=== PATIENT | female | born 1995 | race Caucasian/White ===

== ENCOUNTER 2018-01-15 03:15 | Emergency (ER) | payer BC ==
--- NOTE | 2018-01-15 03:25 | ED ---
Back Pain [facility] - General Chief Complaint: Back Pain/Injury Stated Complaint: back pain Time Seen by Provider: 01/15/18 03:24 Source: patient Limitations: no limitations - History of Present Illness Initial Comments: Camila is a 22-year-old female who presents to the emergency department today for evaluation of 3 days of low back pain as well as missed menstrual cycle. She reports that approximately one year ago she had a fall in which she broke her tailbone, she is subsequently been following with a chiropractor approximately once a month for adjustments of her lower back. Patient reports that her last adjustment was approximately one month ago. She reports over the past 3 days she's been experiencing some pain in her low back bilaterally. Pain is worse with any movement. Pain is minimally improved with Tylenol, pain resolves when she is applying a heating pad but returns when she removes the heating pad. Patient denies any recent heavy lifting or twisting, she denies any specific injuries. She hasn't had any slips falls or car accidents. Pain came on without provocation. Patient denies any radiation of the pain down her legs. She denies any numbness or tingling in legs. She denies any loss of sensation in the perineum. She denies any bowel or bladder incontinence or retention. She denies any weakness or change in her gait. History of IV drug abuse, she's had no history of cancers. She denies any recent fevers chills nausea or vomiting. Patient also states that in June of this year she was evaluated by gynecology and placed on oral contraceptive pills to regulate her irregular periods patient states that since that time she has had regular periods at the regularly scheduled time with her pills. She states that she should've had a period approximately 10 days ago and didn't. She is sexually active with a single male partner, she has not taken any tests at home. Her test here today is negative. - Related Data Home Medications Medication Instructions Recorded Confirmed Levonorgestrel-Ethin Estradiol 1 tab PO DAILY 08/22/15 02/24/16 [Falmina-28 Tablet] Multivitamins, Thera [Multivitamin] 1 tab PO DAILY 08/22/15 02/24/16 Levothyroxine Sodium [Synthroid] 50 mcg PO DAILY 12/08/15 02/24/16 Ibuprofen [Motrin] 600 mg PO Q8HR PRN 01/16/16 02/20/16 Previous Rx's Medication Instructions Recorded Lidocaine 5% Patch [Lidoderm] 1 patch TOPICAL DAILY #30 patch 01/15/18 Methocarbamol [Robaxin-750] 750 mg PO TID #30 tablet 01/15/18 Allergies Allergy/AdvReac Type Severity Reaction Status Date / Time sulfamethoxazole Allergy Rash/Hives Verified 01/15/18 03:22 [From Bactrim] trimethoprim [From Bactrim] Allergy Rash/Hives Verified 01/15/18 03:22 Review of Systems ROS Statement: Those systems with pertinent positive or pertinent negative responses have been documented in the HPI. ROS Other: All systems not noted in ROS Statement are negative. Past Medical History Past Medical History: Syncope, Thyroid Disorder Additional Past Medical History / Comment(s): see DR Steen H & P History of Any Multi-Drug Resistant Organisms: MRSA Date of last positivie culture/infection: 2009 MDRO Source:: buttock Past Surgical History: No Surgical Hx Reported Additional Past Surgical History / Comment(s): wisdom teeth removed Past Anesthesia/Blood Transfusion Reactions: No Reported Reaction Past Psychological History: No Psychological Hx Reported Smoking Status: Never smoker Past Alcohol Use History: Rare Past Drug Use History: None Reported - Past Family History Mother Family Medical History: No Reported History General Exam - General Exam Comments Initial Comments: GENERAL: Patient is well-developed and well-nourished. Patient is nontoxic and well- hydrated and is in no distress. HENT: Normocephalic, Atraumatic. Neck is soft and supple. EYES: The sclera were anicteric and conjunctiva were pink and moist. Extraocular movements were intact and pupils were equal round and reactive to light. Eyelids were unremarkable. PULMONARY: Unlabored respirations. Good breath sounds bilaterally. No audible rales rhonchi or wheezing was noted. CARDIOVASCULAR: There is a regular rate and rhythm without any murmurs gallops or rubs. ABDOMEN: Soft and nontender with normal bowel sounds. SKIN: Skin is clear with no lesions or rashes and otherwise unremarkable. NEUROLOGIC: Patient is alert and oriented x3. Cranial nerves II through XII are grossly intact. Motor and sensory are also intact. Normal speech, volume and content. Symmetrical smile. Normal patellar reflexes bilaterally. Normal strength and sensation in the bilateral lower extremities. MUSCULOSKELETAL: Normal extremities with adequate strength and full range of motion. No lower extremity swelling or edema. No calf tenderness. LYMPHATICS: No significant lymphadenopathy is noted PSYCHIATRIC: Normal psychiatric evaluation. Limitations: no limitations Limitations: no limitations Course Vital Signs 01/15/18 01/15/18 03:18 05:25 Temperature 99 F 98.5 F Pulse Rate 97 90 Respiratory 18 16 Rate Blood Pressure 146/79 128/91 O2 Sat by Pulse 100 99 Oximetry Medical Decision Making - Medical Decision Making Patient was seen and evaluated, history obtained from the patient and her mother bedside She with 3 days of atraumatic low back pain, no red flag symptoms Patient also missed her menses this month, urinalysis and urine tests were obtained Urinalysis feels gross contamination with squamous epithelium but no evidence of acute urinary tract infection, and urine test negative I have a high suspicion for musculoskeletal etiology of the patient's pain will treat with Norflex, Toradol and Lidoderm Patient was reevaluated after meds. Reported some improvement in her discomfort. Management of acute low back pain was discussed with the patient including avoidance of complete bedrest as this can worsen musculoskeletal pain. Avoidance of heavy lifting or exertion. All questions pertaining to care were answered best my ability the patient is discharged home in stable condition. - Lab Data Lab Results 01/15/18 01/15/18 Range/Units 03:50 03:50 Urine Color Yellow Urine Appearance Cloudy H (Clear) Urine pH 5.5 (5.0-8.0) Ur Specific [place] 1.022 (1.001-1.035) Urine Protein Negative (Negative) Urine Glucose (UA) Negative (Negative) Urine Ketones Negative (Negative) Urine Blood Trace H (Negative) Urine Nitrite Negative (Negative) Urine Bilirubin Negative (Negative) Urine Urobilinogen <2.0 (<2.0) mg/dL Ur Leukocyte Esterase Large H (Negative) Urine RBC 4 (0-5) /hpf Urine WBC 11 H (0-5) /hpf Ur Squamous Epith Cells 20 H (0-4) /hpf Urine Mucus Rare H (None) /hpf Urine HCG, Qual Not Detected (Not Detectd) Disposition Clinical Impression: Mechanical back pain, Irregular menses Disposition: HOME SELF-CARE Condition: Good Instructions: Acute Low Back Pain (ED) Prescriptions: Lidocaine 5% Patch [Lidoderm] 1 patch TOPICAL DAILY #30 patch Methocarbamol [Robaxin-750] 750 mg PO TID #30 tablet Is patient prescribed a controlled substance at d/c from ED?: No Referrals: Jessica Cotter MD [Primary Care Provider] - 1-2 days Time of Disposition: 05:18
[2018-01-15 04:03] LABS: Appearance,Urine Cloudy (Clear); Bilirubin,Urine Negative (Negative); Blood,Urine Trace (Negative); Color,Urine Yellow; Glucose,Urine (UA) Negative (Negative); Ketones,Urine Negative (Negative); Leukocyte Esterase,Urine Large (Negative); Mucus,Urine Rare /hpf; Nitrite,Urine Negative (Negative); PH, Urine 5.5 (5.0-8.0); Protein,Urine Negative (Negative); RBC,Urine 4 /hpf (0-5); Specific Gravity,Urine 1.022 (1.001-1.035); Squamous Epithelial Cell,Urine 20 /hpf (0-4); Urobilinogen,Urine <2.0 mg/dL (<2.0); WBC,Urine 11 /hpf (0-5)
[2018-01-15] MEDS ORDERED: ORPHENADRINE 30 MG/ML 2 ML VIAL IM STA (04:18)
[2018-01-15] MEDS ORDERED: KETOROLAC 30 MG/ML 1 ML VIAL IM STA (04:27)
[2018-01-15] MEDS ORDERED: LIDOCAINE 5% PATCH TOPICAL SCH (04:30)
[2018-01-15 05:26] VITALS: BP 128/91; PULSE 90; RESP 16; TEMP 98.5
== END 2018-01-15 05:26 | disposition home or self-care (01) ==
LOC: EC 03:15
DX: M54.5 Low back pain (principal); N92.6 Irregular menstruation, unspecified; Z32.02 Encounter for pregnancy test, result negative; Z79.899 Other long term (current) drug therapy; Z88.2 Allergy status to sulfonamides
CPT/HCPCS: 81001; 81025; 99283; 96372 ×2; J2360; J1885

== ENCOUNTER → 2018-01-26 | Outpatient (CLI) | payer BC ==
--- NOTE | 2018-01-26 15:08 | XR ---
Lumbosacral spine HISTORY: Low back pain 5 views of the lumbosacral spine Anterolisthesis grade 1 L5-S1 with associated loss of disc height. Bilateral spondylolysis present at L5. Lumbar vertebral bodies show preserved height and bone mineralization. Possible spinal curvature . IMPRESSION: Spondylolysis, spondylolisthesis.
== END | disposition home or self-care (01) ==
LOC: RADXRYALE 13:15
PROVIDERS: ATTEND Internal Medicine
DX: M43.17 Spondylolisthesis, lumbosacral region (principal); M47.817 Spondylosis without myelopathy or radiculopathy, lumbosacral region
CPT/HCPCS: 72110

== ENCOUNTER 2018-07-25 08:40 | Emergency (ER) | payer BC ==
[2018-07-25 08:47] VITALS: RESP 18
[2018-07-25] MEDS ORDERED: SODIUM CHLORIDE 0.9% 1,000 ML IV STA (09:25)
[2018-07-25] MEDS ORDERED: ONDANSETRON 4 MG/2 ML VIAL IVP STA (09:26)
--- NOTE | 2018-07-25 09:35 | ED ---
Nausea/Vomiting/Diarrhea HPI - General Chief complaint: Nausea/Vomiting/Diarrhea Stated complaint: nausea, weakness Time Seen by Provider: 07/25/18 09:18 Source: patient, RN notes reviewed Mode of arrival: ambulatory Limitations: no limitations - History of Present Illness Initial comments: 21-year-old female presents emergency Department with chief complaint of ongoing nausea, palpitations. Patient states she had some symptoms on Wednesday while in class for school. She states that she felt very sweaty states that her was racing. She did eat some candy in which his symptoms resolved so she felt that she did to some hypoglycemia. Patient that she is on her way to school again today states that she was driving started feeling her heart was racing and pulled over: Mother brought to emergency department. Patient states that she's having worsening nausea but no abdominal pain. She has no history of reflux. She denies any chest pain. She states the palpitations have resolved again. Denies feeling anxious. Patient does admit that she has a history of hypothyroidism but states that she has not been taking her medication because she does not like the fact that she cannot eat while taking her medication the morning. Patient denies any dysuria, hematuria. She does admit that she takes control but states that she's been seen control. Patient denies any upper chest pain, headache, dizziness, blurred vision or any focal weakness. - Related Data Home Medications Medication Instructions Recorded Confirmed Lo Loestrin 1 tab PO HS 07/25/18 07/25/18 Previous Rx's Medication Instructions Recorded Omeprazole [PriLOSEC] 20 mg PO AC-BRKFST #14 cap 07/25/18 Ondansetron Odt [Zofran Odt] 4 mg PO Q8HR PRN #10 tab 07/25/18 Allergies Allergy/AdvReac Type Severity Reaction Status Date / Time sulfamethoxazole Allergy Rash/Hives Verified 07/25/18 08:47 [From Bactrim] trimethoprim [From Bactrim] Allergy Rash/Hives Verified 07/25/18 08:47 Review of Systems ROS Statement: Those systems with pertinent positive or pertinent negative responses have been documented in the HPI. ROS Other: All systems not noted in ROS Statement are negative. Past Medical History Past Medical History: Syncope, Thyroid Disorder Additional Past Medical History / Comment(s): see DR Steen H & P History of Any Multi-Drug Resistant Organisms: MRSA Date of last positivie culture/infection: 2009 MDRO Source:: buttock Past Surgical History: No Surgical Hx Reported Additional Past Surgical History / Comment(s): wisdom teeth removed Past Anesthesia/Blood Transfusion Reactions: No Reported Reaction Past Psychological History: No Psychological Hx Reported Smoking Status: Never smoker Past Alcohol Use History: Rare Past Drug Use History: None Reported - Past Family History Mother Family Medical History: No Reported History General Exam Limitations: no limitations General appearance: alert, in no apparent distress Head exam: Present: atraumatic, normocephalic, normal inspection Eye exam: Present: normal appearance, PERRL, EOMI. Absent: scleral icterus, conjunctival injection, periorbital swelling ENT exam: Present: normal exam, normal oropharynx, mucous membranes moist, TM's normal bilaterally Neck exam: Present: normal inspection, full ROM. Absent: tenderness, meningismus, lymphadenopathy Respiratory exam: Present: normal lung sounds bilaterally. Absent: respiratory distress, wheezes, rales, rhonchi, stridor Cardiovascular Exam: Present: regular rate, normal rhythm, normal heart sounds. Absent: systolic murmur, diastolic murmur, rubs, gallop, clicks GI/Abdominal exam: Present: soft, normal bowel sounds. Absent: distended, tenderness, guarding, rebound, rigid Neurological exam: Present: alert, oriented X3, CN II-XII intact Skin exam: Present: warm, dry, intact, normal color. Absent: rash Course Vital Signs 07/25/18 08:45 Temperature 98.2 F Pulse Rate 96 Respiratory 18 Rate Blood Pressure 140/86 O2 Sat by Pulse 99 Oximetry Medical Decision Making - Medical Decision Making 23-year-old female presented emergency department for palpitations, nausea. Patient's labwork is unremarkable. TSH is unremarkable. Patient did have a headache T3 at this time. Patient will follow-up with cardiology for palpitations, we given and antacids for her possible GERD. Return parameters were discussed. - Lab Data Result diagrams: 07/25/18 09:34 07/25/18 09:34 Lab Results 07/25/18 07/25/18 07/25/18 Range/Units 09:15 09:15 09:34 WBC 10.6 (3.8-10.6) k/uL RBC 4.77 (3.80-5.40) m/uL Hgb 14.0 (11.4-16.0) gm/dL Hct 42.8 (34.0-46.0) % MCV 89.9 (80.0-100.0) fL MCH 29.5 (25.0-35.0) pg MCHC 32.8 (31.0-37.0) g/dL RDW 12.9 (11.5-15.5) % Plt Count 372 (150-450) k/uL Neutrophils % 57 % Lymphocytes % 35 % Monocytes % 5 % Eosinophils % 1 % Basophils % 1 % Neutrophils # 6.1 (1.3-7.7) k/uL Lymphocytes # 3.7 (1.0-4.8) k/uL Monocytes # 0.5 (0-1.0) k/uL Eosinophils # 0.2 (0-0.7) k/uL Basophils # 0.1 (0-0.2) k/uL Sodium (137-145) mmol/L Potassium (3.5-5.1) mmol/L Chloride (98-107) mmol/L Carbon Dioxide (22-30) mmol/L Anion Gap mmol/L BUN (7-17) mg/dL Creatinine (0.52-1.04) mg/dL Est GFR (CKD-EPI)AfAm (>60 ml/min/1.73 sqM) Est GFR (CKD-EPI)NonAf (>60 ml/min/1.73 sqM) Glucose (74-99) mg/dL Calcium (8.4-10.2) mg/dL Total Bilirubin (0.2-1.3) mg/dL AST (14-36) U/L ALT (9-52) U/L Alkaline Phosphatase (38-126) U/L Total Protein (6.3-8.2) g/dL Albumin (3.5-5.0) g/dL Lipase (23-300) U/L TSH (0.465-4.680) mIU/L Urine Color Yellow Urine Appearance Clear (Clear) Urine pH 6.0 (5.0-8.0) Ur Specific [place] 1.015 (1.001-1.035) Urine Protein Negative (Negative) Urine Glucose (UA) Negative (Negative) Urine Ketones Negative (Negative) Urine Blood Negative (Negative) Urine Nitrite Negative (Negative) Urine Bilirubin Negative (Negative) Urine Urobilinogen <2.0 (<2.0) mg/dL Ur Leukocyte Esterase Negative (Negative) Urine HCG, Qual Not Detected (Not Detectd) 07/25/18 Range/Units 09:34 WBC (3.8-10.6) k/uL RBC (3.80-5.40) m/uL Hgb (11.4-16.0) gm/dL Hct (34.0-46.0) % MCV (80.0-100.0) fL MCH (25.0-35.0) pg MCHC (31.0-37.0) g/dL RDW (11.5-15.5) % Plt Count (150-450) k/uL Neutrophils % % Lymphocytes % % Monocytes % % Eosinophils % % Basophils % % Neutrophils # (1.3-7.7) k/uL Lymphocytes # (1.0-4.8) k/uL Monocytes # (0-1.0) k/uL Eosinophils # (0-0.7) k/uL Basophils # (0-0.2) k/uL Sodium 139 (137-145) mmol/L Potassium 4.5 (3.5-5.1) mmol/L Chloride 107 (98-107) mmol/L Carbon Dioxide 23 (22-30) mmol/L Anion Gap 9 mmol/L BUN 12 (7-17) mg/dL Creatinine 0.64 (0.52-1.04) mg/dL Est GFR (CKD-EPI)AfAm >90 (>60 ml/min/1.73 sqM) Est GFR (CKD-EPI)NonAf >90 (>60 ml/min/1.73 sqM) Glucose 92 (74-99) mg/dL Calcium 9.9 (8.4-10.2) mg/dL Total Bilirubin 0.3 (0.2-1.3) mg/dL AST 21 (14-36) U/L ALT 24 (9-52) U/L Alkaline Phosphatase 57 (38-126) U/L Total Protein 7.8 (6.3-8.2) g/dL Albumin 4.7 (3.5-5.0) g/dL Lipase 49 (23-300) U/L TSH 1.650 (0.465-4.680) mIU/L Urine Color Urine Appearance (Clear) Urine pH (5.0-8.0) Ur Specific [place] (1.001-1.035) Urine Protein (Negative) Urine Glucose (UA) (Negative) Urine Ketones (Negative) Urine Blood (Negative) Urine Nitrite (Negative) Urine Bilirubin (Negative) Urine Urobilinogen (<2.0) mg/dL Ur Leukocyte Esterase (Negative) Urine HCG, Qual (Not Detectd) - EKG Data EKG Comments: EKG performed at 9:52 normal sinus rhythm with rate of 71. 150 QRS 80 QT/QTC 396/4:30 Disposition Clinical Impression: Palpitations, GERD (gastroesophageal reflux disease), Nausea Disposition: HOME SELF-CARE Condition: Stable Instructions (If sedation given, give patient instructions): Heart Palpitations (ED), Gastroesophageal Reflux Disease (ED) Additional Instructions: Please return to the Emergency Department if symptoms worsen or any other concerns. Prescriptions: Omeprazole [PriLOSEC] 20 mg PO AC-BRKFST #14 cap Ondansetron Odt [Zofran Odt] 4 mg PO Q8HR PRN #10 tab PRN Reason: Nausea Is patient prescribed a controlled substance at d/c from ED?: No Referrals: Jessica Cotter MD [Primary Care Provider] - 1-2 days Aj Steen MD [STAFF PHYSICIAN] - 1-2 days Time of Disposition: 11:18
[2018-07-25 10:10] LABS: Basophils # (A) 0.1 k/uL (0-0.2); Basophils % (A) 1 %; Eosinophils # (A) 0.2 k/uL (0-0.7); Eosinophils % (A) 1 %; HCT 42.8 % (34.0-46.0); Lymphocytes # (A) 3.7 k/uL (1.0-4.8); Lymphocytes % (A) 35 %; MCH 29.5 pg (25.0-35.0); MCHC 32.8 g/dL (31.0-37.0); MCV 89.9 fL (80.0-100.0); Mean Platelet Volume 7.2; Monocytes # (A) 0.5 k/uL (0-1.0); Monocytes % (A) 5 %; Neutrophils # (A) 6.1 k/uL (1.3-7.7); Neutrophils % (A) 57 %; Platelet Count 372 k/uL (150-450); RBC 4.77 m/uL (3.80-5.40); RDW 12.9 % (11.5-15.5); WBC 10.6 k/uL (3.8-10.6)
[2018-07-25 10:22] LABS: ALT 24 U/L (9-52); AST 21 U/L (14-36); Albumin 4.7 g/dL (3.5-5.0); Alkaline Phosphatase 57 U/L (38-126); Anion Gap 9 mmol/L; Blood Urea Nitrogen 12 mg/dL (7-17); Calcium 9.9 mg/dL (8.4-10.2); Carbon Dioxide 23 mmol/L (22-30); Chloride 107 mmol/L (98-107); Glucose 92 mg/dL (74-99); Lipase 49 U/L (23-300); Potassium 4.5 mmol/L (3.5-5.1); Sodium 139 mmol/L (137-145); Total Bilirubin 0.3 mg/dL (0.2-1.3); Total Protein 7.8 g/dL (6.3-8.2)
[2018-07-25 10:48] LABS: Appearance,Urine Clear (Clear); Color,Urine Yellow
[2018-07-25 10:49] LABS: Glucose,Urine (UA) Negative (Negative); Protein,Urine Negative (Negative); Specific Gravity,Urine 1.015 (1.001-1.035)
[2018-07-25 10:50] LABS: Bilirubin,Urine Negative (Negative); Blood,Urine Negative (Negative); Ketones,Urine Negative (Negative); Leukocyte Esterase,Urine Negative (Negative); Nitrite,Urine Negative (Negative); Urobilinogen,Urine <2.0 mg/dL (<2.0)
[2018-07-25 11:34] VITALS: BP 120/82; PULSE 74; TEMP 98.6
== END 2018-07-25 11:34 | disposition home or self-care (01) ==
LOC: EC 08:40
DX: K21.9 Gastro-esophageal reflux disease without esophagitis (principal); R00.2 Palpitations; R11.0 Nausea; R51 Headache; Z88.1 Allergy status to other antibiotic agents; Z88.2 Allergy status to sulfonamides; Z91.14 Patient's other noncompliance with medication regimen
CPT/HCPCS: 36415; 93005; 80053; 84443; 83690; 85025; 81003; 81025; 84480; 99284; 96374; 96361; J2405

== ENCOUNTER 2019-05-22 16:03 | Emergency (ER) | payer BC ==
[2019-05-22 16:58] VITALS: TEMP 99
[2019-05-22] MEDS ORDERED: SODIUM CHLORIDE 0.9% 1,000 ML IV STA ×2 (17:32→17:35)
[2019-05-22] MEDS ORDERED: AMPICILLIN-SULBACTAM 3 GM in SODIUM CHLORIDE 0.9% 100 ML IVPB STA (17:32)
[2019-05-22] MEDS ORDERED: SODIUM CHLORIDE 0.9% 500 ML 500 ML IV STA (17:32)
[2019-05-22] MEDS ORDERED: DEXAMETHASONE SOD PHOSPHATE 10 MG/ML 1 ML VIAL IV STA (17:32)
[2019-05-22] MEDS ORDERED: ACETAMINOPHEN TAB 500 MG TAB PO STA (17:33)
--- NOTE | 2019-05-22 17:49 | ED ---
General Adult HPI - General Chief complaint: Fever Stated complaint: dizziness/swollen tongue Time Seen by Provider: 05/22/19 17:03 Source: patient, RN notes reviewed Mode of arrival: ambulatory Limitations: no limitations - History of Present Illness Initial comments: 24-year-old female with a past mental history tachycardia, syncope, thyroid disorder presents to the emergency department for chief complaint of fever. Patient states she has had a fever for 6 days. She last took Motrin about 5 hours ago. States that she had a positive strep test at urgent care yesterday. States that she has had antibiotic for 24 hours but her mother was concerned she is dehydrated given the painful sores on her lip and tongue so she wanted her to be evaluated in the emergency department. States she has not been eating or drinking as much as normal.denies neck stiffness. Denies difficulty swallowing. Patient has no other complaints at this time including shortness of breath, chest pain, abdominal pain, nausea or vomiting, headache, or visual changes. - Related Data Home Medications Medication Instructions Recorded Confirmed Lo Loestrin 1 tab PO HS 07/25/18 07/25/18 Previous Rx's Medication Instructions Recorded Omeprazole [PriLOSEC] 20 mg PO AC-BRKFST #14 cap 07/25/18 Ondansetron Odt [Zofran Odt] 4 mg PO Q8HR PRN #10 tab 07/25/18 Lidocaine Viscous 2% [Xylocaine 5 ml MUCOUS MEM QID #50 ml 05/22/19 Viscous] Allergies Allergy/AdvReac Type Severity Reaction Status Date / Time sulfamethoxazole Allergy Rash/Hives Verified 05/22/19 16:58 [From Bactrim] trimethoprim [From Bactrim] Allergy Rash/Hives Verified 05/22/19 16:58 Review of Systems ROS Statement: Those systems with pertinent positive or pertinent negative responses have been documented in the HPI. ROS Other: All systems not noted in ROS Statement are negative. Past Medical History Past Medical History: Syncope, Thyroid Disorder Additional Past Medical History / Comment(s): see DR Steen H & P History of Any Multi-Drug Resistant Organisms: MRSA Date of last positivie culture/infection: 2009 MDRO Source:: buttock Past Surgical History: No Surgical Hx Reported Additional Past Surgical History / Comment(s): wisdom teeth removed Past Anesthesia/Blood Transfusion Reactions: No Reported Reaction Past Psychological History: No Psychological Hx Reported Smoking Status: Never smoker Past Alcohol Use History: Rare Past Drug Use History: None Reported - Past Family History Mother Family Medical History: No Reported History General Exam Limitations: no limitations General appearance: alert, in no apparent distress Head exam: Present: atraumatic, normocephalic, normal inspection Eye exam: Present: normal appearance, PERRL, EOMI. Absent: scleral icterus, conjunctival injection, periorbital swelling ENT exam: Present: normal exam, mucous membranes dry, normal external ear exam. Absent: normal oropharynx (Patient has white plaque noted to the dorsum of the tongue. She also has superficial resting sores noted to the lower lip) Neck exam: Present: normal inspection, full ROM. Absent: tenderness, meningismus, lymphadenopathy Respiratory exam: Present: normal lung sounds bilaterally. Absent: respiratory distress, wheezes, rales, rhonchi, stridor Cardiovascular Exam: Present: regular rate, normal rhythm, normal heart sounds. Absent: systolic murmur, diastolic murmur, rubs, gallop, clicks GI/Abdominal exam: Present: soft, normal bowel sounds. Absent: distended, te nderness, guarding, rebound, rigid Neurological exam: Present: alert Course Vital Signs 05/22/19 05/22/19 05/22/19 16:54 18:17 19:23 Temperature 99.0 F Pulse Rate 129 H 110 H 116 H Respiratory 24 16 18 Rate Blood Pressure 142/92 119/93 O2 Sat by Pulse 100 98 99 Oximetry Medical Decision Making - Medical Decision Making HPI and physical exam is documented. Physical exam is pertinent for white plaque on the dorsum of the tongue as well as x-rays on the bilateral tonsils. However uvula is midline. Tonsillar pillars are symmetric. Patient initially tachycardic on presentation to the emergency department which is likely secondary to fever and dehydration. This did improve to 94 when I am in the room after Tylenol and fluids. CBC CMP unremarkable. Minimal transaminitis. Urinalysis does show 2+ ketones. It'll be cultured otherwise. Patient was given IV Decadron, Unasyn here in the emergency department. She does not have any difficulty swallowing and will continue amoxicillin at home. She will follow up with primary care in 1-2 days. She'll return here if she has any worsening symptoms. - Lab Data Result diagrams: 05/22/19 17:58 05/22/19 17:58 Lab Results 05/22/19 05/22/19 05/22/19 Range/Units 17:58 17:58 17:58 WBC 9.0 (3.8-10.6) k/uL RBC 4.51 (3.80-5.40) m/uL Hgb 13.8 (11.4-16.0) gm/dL Hct 40.2 (34.0-46.0) % MCV 89.0 (80.0-100.0) fL MCH 30.6 (25.0-35.0) pg MCHC 34.4 (31.0-37.0) g/dL RDW 11.5 (11.5-15.5) % Plt Count 295 (150-450) k/uL Neutrophils % 67 % Lymphocytes % 22 % Monocytes % 8 % Eosinophils % 1 % Basophils % 1 % Neutrophils # 6.0 (1.3-7.7) k/uL Lymphocytes # 2.0 (1.0-4.8) k/uL Monocytes # 0.7 (0-1.0) k/uL Eosinophils # 0.0 (0-0.7) k/uL Basophils # 0.1 (0-0.2) k/uL Sodium 138 (137-145) mmol/L Potassium 3.8 (3.5-5.1) mmol/L Chloride 101 (98-107) mmol/L Carbon Dioxide 24 (22-30) mmol/L Anion Gap 13 mmol/L BUN 11 (7-17) mg/dL Creatinine 0.64 (0.52-1.04) mg/dL Est GFR (CKD-EPI)AfAm >90 (>60 ml/min/1.73 sqM) Est GFR (CKD-EPI)NonAf >90 (>60 ml/min/1.73 sqM) Glucose 90 (74-99) mg/dL Plasma Lactic Acid Danny 1.1 (0.7-2.0) mmol/L Calcium 9.3 (8.4-10.2) mg/dL Total Bilirubin 0.7 (0.2-1.3) mg/dL AST 38 H (14-36) U/L ALT 35 H (4-34) U/L Alkaline Phosphatase 98 (38-126) U/L Total Protein 7.9 (6.3-8.2) g/dL Albumin 4.6 (3.5-5.0) g/dL Urine Color Urine Appearance (Clear) Urine pH (5.0-8.0) Ur Specific [place] (1.001-1.035) Urine Protein (Negative) Urine Glucose (UA) (Negative) Urine Ketones (Negative) Urine Blood (Negative) Urine Nitrite (Negative) Urine Bilirubin (Negative) Urine Urobilinogen (<2.0) mg/dL Ur Leukocyte Esterase (Negative) Urine RBC (0-5) /hpf Urine WBC (0-5) /hpf Ur Squamous Epith Cells (0-4) /hpf Urine Bacteria (None) /hpf Urine Mucus (None) /hpf Urine HCG, Qual (Not Detectd) 05/22/19 05/22/19 Range/Units 17:58 17:58 WBC (3.8-10.6) k/uL RBC (3.80-5.40) m/uL Hgb (11.4-16.0) gm/dL Hct (34.0-46.0) % MCV (80.0-100.0) fL MCH (25.0-35.0) pg MCHC (31.0-37.0) g/dL RDW (11.5-15.5) % Plt Count (150-450) k/uL Neutrophils % % Lymphocytes % % Monocytes % % Eosinophils % % Basophils % % Neutrophils # (1.3-7.7) k/uL Lymphocytes # (1.0-4.8) k/uL Monocytes # (0-1.0) k/uL Eosinophils # (0-0.7) k/uL Basophils # (0-0.2) k/uL Sodium (137-145) mmol/L Potassium (3.5-5.1) mmol/L Chloride (98-107) mmol/L Carbon Dioxide (22-30) mmol/L Anion Gap mmol/L BUN (7-17) mg/dL Creatinine (0.52-1.04) mg/dL Est GFR (CKD-EPI)AfAm (>60 ml/min/1.73 sqM) Est GFR (CKD-EPI)NonAf (>60 ml/min/1.73 sqM) Glucose (74-99) mg/dL Plasma Lactic Acid Danny (0.7-2.0) mmol/L Calcium (8.4-10.2) mg/dL Total Bilirubin (0.2-1.3) mg/dL AST (14-36) U/L ALT (4-34) U/L Alkaline Phosphatase (38-126) U/L Total Protein (6.3-8.2) g/dL Albumin (3.5-5.0) g/dL Urine Color Yellow Urine Appearance Clear (Clear) Urine pH 5.5 (5.0-8.0) Ur Specific [place] 1.011 (1.001-1.035) Urine Protein Negative (Negative) Urine Glucose (UA) Negative (Negative) Urine Ketones 2+ H (Negative) Urine Blood Small H (Negative) Urine Nitrite Negative (Negative) Urine Bilirubin Negative (Negative) Urine Urobilinogen <2.0 (<2.0) mg/dL Ur Leukocyte Esterase Trace H (Negative) Urine RBC <1 (0-5) /hpf Urine WBC 4 (0-5) /hpf Ur Squamous Epith Cells 3 (0-4) /hpf Urine Bacteria Rare H (None) /hpf Urine Mucus Rare H (None) /hpf Urine HCG, Qual Not Detected (Not Detectd) Disposition Clinical Impression: Pharyngitis Disposition: HOME SELF-CARE Condition: Good Instructions (If sedation given, give patient instructions): Strep Throat (ED), Fever in Adults (ED) Additional Instructions: Please take amoxicillin as directed. Follow-up with your primary care provider in one to 2 days. Return here to the emergency department if you have any worsening symptoms. Magic mouthwash directions: Mixed 5 mL of viscous lidocaine with 5 mL of liquid Benadryl and 5 mL of Maalox. Swish and spit up to every 6 hours as needed. Prescriptions: Lidocaine Viscous 2% [Xylocaine Viscous] 5 ml MUCOUS MEM QID #50 ml Is patient prescribed a controlled substance at d/c from ED?: No Referrals: Jessica Cotter MD [Primary Care Provider] - 1-2 days Time of Disposition: 19:05
[2019-05-22 18:17] LABS: Appearance,Urine Clear (Clear); Bacteria,Urine Rare /hpf; Bilirubin,Urine Negative (Negative); Blood,Urine Small (Negative); Color,Urine Yellow; Glucose,Urine (UA) Negative (Negative); Ketones,Urine 2+ (Negative); Leukocyte Esterase,Urine Trace (Negative); Mucus,Urine Rare /hpf; Nitrite,Urine Negative (Negative); PH, Urine 5.5 (5.0-8.0); Protein,Urine Negative (Negative); RBC,Urine <1 /hpf (0-5); Specific Gravity,Urine 1.011 (1.001-1.035); Squamous Epithelial Cell,Urine 3 /hpf (0-4); Urobilinogen,Urine <2.0 mg/dL (<2.0); WBC,Urine 4 /hpf (0-5)
[2019-05-22 18:25] LABS: ALT 35 U/L (4-34); AST 38 U/L (14-36); African American GFR (CKD) >90 (>60 ml/min/1.73 sqM); Albumin 4.6 g/dL (3.5-5.0); Alkaline Phosphatase 98 U/L (38-126); Anion Gap 13 mmol/L; Blood Urea Nitrogen 11 mg/dL (7-17); Calcium 9.3 mg/dL (8.4-10.2); Carbon Dioxide 24 mmol/L (22-30); Chloride 101 mmol/L (98-107); Glucose 90 mg/dL (74-99); Non-African American GFR(CKD) >90 (>60 ml/min/1.73 sqM); Potassium 3.8 mmol/L (3.5-5.1); Sodium 138 mmol/L (137-145); Total Bilirubin 0.7 mg/dL (0.2-1.3); Total Protein 7.9 g/dL (6.3-8.2)
[2019-05-22 18:32] LABS: Basophils # (A) 0.1 k/uL (0-0.2); Basophils % (A) 1 %; Eosinophils % (A) 1 %; HCT 40.2 % (34.0-46.0); HGB 13.8 gm/dL (11.4-16.0); Lymphocytes % (A) 22 %; MCH 30.6 pg (25.0-35.0); MCHC 34.4 g/dL (31.0-37.0); Mean Platelet Volume 7.3; Monocytes # (A) 0.7 k/uL (0-1.0); Monocytes % (A) 8 %; Neutrophils % (A) 67 %; Platelet Count 295 k/uL (150-450); RBC 4.51 m/uL (3.80-5.40); RDW 11.5 % (11.5-15.5)
[2019-05-22 19:25] VITALS: RESP 18
[2019-05-22 19:38] VITALS: BP 123/72; PULSE 90
== END 2019-05-22 20:02 | disposition home or self-care (01) ==
LOC: EC 16:03
DX: J02.0 Streptococcal pharyngitis (principal); R00.0 Tachycardia, unspecified; K13.29 Other disturbances of oral epithelium, including tongue; E86.0 Dehydration; R74.0 Nonspecific elevation of levels of transaminase and lactic acid dehydrogenase [LDH]; Z88.2 Allergy status to sulfonamides; Z79.3 Long term (current) use of hormonal contraceptives; Z86.14 Personal history of Methicillin resistant Staphylococcus aureus infection; Z53.8 Procedure and treatment not carried out for other reasons
CPT/HCPCS: 99283; 96365; 96375; 36415; 80053; 83605; 85025; 81001; 81025; 87086; J1100; J0295

== ENCOUNTER 2019-05-24 12:03 | Inpatient (IN) | payer BC ==
[2019-05-24] MEDS ORDERED: DOXYCYCLINE 100 MG in SODIUM CHLORIDE 0.9% 100 ML IVPB SCH (13:45)
[2019-05-24 14:14] LABS: Basophils # (A) 0.1 k/uL (0-0.2); Basophils % (A) 1 %; Eosinophils % (A) 0 %; HCT 41.7 % (34.0-46.0); HGB 13.8 gm/dL (11.4-16.0); Lymphocytes # (A) 2.7 k/uL (1.0-4.8); Lymphocytes % (A) 26 %; MCH 30.1 pg (25.0-35.0); MCHC 33.1 g/dL (31.0-37.0); Mean Platelet Volume 7.2; Monocytes # (A) 0.4 k/uL (0-1.0); Monocytes % (A) 4 %; Neutrophils % (A) 67 %; Platelet Count 363 k/uL (150-450); RBC 4.58 m/uL (3.80-5.40); RDW 11.5 % (11.5-15.5); WBC 10.5 k/uL (3.8-10.6)
[2019-05-24 14:27] LABS: ALT 38 U/L (4-34); AST 33 U/L (14-36); African American GFR (CKD) >90 (>60 ml/min/1.73 sqM); Albumin 4.7 g/dL (3.5-5.0); Alkaline Phosphatase 99 U/L (38-126); Anion Gap 12 mmol/L; Blood Urea Nitrogen 18 mg/dL (7-17); C Reactive Protein 23.2 mg/L (<10.0); Calcium 9.7 mg/dL (8.4-10.2); Carbon Dioxide 25 mmol/L (22-30); Chloride 105 mmol/L (98-107); Glucose 83 mg/dL (74-99); Non-African American GFR(CKD) >90 (>60 ml/min/1.73 sqM); Potassium 4.1 mmol/L (3.5-5.1); Sodium 142 mmol/L (137-145); Total Bilirubin 0.6 mg/dL (0.2-1.3); Total Protein 8.4 g/dL (6.3-8.2)
[2019-05-24] MEDS: NYSTATIN 100,000 UNIT/ML SUSP 500,000 UNIT/5 ML CUP PO SCH ×2 (15:07→21:29)
[2019-05-24] MEDS: SODIUM CHLORIDE 0.9% 1,000 ML IV SCH (15:08)
[2019-05-24 15:22] LABS: Erythrocyte Sedimentation Rate 30 mm/hr (0-20)
[2019-05-24] MEDS: ACYCLOVIR SODIUM 800 MG in SODIUM CHLORIDE 0.9% 250 ML IVPB SCH ×2 (16:17→23:49)
[2019-05-24] MEDS ORDERED: TRIAMCINOLONE ACETONIDE 40 MG/ML 1 ML VIAL IM ONE (17:34)
--- NOTE | 2019-05-24 19:11 | XR ---
EXAMINATION TYPE: XR chest 2V DATE OF EXAM: 05/24/2019 COMPARISON: 12/08/2015 HISTORY: Chest pain TECHNIQUE: FINDINGS: Heart and mediastinum are normal. Lungs are clear. Diaphragm is normal. Bony thorax appears normal. IMPRESSION: Normal chest. No change.
[2019-05-24] MEDS: METOPROLOL SUCCINATE (ER) 25 MG TAB.ER.24H PO SCH (19:52)
--- NOTE | 2019-05-24 20:34 | CONS ---
CONSULTATION HISTORY OF PRESENT ILLNESS: Thank you for asking me to evaluate your patient, 24-year-old female, currently admitted to the hospital for a rash in and around the mouth, in the mouth and on the lips, which we were consulted to evaluate. Patient states she developed a sore throat approximately 5 days ago and she states she started to get a rash on her lips and in her mouth a couple of days after her sore throat. The patient states she went to the clinic, the walk-in clinic on Tuesday, May 21, 2019, as her sore throat was getting worse and the rash on her lips was getting worse. The patient states she had a throat culture which was positive for strep at the walk-in clinic. She states she was given a prescription for amoxicillin at the walk in clinic, however her throat and rash were not improving, therefore she presented to the ER. The patient denies any history of any cold sores. PAST MEDICAL HISTORY: Heart palpitations. PAST SURGICAL HISTORY: None. FAMILY MEDICAL HISTORY: Noncontributory. SOCIAL HISTORY: Denies alcohol use or smoking. MEDICATIONS: Metoprolol. ALLERGIES: BACTRIM. PHYSICAL EXAMINATION: On examination there are multiple erosions over the lips and buccal mucosa. There are no lesions around the eyes or in the genital area at this time. There is no rash visible on the trunk or extremities at this time. DIAGNOSIS: Erythema multiforme secondary to the bacterial strep infection versus secondary to HSV viral infection. TREATMENT: 1. Patient to continue coverage with IV acyclovir per Infectious Disease. Awaiting titers for mycoplasma and HSV, triamcinolone ointment 0.1% apply b.i.d. to lips for 10 days. 2. Kenalog 40 intramuscular injection 1 mL. 3. Magic mouthwash as directed. 4. Augmentin b.i.d. x 7 days to cover for strep. 5. Chest x-ray ordered for mycoplasma to rule out mycoplasma pneumonia. Patient to follow up in our office within 1 week of discharge. Case discussed with Dr. Florin Kee. I performed a History & Physical Examination of the patient and discussed their management with nurse practitioner. I reviewed the nurse practitioner's note and agree with the documented findings and plan of care. MMODL / IJN: [id number] / [facility]ITALAlvarado
[2019-05-24 20:48] LABS: HSV I IgG Interp NEGATIVE (NEGATIVE); HSV II IgG Interp NEGATIVE (NEGATIVE)
[2019-05-24 21:12] LABS: HIV 1 AB Non-Reactive (Non-Reactive); HIV 2 AB Non-Reactive (Non-Reactive); HIV AB P24 Non-Reactive (Non-Reactive); HIV P24 AG Non-Reactive (Non-Reactive)
[2019-05-24] MEDS: TRIAMCINOLONE ACET 0.1% OINTMENT 15 GM TUBE TOPICAL SCH (21:29)
[2019-05-24] MEDS: AMOXIC-POT CLAV 875-125MG 1 EACH TAB PO SCH (21:29)
[2019-05-24] MEDS: MAG HYDROX/AL HYDROX/SIMETH 30 ML, diphenhydrAMINE ELIXIR 75 MG, LIDOCAINE VISCOUS 30 ML PO SCH ×6 (21:29→21:36)
--- NOTE | 2019-05-24 21:43 | P.HPIM ---
History of Present Illness H&P Date: 05/24/19 Chief Complaint: Lip rash Patient is a 24-year-old female with a known history of GERD, history of hypothyroidism currently not on any medication was sent to Hospital from Dr. Ray's office due to complaints of swelling of the lip and rash and pain for the past 2-3 days. Patient has been having sore throat about one week ago and was tested positive for strep pneumoniae. Patient was seen at [facility] ER and was given IV Unasyn and steroid course. Patient completed antibiotics for 4 days now. patient started having swelling of the lips and developed rash and also dark scab formation. Patient was also having subjective fevers. 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 Patient also noted to have small bleb on the rt thumb. No complaints of chest pain or shortness of breath. Patient does have nausea. No episodes of vomiting. Patient states that she did have diarrhea 2 days ago. Review of Systems Constitutional: He does have subjective fever and chills. . No generalized weakness or weight loss. Abdomen: Patient denied nausea vomiting and diarrhea and abdominal pain. Cardiovascular: Patient denies any chest pain or short of breath no palpitations. Respiratory: patient denied any cough is from production. No shortness of breath Neurologic: Patient denied any numbness or tingling headache. Musculoskeletal: Patient denies any complaints of joint swelling or deformity. Skin: Rash and swelling of the lips Psychiatric: Negative Endocrine: No heat or cold intolerance. No recent weight gain. Genitourinary: No dysuria or hematuria. All other 14 point ROS negative except the above Past Medical History Past Medical History: GERD/Reflux, Syncope, Thyroid Disorder Additional Past Medical History / Comment(s): Tachycardia, palpitations, hypothyroid but lab tests normal and no longer on medication for this, blood pressure labile-pt to see Dr. Savita montano. History of Any Multi-Drug Resistant Organisms: MRSA Date of last positivie culture/infection: 2009 MDRO Source:: buttock Past Surgical History: No Surgical Hx Reported Additional Past Surgical History / Comment(s): wisdom teeth extractions, TTT Past Anesthesia/Blood Transfusion Reactions: No Reported Reaction Past Psychological History: No Psychological Hx Reported Additional Psychological History / Comment(s): Pt resides with her father and her spouse. She is independent. Smoking Status: Never smoker Past Alcohol Use History: Rare Past Drug Use History: None Reported - Past Family History Mother Family Medical History: Hyperlipidemia, Osteoarthritis (OA) Additional Family Medical History / Comment(s): Anxiety, depression Father Family Medical History: Hypertension Medications and Allergies Home Medications Medication Instructions Recorded Confirmed Type Amoxicillin 875 mg PO Q12HR 05/24/19 05/24/19 History Metoprolol Succinate [Toprol XL] 25 mg PO DAILY@1730 05/24/19 05/24/19 History Allergies Allergy/AdvReac Type Severity Reaction Status Date / Time sulfamethoxazole Allergy Rash/Hives Verified 05/24/19 14:15 [From Bactrim] trimethoprim [From Bactrim] Allergy Rash/Hives Verified 05/24/19 14:15 Physical Exam Vitals: Vital Signs Temp Pulse Resp BP Pulse Ox 05/24/19 13:08 98 F 102 H 16 135/92 99 Intake and Output 05/23/19 05/24/19 05/24/19 22:59 06:59 14:59 Other: Weight 80.286 kg PHYSICAL EXAMINATION: Patient is lying in the bed comfortably, no acute distress, awake alert and oriented.. HEENT: Normocephalic. Neck is supple. Pupils reactive. Nostrils clear. Oral cavity is moist. Ears reveal no drainage. Neck reveals no JVD, carotid bruits, or thyromegaly. CHEST EXAMINATION: Trachea is central. Symmetrical expansion. Lung raymond clear to auscultation and percussion. CARDIAC: Normal S1, S2 with no gallops. No murmurs ABDOMEN: Soft. Bowel sounds normal. No organomegaly. No abdominal bruits. Extremities: reveal no edema. No clubbing or cyanosis Neurologically awake, alert, oriented x3 with well-coordinated movements. No focal deficits noted Skin: Patient does have a rash over the lower lip with scab formation. No purulent drainage. Swelling of both hips and tenderness.. Psychiatric: Coperative. Nonsuicidal Musculoskeletal: No joint swelling or deformity. Normal range of motion. Results CBC & Chem 7: 05/24/19 13:40 05/24/19 13:40 Thrombosis Risk Factor Assmnt - DVT/VTE Prophylaxis DVT/VTE Prophylaxis: Mechanical Prophylaxis ordered - Choose All That Apply Any of the Below Risk Factors Present?: Yes Each Factor Represents 1 point: Obesity (BMI >25) Other Risk Factors: No Other congenital or acquired thrombophilia - If yes, enter type in comment: No Thrombosis Risk Factor Assessment Total Risk Factor Score: 1 Thrombosis Risk Factor Assessment Level: Low Risk Assessment and Plan Assessment: Erythematous rash over the lips with recent history of strep throat currently being treated with Augmentin. Suspected erythema multiforme versus hepatic rash. Rule out mycoplasma mucocutaneous lesions. Recent strep throat infection currently on Augmentin at home History of hypothyroidism. Currently lab tests were normal as per patient. Not on medications. Obesity with BMI 33.4 History of MRSA infection DVT prophylaxis SCDs Plan: Patient will be continued on antibiotics. Symptomatic management for nausea. Patient was started on triamcinolone cream and was given steroid IM as per dermatology. Patient was started on acyclovir and herpes simplex PCR was sent. Also ordered mycoplasma IgM antibodies. Continue to follow closely. IV h ydration since the patient is not tolerating oral diet very well due to pain.. Dermatology and ID is on board. Further recommendations based on the clinical course. Time with Patient: Greater than 30
--- NOTE | 2019-05-24 23:20 | P.CONS ---
History of Present Illness - Reason for Consult Consult date: 05/24/19 shayla sebleon syndrome Requesting physician: Nikki Moran - Chief Complaint oral sores and pain x 1 week - History of Present Illness Patient is a 24-year-old female who started getting sick about a week ago on Wednesday patient symptom has been mostly scratchy throat and symptoms superficial lesion in her mouth patient subsequently was seen at an urgent care and has been diagnosed with a strep throat for the patient was started on amoxicillin however the patient did not have improvement or other worsening the patient developed blisters in her mouth with painful pain which is mostly burning with intensity 70 8 out of 10 and no radiation patient denies difficulty swallowing or difficulty breathing patient currently with no rash or joint swelling he did have some subjective fever but no high-grade fever with the symptom patient was evaluated by the primary care physician the office subsequently has been admitted admitted hospital with concern for 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 Review of Systems Positive point has been mentioned in HPI rest of the systems are negative Past Medical History Past Medical History: GERD/Reflux, Syncope, Thyroid Disorder Additional Past Medical History / Comment(s): Tachycardia, palpitations, hypothyroid but lab tests normal and no longer on medication for this, blood pressure labile-pt to see Dr. Savita montano. History of Any Multi-Drug Resistant Organisms: MRSA Year Discovered:: 2009 MDRO Source:: buttock Past Surgical History: No Surgical Hx Reported Additional Past Surgical History / Comment(s): wisdom teeth extractions, TTT Past Anesthesia/Blood Transfusion Reactions: No Reported Reaction Past Psychological History: No Psychological Hx Reported Additional Psychological History / Comment(s): Pt resides with her father and her spouse. She is independent. Smoking Status: Never smoker Past Alcohol Use History: Rare Past Drug Use History: None Reported - Past Family History Mother Family Medical History: Hyperlipidemia, Osteoarthritis (OA) Additional Family Medical History / Comment(s): Anxiety, depression Father Family Medical History: Hypertension Medications and Allergies Home Medications Medication Instructions Recorded Confirmed Type Amoxicillin 875 mg PO Q12HR 05/24/19 05/24/19 History Metoprolol Succinate [Toprol XL] 25 mg PO DAILY@1730 05/24/19 05/24/19 History Allergies Allergy/AdvReac Type Severity Reaction Status Date / Time sulfamethoxazole Allergy Rash/Hives Verified 05/24/19 14:15 [From Bactrim] trimethoprim [From Bactrim] Allergy Rash/Hives Verified 05/24/19 14:15 Physical Exam Vitals: Vital Signs Temp Pulse Resp BP Pulse Ox 05/24/19 13:08 98 F 102 H 16 135/92 99 Intake and Output 05/23/19 05/24/19 05/24/19 22:59 06:59 14:59 Other: Weight 80.286 kg GENERAL DESCRIPTION: Young female lying in bed, no distress. No tachypnea or accessory muscle of respiration use. HEENT: Shows Pallor , no scleral icterus. Superficial ulceration in oral cavity with significant blistering of the lower lip nECK: Trachea central, no thyromegaly. LUNGS: Unlabored breathing. Clear to auscultation anteriorly. No wheeze or crackle. HEART: S1, S2, regular rate and rhythm. ABDOMEN: Soft, no tenderness , guarding or rigidity EXTREMITIES: No edema of feet. SKIN: No rash, no masses palpable. NEUROLOGICAL: The patient is awake, alert, oriented x3, mood and affect normal. Results CBC & Chem 7: 05/24/19 13:40 05/24/19 13:40 Labs: Abnormal Lab Results - Last 24 Hours (Table) 05/24/19 Range/Units 13:40 BUN 18 H (7-17) mg/dL ALT 38 H (4-34) U/L C-Reactive Protein 23.2 H (<10.0) mg/L Total Protein 8.4 H (6.3-8.2) g/dL Assessment and Plan Assessment: patient with significant superficial ulceration of the mouth and blistering of the lower lip concern is likely for acute herpes stomatitis clinically doubt Willoughby-Carlos syndrome as the patient symptoms started before she took any antibiotics and currently do not have any skin lesions (1) Oral ulcer Current Visit: Yes Status: Acute Code(s): K12.1 - OTHER FORMS OF STOMATITIS SNOMED Code(s): 51397101 (2) Stomatitis Current Visit: Yes Status: Acute Code(s): K12.1 - OTHER FORMS OF STOMATITIS SNOMED Code(s): 30357220 Plan: 1-swab was obtained from the lesion for HSV DNA by PCR 2-we will obtain HSV 1 and 2 IgG and IgM also check HIV test CMV and EBV serology 3- we will empirically start the patient on acyclovir-10 mg/kg every 8 hour 4-IV fluid We will follow on clinical condition and cultures to further adjust medication if needed Thank you for this consultation we will follow the patient along with you Time with Patient: Greater than 30
[2019-05-25] MEDS: SODIUM CHLORIDE 0.9% 1,000 ML IV SCH ×2 (02:08→17:29)
[2019-05-25] MEDS: AMOXIC-POT CLAV 875-125MG 1 EACH TAB PO SCH ×2 (09:06→21:22)
[2019-05-25] MEDS: MAG HYDROX/AL HYDROX/SIMETH 30 ML, diphenhydrAMINE ELIXIR 75 MG, LIDOCAINE VISCOUS 30 ML PO SCH ×9 (09:06→21:22)
[2019-05-25] MEDS: PANTOPRAZOLE 40 MG TABLET PO SCH (09:06)
[2019-05-25] MEDS: TRIAMCINOLONE ACET 0.1% OINTMENT 15 GM TUBE TOPICAL SCH ×2 (09:07→21:23)
[2019-05-25] MEDS: ACYCLOVIR SODIUM 800 MG in SODIUM CHLORIDE 0.9% 250 ML IVPB SCH ×3 (09:07→23:11)
--- NOTE | 2019-05-25 15:17 | P.PN ---
Subjective Progress Note Date: 05/25/19 Principal diagnosis: Patient is a 24-year-old female with a known history of GERD, history of hypothyroidism currently not on any medication was sent to Hospital from Dr. Cotter's office due to complaints of swelling of the lip and rash and pain for the past 2-3 days. Patient has been having sore throat about one week ago and was tested positive for strep pneumoniae. Patient was seen at [facility] and was given IV Unasyn and steroid course. Patient completed antibiotics for 4 days now. patient started having swelling of the lips and developed rash and also dark scab formation. Patient was also having subjective fevers. 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 Patient also noted to have small bleb on the rt thumb. No complaints of chest pain or shortness of breath. Patient does have nausea. No episodes of vomiting. Patient states that she did have diarrhea 2 days ago. 05/25/2019 Patient is lying in bed and appears to be in no acute distress with no acute overnight issues. Patient states that her mouth feels much better inside and the pain and discomfort of the lower lip is starting to get better. She was able to eat and tolerate. Currently patient denies any chest pain, shortness of breath, or palpitations. Patient is afebrile. Patient denies any nausea or vomiting and has tolerated diet. Patient states that she did have a bowel movement today and has been loose for the last few days. Dermatology and infectious disease are following. Objective - Vital Signs Vital signs: Vital Signs Temp 98 F 05/25/19 05:00 Pulse 78 05/25/19 05:00 Resp 16 05/25/19 05:00 BP 111/62 05/25/19 05:00 Pulse Ox 98 05/25/19 05:00 Intake & Output 05/24/19 05/25/19 05/25/19 18:59 06:59 18:59 Intake Total 1965 Balance 1965 Weight 80.286 kg Intake: Intake, IV Titration 1375 Amount Acyclovir Sodium 800 mg 500 In Sodium Chloride 0.9% 250 ml @ 266 mls/hr IVPB Q8HR TONY Rx#:[id number] Sodium Chloride 0.9% 1, 875 000 ml @ 75 mls/hr IV . [id number] TONY Rx#:[id number] Oral 590 Other: # Voids 2 - Exam Patient is lying in the bed comfortably, no acute distress, awake alert and oriented.. HEENT: Normocephalic. Neck is supple. Pupils reactive. Nostrils clear. Oral cavity is moist. Ears reveal no drainage. Neck reveals no JVD, carotid bruits, or thyromegaly. CHEST EXAMINATION: Trachea is central. Symmetrical expansion. Lung raymond clear to auscultation and percussion. CARDIAC: Normal S1, S2 with no gallops. No murmurs ABDOMEN: Soft. Bowel sounds normal. No organomegaly. No abdominal bruits. Extremities: reveal no edema. No clubbing or cyanosis Neurologically awake, alert, oriented x3 with well-coordinated movements. No focal deficits noted Skin: Patient does have a rash over the lower lip with scab formation. No purulent drainage. Swelling of both lips and tenderness.. Psychiatric: Cooperative. Non-suicidal Musculoskeletal: No joint swelling or deformity. Normal range of motion. - Labs CBC & Chem 7: 05/24/19 13:40 05/24/19 13:40 Labs: Abnormal Lab Results - Last 24 Hours (Table) 05/24/19 05/24/19 05/25/19 Range/Units 13:40 13:40 07:20 ESR 30 H (0-20) mm/hr BUN 18 H (7-17) mg/dL ALT 38 H (4-34) U/L C-Reactive Protein 23.2 H 16.9 H (<10.0) mg/L Total Protein 8.4 H (6.3-8.2) g/dL Assessment and Plan Assessment: Erythematous rash over the lips with recent history of strep throat currently being treated with Augmentin. Suspected erythema multiforme versus hepatic rash. Rule out mycoplasma mucocutaneous lesions. Recent strep throat infection currently on Augmentin at home History of hypothyroidism. Currently lab tests were normal as per patient. Not on medications. Obesity with BMI 33.4 History of MRSA infection DVT prophylaxis SCDs Plan: Patient will be continued on antibiotics. Symptomatic management for nausea. Patient denies any nausea at this time and has been tolerating diet. CRP is trending down and is 16.9 today. Patient has been having some diarrhea and C. diff testing was done and is negative. Patient was started on triamcinolone cream and was given steroid IM as per dermatology. Patient was started on acyclovir and herpes simplex PCR was sent. Patient will continue on IV acyclovir at this time. HSV IgM is pending, IgG was negative. Also ordered mycoplasma IgM antibodies. Continue to follow closely. Chest x-ray done yesterday shows a normal chest x-ray and lungs are clear. Dermatology and ID is on board. Further recommendations based on the clinical course. Possible discharge in 24-48 hours.
--- NOTE | 2019-05-25 16:54 | PN ---
PROGRESS NOTE DATE OF SERVICE: 05/25/2019 REASON FOR FOLLOWUP: Oral ulcer with question of herpes stomatitis. INTERVAL HISTORY: The patient is currently afebrile. The patient is breathing comfortably. The patient's oral ulcer is slightly improved. Denies having difficulty swallowing or difficulty breathing. Denies having any chest pain or shortness of breath or cough. No nausea, vomiting or abdominal pain or diarrhea. PHYSICAL EXAMINATION: On examination, her blood pressure is 134/77 with a pulse of 99, temperature 98.4. She is 99% on room air. General description is a young female up in the bed in no distress. HEENT EXAMINATION: The oral ulcer has slightly decreased in intensity. No new sores were noted. LUNGS: Unlabored breathing. Clear to auscultation anteriorly. HEART: S1, S2. Regular rate and rhythm. ABDOMEN: Soft. No tenderness. LABS: Hemoglobin is 13.3, white count 10.5. BUN of 18, creatinine 0.68. HSV IgG antibodies negative. IgM is currently pending. The PCR is currently pending as well. DIAGNOSTIC IMPRESSION AND PLAN: Patient with an oral ulcer involving the lower lip. Concern is likely for herpes stomatitis. The patient is covered with IV acyclovir and seems to have clinical improvement. Waiting for the confirmatory test. Continue with supportive care. MMODL / IJN: [id number] /
[2019-05-25] MEDS: METOPROLOL SUCCINATE (ER) 25 MG TAB.ER.24H PO SCH (17:27)
[2019-05-25 18:45] LABS: EBV-EA (IgG) <0.2 AI; EBV-EBNA(IgG) >8.0 AI; EBV-VCA (IgG) 4.1 AI; EBV-VCA (IgM) 0.3 AI
[2019-05-25 21:58] VITALS: RESP 16
[2019-05-26] MEDS: SODIUM CHLORIDE 0.9% 1,000 ML IV SCH ×2 (04:47→17:01)
[2019-05-26 05:15] LABS: Mycoplasma IgG Antibody (EIA) 3.59 INDEX (<=0.90); Mycoplasma IgM Antibody 1.94 INDEX (<=0.90)
[2019-05-26] MEDS: ONDANSETRON 4 MG/2 ML VIAL IVP PRN ×2 (05:24→12:29)
[2019-05-26] MEDS: ACYCLOVIR SODIUM 800 MG in SODIUM CHLORIDE 0.9% 250 ML IVPB SCH ×3 (08:58→23:59)
[2019-05-26] MEDS: AMOXIC-POT CLAV 875-125MG 1 EACH TAB PO SCH ×2 (08:59→21:12)
[2019-05-26] MEDS: PANTOPRAZOLE 40 MG TABLET PO SCH (08:59)
[2019-05-26] MEDS: TRIAMCINOLONE ACET 0.1% OINTMENT 15 GM TUBE TOPICAL SCH ×2 (09:01→21:12)
[2019-05-26] MEDS: MAG HYDROX/AL HYDROX/SIMETH 30 ML, diphenhydrAMINE ELIXIR 75 MG, LIDOCAINE VISCOUS 30 ML PO SCH ×9 (09:04→22:32)
[2019-05-26 09:56] LABS: Basophils # (A) 0.1 k/uL (0-0.2); Basophils % (A) 1 %; Eosinophils # (A) 0.1 k/uL (0-0.7); Eosinophils % (A) 0 %; HCT 37.2 % (34.0-46.0); HGB 12.8 gm/dL (11.4-16.0); Lymphocytes # (A) 2.3 k/uL (1.0-4.8); Lymphocytes % (A) 20 %; MCH 30.7 pg (25.0-35.0); MCHC 34.5 g/dL (31.0-37.0); Mean Platelet Volume 7.2; Monocytes # (A) 0.8 k/uL (0-1.0); Monocytes % (A) 7 %; Neutrophils % (A) 70 %; Platelet Count 371 k/uL (150-450); RBC 4.18 m/uL (3.80-5.40); RDW 11.5 % (11.5-15.5); WBC 11.4 k/uL (3.8-10.6)
[2019-05-26 10:10] LABS: African American GFR (CKD) >90 (>60 ml/min/1.73 sqM); Anion Gap 10 mmol/L; Blood Urea Nitrogen 10 mg/dL (7-17); C Reactive Protein 14.6 mg/L (<10.0); Calcium 9.4 mg/dL (8.4-10.2); Carbon Dioxide 21 mmol/L (22-30); Chloride 111 mmol/L (98-107); Glucose 98 mg/dL (74-99); Non-African American GFR(CKD) 86 (>60 ml/min/1.73 sqM); Potassium 4.4 mmol/L (3.5-5.1); Sodium 142 mmol/L (137-145)
[2019-05-26 12:25] LABS: Erythrocyte Sedimentation Rate 23 mm/hr (0-20)
[2019-05-26] MEDS ORDERED: METOCLOPRAMIDE 5 MG/ML 2 ML VIAL IVP PRN (13:18)
--- NOTE | 2019-05-26 13:41 | PN ---
PROGRESS NOTE DATE OF SERVICE: 05/26/2019 REASON FOR FOLLOWUP: Acute herpes stomatitis. INTERVAL HISTORY: The patient is currently afebrile. is complaining of slight nausea today. The oral sores have decreased in intensity and no new sores has been noticed. Denies any difficulty swallowing. No nausea or vomiting. No chest pain, shortness of breath or cough. No abdominal pain. No diarrhea. PHYSICAL EXAMINATION: Blood pressure 128/72 with a pulse of 86, temperature 98.1. She is 96% on room air. General description is a young female, up in the bed in no distress. HEENT EXAMINATION: Oral sores had decreased in intensity. No new sores has been noticed. LUNGS: Unlabored breathing, clear to auscultation anteriorly. HEART: S1, S2. Regular rate and rhythm. ABDOMEN: Soft, no tenderness. LABS: Hemoglobin is 12.8, white count of 11.4, BUN of 10, with 0.94. The HSV DNA PCR of the oral swab came back positive. HSV 1 and 2 IgM came back positive. IgG was negative. 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 She has clinically responded well with IV acyclovir that will be switched to oral Valtrex 1 gram every 8 hours for another week and close outpatient followup. Questions and concerns were answered. MMGENNYL / MURALIN: [id number] /
--- NOTE | 2019-05-26 15:33 | P.PN ---
Subjective Progress Note Date: 05/26/19 Principal diagnosis: Patient is a 24-year-old female with a known history of GERD, history of hypothyroidism currently not on any medication was sent to Hospital from Dr. Cotter's office due to complaints of swelling of the lip and rash and pain for the past 2-3 days. Patient has been having sore throat about one week ago and was tested positive for strep pneumoniae. Patient was seen at [facility] and was given IV Unasyn and steroid course. Patient completed antibiotics for 4 days now. patient started having swelling of the lips and developed rash and also dark scab formation. Patient was also having subjective fevers. 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 Patient also noted to have small bleb on the rt thumb. No complaints of chest pain or shortness of breath. Patient does have nausea. No episodes of vomiting. Patient states that she did have diarrhea 2 days ago. 05/25/2019 Patient is lying in bed and appears to be in no acute distress with no acute overnight issues. Patient states that her mouth feels much better inside and the pain and discomfort of the lower lip is starting to get better. She was able to eat and tolerate. Currently patient denies any chest pain, shortness of breath, or palpitations. Patient is afebrile. Patient denies any nausea or vomiting and has tolerated diet. Patient states that she did have a bowel movement today and has been loose for the last few days. Dermatology and infectious disease are following. 05/26/2019 Patient is lying in bed sleeping but easily arousable. Patient continues to have nausea with a few episodes of vomiting and upset stomach. Patient is not really tolerating anything solid at this time. Patient states that Zofran somewhat helps. Reglan will be added as needed. Patient currently remains on acyclovir and oral Augmentin and will continue at this time. 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 Infectious disease is following and will be following in the outpatient setting as well. ESR trending down and is currently 23. Will continue to monitor. Patient states that her mouth lesions have slightly improved but is still continuing to have some discomfort. Nystatin swishes will be added. Objective - Vital Signs Vital signs: Vital Signs Temp 98.1 F 05/26/19 04:40 Pulse 104 H 05/26/19 04:40 Resp 16 05/26/19 04:40 BP 128/72 05/26/19 04:40 Pulse Ox 96 05/26/19 04:40 Intake & Output 05/25/19 05/26/19 05/26/19 18:59 06:59 18:59 Intake Total 1100 1490 775 Balance 1100 1490 775 Intake: Intake, IV Titration 1100 900 775 Amount Acyclovir Sodium 800 mg 500 250 In Sodium Chloride 0.9% 250 ml @ 266 mls/hr IVPB Q8HR TON[facility] Rx#:[id number] Sodium Chloride 0.9% 1, 600 900 525 000 ml @ 75 mls/hr IV . [id number] TONY Rx#:[id number] Oral 590 Other: # Voids 4 3 1 # Bowel Movements 1 - Exam Patient is lying in the bed comfortably, no acute distress, asleep, but easily arousable, alert and oriented.. HEENT: Normocephalic. Neck is supple. Pupils reactive. Nostrils clear. Oral cavity is moist. Ears reveal no drainage. Neck reveals no JVD, carotid bruits, or thyromegaly. CHEST EXAMINATION: Trachea is central. Symmetrical expansion. Lung raymond clear to auscultation and percussion. CARDIAC: Normal S1, S2 with no gallops. No murmurs ABDOMEN: Soft. Bowel sounds normal. No organomegaly. No abdominal bruits. Extremities: reveal no edema. No clubbing or cyanosis Neurologically awake, alert, oriented x3 with well-coordinated movements. No focal deficits noted Skin: Patient does have a rash over the lower lip with scab formation. No purulent drainage. Swelling of both lips and tenderness.. Lower lip scab has fallen off with some slight improvement in the swelling of both lips. Psychiatric: Cooperative. Non-suicidal Musculoskeletal: No joint swelling or deformity. Normal range of motion. - Labs CBC & Chem 7: 05/26/19 09:25 05/26/19 09:25 Labs: Abnormal Lab Results - Last 24 Hours (Table) 05/24/19 05/24/19 05/24/19 Range/Units 13:40 13:40 15:30 WBC (3.8-10.6) k/uL Neutrophils # (1.3-7.7) k/uL ESR (0-20) mm/hr Chloride (98-107) mmol/L Carbon Dioxide (22-30) mmol/L C-Reactive Protein (<10.0) mg/L EBV Capsid Ag IgG Intrp (NEGATIVE) EBV Nuc Ag IgG Interp (NEGATIVE) HSV I&II IgM Ab 1.52 H (<=0.90) INDEX HSV I DNA PCR DETECTED H (Not detected) Mycoplasma pneumon IgG 3.59 H (<=0.90) INDEX Mycoplasma pneumon IgM 1.94 H (<=0.90) INDEX 05/25/19 05/26/19 05/26/19 Range/Units 07:20 09:25 09:25 WBC 11.4 H (3.8-10.6) k/uL Neutrophils # 8.0 H (1.3-7.7) k/uL ESR 23 H (0-20) mm/hr Chloride 111 H (98-107) mmol/L Carbon Dioxide 21 L (22-30) mmol/L C-Reactive Protein 14.6 H (<10.0) mg/L EBV Capsid Ag IgG Intrp POSITIVE H (NEGATIVE) EBV Nuc Ag IgG Interp POSITIVE H (NEGATIVE) HSV I&II IgM Ab (<=0.90) INDEX HSV I DNA PCR (Not detected) Mycoplasma pneumon IgG (<=0.90) INDEX Mycoplasma pneumon IgM (<=0.90) INDEX Microbiology - Last 24 Hours (Table) 05/24/19 13:40 Blood Culture - Preliminary Blood No Growth after 24 hours Assessment and Plan Assessment: Erythematous rash over the lips with recent history of strep throat currently being treated with Augmentin. Suspected erythema multiforme versus hepatic rash. Rule out mycoplasma mucocutaneous lesions. Recent strep throat infection currently on Augmentin at home History of hypothyroidism. Currently lab tests were normal as per patient. Not on medications. Obesity with BMI 33.4 History of MRSA infection DVT prophylaxis SCDs Plan: Patient will be continued on antibiotics. Symptomatic management for nausea. Reglan will be added as needed. Patient continues to have some nausea with vomiting and upset stomach. CRP is trending down and is 14.6 today. 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 Patient will continue on acyclovir and will be transitioned oral upon discharge. Patient will continue on IV acyclovir at this time. Continue to follow closely. Dermatology and ID is on board. Further recommendations based on the clinical course. Possible discharge in 24-48 hours.
[2019-05-26] MEDS: NYSTATIN 100,000 UNIT/ML SUSP 500,000 UNIT/5 ML CUP PO SCH ×3 (16:51→22:32)
[2019-05-26] MEDS: METOPROLOL SUCCINATE (ER) 25 MG TAB.ER.24H PO SCH (16:53)
[2019-05-27] MEDS: PANTOPRAZOLE 40 MG TABLET PO SCH (10:02)
[2019-05-27] MEDS: TRIAMCINOLONE ACET 0.1% OINTMENT 15 GM TUBE TOPICAL SCH (10:08)
[2019-05-27] MEDS: AMOXIC-POT CLAV 875-125MG 1 EACH TAB PO SCH (10:08)
[2019-05-27] MEDS: MAG HYDROX/AL HYDROX/SIMETH 30 ML, diphenhydrAMINE ELIXIR 75 MG, LIDOCAINE VISCOUS 30 ML PO SCH ×3 (10:08)
[2019-05-27] MEDS: NYSTATIN 100,000 UNIT/ML SUSP 500,000 UNIT/5 ML CUP PO SCH (10:09)
[2019-05-27] MEDS: ACYCLOVIR SODIUM 800 MG in SODIUM CHLORIDE 0.9% 250 ML IVPB SCH (10:09)
[2019-05-27] MEDS: SODIUM CHLORIDE 0.9% 1,000 ML IV SCH (10:13)
[2019-05-27 10:39] VITALS: BP 125/87; PULSE 105; TEMP 98
== END 2019-05-27 15:32 | disposition home or self-care (01) | DRG 596 ==
LOC: 5NMEDONC 12:32
PROVIDERS: ADMIT Internal Medicine; ATTEND Internal Medicine
PROC: 05HD33Z Insertion of Infusion Device into Right Cephalic Vein, Percutaneous Approach (ICD-10-PCS; principal; 2019-05-24 11:45)
DX: L51.9 Erythema multiforme, unspecified (principal); B00.2 Herpesviral gingivostomatitis and pharyngotonsillitis; E03.9 Hypothyroidism, unspecified; E66.9 Obesity, unspecified; J02.0 Streptococcal pharyngitis; K21.9 Gastro-esophageal reflux disease without esophagitis; K30 Functional dyspepsia; R11.2 Nausea with vomiting, unspecified; Z68.33 Body mass index [BMI] 33.0-33.9, adult; Z86.14 Personal history of Methicillin resistant Staphylococcus aureus infection; Z79.899 Other long term (current) drug therapy; Z81.8 Family history of other mental and behavioral disorders; Z82.49 Family history of ischemic heart disease and other diseases of the circulatory system; Z82.61 Family history of arthritis
CPT/HCPCS: 36410; 71046; 76937; 80048; 80053; 85025; 85652; 86140; 86644; 86645; 86663; 86664; 86665; 86694; 86695; 86696; 86738; 87040; 87324; 87390; 87529

== ENCOUNTER → 2020-01-01 | Outpatient (CLI) | payer BC | END | disposition home or self-care (01) | LOC: LABWHC1 12:56 | PROVIDERS: ATTEND Internal Medicine | DX: Z20.828 Contact with and (suspected) exposure to other viral communicable diseases (principal) | CPT/HCPCS: U0003; C9803 ==

== ENCOUNTER → 2020-01-17 | Outpatient (CLI) | payer BC | END | disposition home or self-care (01) | LOC: LABWHC1 14:33 | PROVIDERS: ATTEND Internal Medicine | DX: Z20.828 Contact with and (suspected) exposure to other viral communicable diseases (principal) | CPT/HCPCS: 36415; 86769 ==

== ENCOUNTER → 2021-10-02 | Outpatient (CLI) | payer BC ==
[~2021-10-02] MED LIST: BEBTELOVIMAB (EUA) 175 MG/2 ML VIAL IV ONE; SODIUM CHLORIDE 0.9% 500 ML 500 ML in EMPTY BAG 1 BAG IV PRN
[2021-10-02 13:18] VITALS: BP 121/86; PULSE 135; RESP 18; TEMP 97.4
== END ==
LOC: PROCWHC3 12:47
PROVIDERS: ATTEND Obstetrics & Gynecology
DX: O98.519 Other viral diseases complicating pregnancy, unspecified trimester (principal); U07.1 COVID-19; Z28.310 Unvaccinated for COVID-19; Z3A.00 Weeks of gestation of pregnancy not specified; Z88.2 Allergy status to sulfonamides
CPT/HCPCS: Q0222; M0222

== ENCOUNTER 2021-12-26 05:55 | Inpatient (IN) | payer BC ==
[2021-12-26] MEDS ORDERED: METHYLERGONOVINE 0.2 MG/ML 1 ML AMP IM PRN (06:12)
[2021-12-26] MEDS ORDERED: OXYTOCIN 10 UNIT/ML 1 ML VIAL IM PRN (06:12)
[2021-12-26] MEDS ORDERED: LIDOCAINE 0.5% (PF) 5 MG/ML (50 ML SDV) SQ PRN (06:12)
[2021-12-26] MEDS ORDERED: CARBOPROST TROMETHAMINE 250 MCG/ML 1 ML AMP IM PRN (06:12)
[2021-12-26] MEDS ORDERED: TERBUTALINE 1 MG/ML VIAL SQ PRN (06:12)
[2021-12-26] MEDS ORDERED: OXYTOCIN 30 UNITS/500 ML NS 30 UNIT in SALINE 1 500ML.BAG IV SCH ×2 (06:15→20:15)
[2021-12-26] MEDS: LACTATED RINGERS 1,000 ML IV SCH ×2 (06:18→12:38)
[2021-12-26 06:50] LABS: Basophils # (A) 0.1 k/uL (0-0.2); Basophils % (A) 1 %; Eosinophils # (A) 0.1 k/uL (0-0.7); Eosinophils % (A) 1 %; HCT 38.8 % (34.0-46.0); HGB 12.7 gm/dL (11.4-16.0); Lymphocytes # (A) 3.3 k/uL (1.0-4.8); Lymphocytes % (A) 25 %; MCH 30.9 pg (25.0-35.0); MCHC 32.7 g/dL (31.0-37.0); MCV 94.5 fL (80.0-100.0); Mean Platelet Volume 8.5; Monocytes # (A) 0.8 k/uL (0-1.0); Monocytes % (A) 6 %; Neutrophils # (A) 8.5 k/uL (1.3-7.7); Neutrophils % (A) 66 %; Platelet Count 327 k/uL (150-450); RBC 4.11 m/uL (3.80-5.40); RDW 13.1 % (11.5-15.5); WBC 13.1 k/uL (3.8-10.6)
[2021-12-26] MEDS ORDERED: BUTORPHANOL 1 MG/ML 1 ML VIAL IV PRN (07:10)
--- NOTE | 2021-12-26 07:32 | P.HPOB ---
History of Present Illness H&P Date: 12/26/21 Chief Complaint: Induction of labor 26-year-old presents at 39 weeks for induction of labor. Her cervix is 3 centers dilated, 70% effaced, -1 station. She is vj irregularly. heart tones 135 with moderate variability and reactive. Review of Systems All systems: negative Constitutional: Denies chills, Denies fever Eyes: denies blurred vision, denies pain Ears, nose, mouth and throat: Denies headache, Denies sore throat Cardiovascular: Denies chest pain, Denies shortness of breath Respiratory: Denies cough Gastrointestinal: Denies abdominal pain, Denies diarrhea, Denies nausea, Denies vomiting Genitourinary: Denies dysuria, Denies hematuria Musculoskeletal: Denies myalgias Integumentary: Denies pruritus, Denies rash Neurological: Denies numbness, Denies weakness Psychiatric: Denies anxiety, Denies depression Endocrine: Denies fatigue, Denies weight change Past Medical History Past Medical History: GERD/Reflux, Syncope, Thyroid Disorder Additional Past Medical History / Comment(s): Tachycardia, palpitations, hypothyroid but lab tests normal and no longer on medication for this History of Any Multi-Drug Resistant Organisms: MRSA Date of last positivie culture/infection: 2009 MDRO Source:: buttock Past Surgical History: No Surgical Hx Reported Additional Past Surgical History / Comment(s): wisdom teeth extractions, TTT Past Anesthesia/Blood Transfusion Reactions: No Reported Reaction Past Psychological History: No Psychological Hx Reported Additional Psychological History / Comment(s): Pt resides with her father and her spouse. She is independent. Smoking Status: Never smoker Past Alcohol Use History: Rare Past Drug Use History: None Reported - Past Family History Mother Family Medical History: Hyperlipidemia, Osteoarthritis (OA) Additional Family Medical History / Comment(s): Anxiety, depression Father Family Medical History: Hypertension Medications and Allergies Home Medications Medication Instructions Recorded Confirmed Type Vit No.179/Iron/Folic 1 each PO DAILY 12/26/21 12/26/21 History [ Tablet] diphenhydrAMINE [Benadryl] 25 mg PO DAILY 12/26/21 12/26/21 History Allergies Allergy/AdvReac Type Severity Reaction Status Date / Time sulfamethoxazole Allergy Rash/Hives Verified 12/26/21 06:09 [From Bactrim] trimethoprim [From Bactrim] Allergy Rash/Hives Verified 12/26/21 06:09 Exam Osteopathic Statement: *. No significant issues noted on an osteopathic structu ral exam other than those noted in the History and Physical/Consult. Vital Signs Temp Pulse Resp BP Pulse Ox 12/26/21 06:42 96.0 F L 93 16 142/82 100 Intake and Output 12/25/21 12/26/21 12/26/21 22:59 06:59 14:59 Other: Weight 89.811 kg Heart: Regular rate and rhythm Lungs: Clear to auscultation bilaterally Abdomen: Soft, nontender Extremities: Negative Homans sign Results Result Diagrams: 12/26/21 06:05 Abnormal Lab Results - Last 24 Hours (Table) 12/26/21 Range/Units 06:05 WBC 13.1 H (3.8-10.6) k/uL Neutrophils # 8.5 H (1.3-7.7) k/uL Assessment and Plan (1) Encounter for induction of labor Current Visit: Yes Status: Acute Code(s): Z34.90 - ENCNTR FOR SUPRVSN OF NORMAL , UNSP, UNSP TRIMESTER SNOMED Code(s): 061020993 Plan: 1. Induction of labor with amniotomy and Pitocin 2. Anticipate normal vaginal delivery
[2021-12-26] MEDS ORDERED: BUPIVACAINE (PF) 0.25% 30 ML VIAL ONE (13:00)
[2021-12-26] MEDS ORDERED: fentaNYL (PF) 50 MCG/ML 5 ML AMP ONE (13:00)
[2021-12-26] MEDS ORDERED: SODIUM CHLORIDE 0.9% 100 ML BAG ONE (13:00)
[2021-12-26] MEDS ORDERED: ROPIVACAINE 100 MG, fentaNYL (PF). 200 MCG in SODIUM CHLORIDE 0.9% 76 ML EPIDURAL ONE (13:37)
[2021-12-26] MEDS ORDERED: diphenhydrAMINE 25 MG CAP PO PRN (20:15)
[2021-12-26] MEDS ORDERED: IBUPROFEN 600 MG TAB PO PRN (20:15)
[2021-12-26] MEDS ORDERED: SIMETHICONE 80 MG CHEWABLE PO PRN (20:15)
[2021-12-26] MEDS ORDERED: diphenhydrAMINE 50 MG CAP PO PRN (20:15)
[2021-12-26] MEDS ORDERED: LANOLIN CREAM 5 GM TUBE TOPICAL PRN (20:15)
[2021-12-26] MEDS ORDERED: diphenhydrAMINE 50 MG/ML 1 ML VIAL IVP PRN ×2 (20:15)
[2021-12-26] MEDS ORDERED: HYDROCORTISONE 2.5% RECTAL CREAM 30 GM TUBE RECTAL PRN (20:15)
[2021-12-26] MEDS ORDERED: ACETAMINOPHEN TAB 325 MG TAB PO PRN (20:15)
[2021-12-26] MEDS ORDERED: ZOLPIDEM 5 MG TAB PO PRN (20:15)
[2021-12-26] MEDS ORDERED: BENZOCAINE/MENTHOL SPRAY 1 GM/SPRAY AEROSOL TOPICAL PRN (20:15)
[2021-12-27] MEDS: LACTATED RINGERS 1,000 ML IV SCH ×2 (00:25→09:27)
[2021-12-27 05:59] LABS: Basophils % (A) 0 %; Eosinophils # (A) 0.1 k/uL (0-0.7); Eosinophils % (A) 1 %; HCT 31.1 % (34.0-46.0); HGB 10.5 gm/dL (11.4-16.0); Lymphocytes # (A) 2.3 k/uL (1.0-4.8); Lymphocytes % (A) 14 %; MCH 31.6 pg (25.0-35.0); MCHC 33.6 g/dL (31.0-37.0); Monocytes # (A) 0.9 k/uL (0-1.0); Monocytes % (A) 6 %; Neutrophils # (A) 13.6 k/uL (1.3-7.7); Neutrophils % (A) 80 %; Platelet Count 251 k/uL (150-450); RBC 3.31 m/uL (3.80-5.40); WBC 17.1 k/uL (3.8-10.6)
--- NOTE | 2021-12-27 08:33 | P.PROBDLV ---
Vaginal Delivery Note - . Vaginal Delivery Note: 26-year-old presents at 39 weeks for induction of labor. Her cervix is 3 cm dilated, 70% effaced, -1 station. She is vj irregularly. heart tones 135 with moderate variability and reactive. Pitocin was started. Amniotomy performed at 7:08 AM clear fluid noted. She was uncomfortable she did get an epidural. Her cervix was completely dilated at 191. She pushed, delivered a viable male over intact perineum under epidural anesthesia at 1953. Head delivered OA, nuchal cord 1 easily reduced, anterior shoulder delivered gentle downward guidance called by posterior shoulder and rest of body. Nose and mouth bulb suctioned, cord clamped and cut, placed on mother's abdomen. Apgars 9, 9, weight 7 lbs. 13 oz. Placenta delivered spontaneously, intact with three-vessel cord at 1955. Vagina, cervix, perineum inspected. Bilateral labial lacerations were repaired with 3-0 Vicryl. Estimated blood loss 150 mL. Mother and baby in stable condition.
--- NOTE | 2021-12-27 08:39 | P.DS ---
Providers Date of admission: 12/26/21 05:55 Expected date of discharge: 12/27/21 Attending physician: Ammy Sunshine Primary care physician: Stated None - Discharge Diagnosis(es) (1) Encounter for induction of labor Current Visit: Yes Status: Resolved (2) Normal vaginal delivery Current Visit: Yes Status: Acute Hospital Course: Patient presented for induction of labor. She underwent normal vaginal delivery. course was uncomplicated. She'll be discharged home day #1 in stable condition to follow-up with me in 6 weeks. Plan - Discharge Summary New Discharge Prescriptions: New Ibuprofen [Motrin] 600 mg PO Q6HR PRN #40 tab PRN Reason: Mild Pain (Scale 1 To 3) No Action Vit No.179/Iron/Folic [ Tablet] 1 each PO DAILY diphenhydrAMINE [Benadryl] 25 mg PO DAILY Discharge Medication List Vit No.179/Iron/Folic [ Tablet] 1 each PO DAILY 12/26/21 [History] diphenhydrAMINE [Benadryl] 25 mg PO DAILY 12/26/21 [History] Ibuprofen [Motrin] 600 mg PO Q6HR PRN #40 tab 12/27/21 [Rx] Follow up Appointment(s)/Referral(s): Ammy Sunshine DO [Doctor of Osteopathic Medicine] - 02/06/22 3:45 pm Discharge Disposition: HOME SELF-CARE
[2021-12-27] MEDS: SENNOSIDES-DOCUSATE SODIUM 1 EACH TAB PO SCH ×3 (09:27→21:50)
[2021-12-28] MEDS: SENNOSIDES-DOCUSATE SODIUM 1 EACH TAB PO SCH (08:43)
[2021-12-28 09:37] VITALS: BP 117/79; PULSE 90; RESP 16; TEMP 98.3
== END 2021-12-28 15:20 | disposition home or self-care (01) | DRG 807 ==
LOC: 4FBP 05:55
PROVIDERS: ADMIT Obstetrics & Gynecology; ATTEND Obstetrics & Gynecology
PROC: 3E0R3NZ Introduction of Analgesics, Hypnotics, Sedatives into Spinal Canal, Percutaneous Approach (ICD-10-PCS; principal; 2021-12-26)
PROC: 0HQ9XZZ Repair Perineum Skin, External Approach (ICD-10-PCS; principal; 2021-12-26)
PROC: 10907ZC Drainage of Amniotic Fluid, Therapeutic from Products of Conception, Via Natural or Artificial Opening (ICD-10-PCS; principal; 2021-12-26)
PROC: 00HU33Z Insertion of Infusion Device into Spinal Canal, Percutaneous Approach (ICD-10-PCS; principal; 2021-12-26)
PROC: 10E0XZZ Delivery of Products of Conception, External Approach (ICD-10-PCS; principal; 2021-12-26)
PROC: 3E033VJ Introduction of Other Hormone into Peripheral Vein, Percutaneous Approach (ICD-10-PCS; principal; 2021-12-26)
DX: O69.81X0 Labor and delivery complicated by cord around neck, without compression, not applicable or unspecified (principal); O70.0 First degree perineal laceration during delivery; O99.62 Diseases of the digestive system complicating childbirth; K21.9 Gastro-esophageal reflux disease without esophagitis; Z86.39 Personal history of other endocrine, nutritional and metabolic disease; Z88.2 Allergy status to sulfonamides; Z28.310 Unvaccinated for COVID-19; Z86.79 Personal history of other diseases of the circulatory system; Z3A.39 39 weeks gestation of pregnancy; Z37.0 Single live birth
CPT/HCPCS: 85025; 86850; 86900; 86901

== ENCOUNTER 2023-07-04 18:29 | Emergency (ER) | payer BC ==
--- NOTE | 2023-07-04 18:48 | ED ---
Nausea/Vomiting/Diarrhea HPI - General Source: patient, RN notes reviewed Mode of arrival: ambulatory Limitations: no limitations <Sharon Craft - Last Filed: 07/04/23 18:47> <Khushboo Banks - Last Filed: 07/05/23 01:05> - General Stated complaint: N/V/D 16 weeks Time Seen by Provider: 07/04/23 18:47 - History of Present Illness Initial comments: Patient is a 28-year-old female presented to the ER with chief complaint nausea and vomiting. She states for the whole day she has not gone an hour without having an episode of vomiting. She does reports she is 16 weeks . Denies any vaginal bleeding or abdominal pain. (Sharon Craft) 28-year-old female presenting with chief complaint of nausea and vomiting. Patient is currently 16 weeks . She states that all day today she has been unable to hold down food or fluids. She denies any cramping or vaginal bleeding. No fevers or chills. No hematemesis. She did have a bit of diarrhea earlier today. (Khushboo Banks) - Related Data Home Medications Medication Instructions Recorded Confirmed Vit No.179/Iron/Folic 1 each PO DAILY 12/26/21 12/26/21 [ Tablet] diphenhydrAMINE [Benadryl] 25 mg PO DAILY 12/26/21 12/26/21 Previous Rx's Medication Instructions Recorded Ibuprofen [Motrin] 600 mg PO Q6HR PRN #40 tab 12/27/21 Ondansetron Odt [Zofran Odt] 4 mg PO Q8HR PRN #20 tab 07/04/23 Allergies Allergy/AdvReac Type Severity Reaction Status Date / Time sulfamethoxazole Allergy Rash/Hives Verified 12/26/21 06:09 [From Bactrim] trimethoprim [From Bactrim] Allergy Rash/Hives Verified 12/26/21 06:09 Review of Systems ROS Other: All systems not noted in ROS Statement are negative. <Sharon Craft - Last Filed: 07/04/23 18:47> ROS Other: All systems not noted in ROS Statement are negative. <Khushboo Banks - Last Filed: 07/05/23 01:05> ROS Statement: Those systems with pertinent positive or pertinent negative responses have been documented in the HPI. Past Medical History Past Medical History: GERD/Reflux, Syncope, Thyroid Disorder Additional Past Medical History / Comment(s): Tachycardia, palpitations, hypothyroid but lab tests normal and no longer on medication for this History of Any Multi-Drug Resistant Organisms: MRSA Date of last positivie culture/infection: 2009 MDRO Source:: buttock Past Surgical History: No Surgical Hx Reported Additional Past Surgical History / Comment(s): wisdom teeth extractions, TTT Past Anesthesia/Blood Transfusion Reactions: No Reported Reaction Past Psychological History: No Psychological Hx Reported Additional Psychological History / Comment(s): Pt resides with her father and her spouse. She is independent. Smoking Status: Never smoker Past Alcohol Use History: Rare Past Drug Use History: None Reported - Past Family History Mother Family Medical History: Hyperlipidemia, Osteoarthritis (OA) Additional Family Medical History / Comment(s): Anxiety, depression Father Family Medical History: Hypertension <Sharon Craft - Last Filed: 07/04/23 18:47> General Exam <Sharon Craft - Last Filed: 07/04/23 18:47> Limitations: no limitations General appearance: alert, in no apparent distress Head exam: Present: atraumatic, normocephalic Eye exam: Present: normal appearance Neck exam: Present: normal inspection Respiratory exam: Present: normal lung sounds bilaterally. Absent: respiratory distress, wheezes, rales, rhonchi, stridor Cardiovascular Exam: Present: normal rhythm, tachycardia, normal heart sounds. Absent: systolic murmur, diastolic murmur, rubs, gallop, clicks Neurological exam: Present: alert, oriented X3 Psychiatric exam: Present: normal affect, normal mood Skin exam: Present: warm, dry <Khushboo Banks - Last Filed: 07/05/23 01:05> - General Exam Comments Initial Comments: Visual Physical Exam Vital signs reviewed General: Well-appearing, nontoxic, no acute distress. Head: Normocephalic, atraumatic Eyes: PERRLA, EOMI ENT: Airway patent Chest: Nonlabored breathing Skin: No visual rash, normal skin tone Neuro: Alert and oriented 3 Musculoskeletal: No gross abnormalities (Sharon Craft) Course Vital Signs 07/04/23 07/04/23 07/04/23 19:22 22:18 23:45 Temperature 98.2 F 98.3 F 98.4 F Pulse Rate 160 H 132 H 120 H Respiratory 20 18 18 Rate Blood Pressure 132/96 115/95 110/72 O2 Sat by Pulse 99 100 100 Oximetry Medical Decision Making <Sharon Craft - Last Filed: 07/04/23 18:47> - Lab Data Result diagrams: 07/04/23 19:42 07/04/23 19:42 <Khushboo Banks - Last Filed: 07/05/23 01:05> - Medical Decision Making I performed the quick note portion of this chart. Electronically signed by Sharon Craft PA-C (Sharon Craft) Was pt. sent in by a medical professional or institution ([facility], [employer], urgent care, hospital, or snf...) When possible be specific @ -No Did you speak to anyone other than the patient for history (EMS, parent, family, police, friend...)? What history was obtained from this source @ -No Did you review nursing and triage notes (agree or disagree)? Why? @ -I reviewed and agree with nursing and triage notes Were old charts reviewed (outside hosp., previous admission, EMS record, old EKG, old radiological studies, urgent care reports/EKG's, snf records)? Report findings @ -No old charts were reviewed Differential Diagnosis (chest pain, altered mental status, abdominal pain women, abdominal pain men, vaginal bleeding, weakness, fever, dyspnea, syncope, headache, dizziness, GI bleed, back pain, seizure, CVA, palpatations, mental he alth, musculoskeletal)? @ -Differential includes hyperemesis gravidarum, gastroenteritis, UTI, kidney stone, appendicitis, this is not an all-inclusive list EKG interpreted by me (3pts min.). @ -As above X-rays interpreted by me (1pt min.). @ -X-ray shows sinus tachycardia ventricular rate 127. DE interval 146. QRS 94. QT 304. QTc 379. CT interpreted by me (1pt min.). @ -None done U/S interpreted by me (1pt. min.). @ -None done What testing was considered but not performed or refused? (CT, X-rays, U/S, labs)? Why? @ -None What meds were considered but not given or refused? Why? @ -None Did you discuss the management of the patient with other professionals (professionals i.e. Dr., PA, [employer], lab, RT, psych nurse, family welfare social work professor, vice president of nursing, teacher, surveillance officer, rn case manager hospice)? Give summary @ -No Was smoking cessation discussed for >3mins.? @ -No Was critical care preformed (if so, how long)? @ -No Were there social determinants of health that impacted care today? How? (Homeles sness, low income, unemployed, alcoholism, drug addiction, transportation, low edu. Level, literacy, decrease access to med. care, retirement, rehab)? @ -No Was there de-escalation of care discussed even if they declined (Discuss DNR or withdrawal of care, Hospice)? DNR status @ -No What co-morbidities impacted this encounter? (DM, HTN, Smoking, COPD, CAD, Cancer, CVA, ARF, Chemo, Hep., AIDS, mental health diagnosis, sleep apnea, morbid obesity)? @ -None Was patient admitted / discharged? Hospital course, mention meds given and route, prescriptions, significant lab abnormalities, going to OR and other pertinent info. @ -28-year-old female 16 weeks presented with chief complaint of palma sea vomiting that started today. No cramping or vaginal bleeding. Upon arrival patient is tachycardic, likely due to dehydration. 2 L fluid bolus and 4 mg of Zofran ordered. EKG shows sinus tachycardia. WBC 17.3, likely reactive. Urine shows 4+ ketones, likely due to dehydration. 39,577.8, normal range for 16 weeks. She is negative for influenza, RSV, and COVID. On reassessment the patient reports that she feels significantly better. She would like to be discharged home. She sent a prescription for Zofran. She will follow-up with her LABORATORY MACHINIST Dr. Sunshine. Follow-up with PCP. Report back to ER with any new or worsening symptoms. Discussed return parameters and answered all questions. Patient conveyed verbal understanding and agreed to the plan. I discussed this case in detail with my attending Dr. Lopez Undiagnosed new problem with uncertain prognosis? @ -No Drug Therapy requiring intensive monitoring for toxicity (Heparin, Nitro, Insulin, Cardizem)? @ -No Were any procedures done? @ -No Diagnosis/symptom? @ -Nausea vomiting of Acute, or Chronic, or Acute on Chronic? @ -Acute Uncomplicated (without systemic symptoms) or Complicated (systemic symptoms)? @ -Complicated Side effects of treatment? @ -No Exacerbation, Progression, or Severe Exacerbation? @ -No Poses a threat to life or bodily function? How? (Chest pain, USA, CO, pneumonia, PE, COPD, DKA, ARF, appy, cholecystitis, CVA, Diverticulitis, Homicidal, Suicidal, threat to staff... and all critical care pts) @ -Low likelihood (Khushboo Banks) - Lab Data Lab Results 07/04/23 07/04/23 07/04/23 Range/Units 19:42 19:42 19:42 WBC 17.3 H (3.8-10.6) k/uL RBC 4.39 (3.80-5.40) m/uL Hgb 13.5 (11.4-16.0) gm/dL Hct 39.7 (34.0-46.0) % MCV 90.5 (80.0-100.0) fL MCH 30.8 (25.0-35.0) pg MCHC 34.0 (31.0-37.0) g/dL RDW 12.5 (11.5-15.5) % Plt Count 259 (150-450) k/uL MPV 7.7 Sodium 135 L (137-145) mmol/L Potassium 4.2 (3.5-5.1) mmol/L Chloride 107 (98-107) mmol/L Carbon Dioxide 18 L (22-30) mmol/L Anion Gap 10 mmol/L BUN 9 (7-17) mg/dL Creatinine 0.43 L (0.52-1.04) mg/dL Est GFR (CKD-EPI)AfAm >90 (>60 ml/min/1.73 sqM) Est GFR (CKD-EPI)NonAf >90 (>60 ml/min/1.73 sqM) Glucose 95 (74-99) mg/dL Calcium 9.4 (8.4-10.2) mg/dL Total Bilirubin 0.9 (0.2-1.3) mg/dL AST 33 (14-36) U/L ALT 16 (4-34) U/L Alkaline Phosphatase 66 (38-126) U/L Total Protein 7.7 (6.3-8.2) g/dL Albumin 4.4 (3.5-5.0) g/dL HCG, Quant 33973.8 mIU/mL Urine Color Yellow Urine Appearance Clear (Clear) Urine pH 5.5 (5.0-8.0) Ur Specific Chalmers 1.032 (1.001-1.035) Urine Protein 1+ H (Negative) Urine Glucose (UA) Negative (Negative) Urine Ketones 4+ H (Negative) Urine Blood Negative (Negative) Urine Nitrite Negative (Negative) Urine Bilirubin Negative (Negative) Urine Urobilinogen <2.0 (<2.0) mg/dL Ur Leukocyte Esterase Negative (Negative) Urine RBC 1 (0-5) /hpf Urine WBC 3 (0-5) /hpf Ur Squamous Epith Cells 2 (0-4) /hpf Urine Bacteria Rare H (None) /hpf Urine Mucus Moderate H (None) /hpf Influenza Type A (PCR) (Not Detectd) Influenza Type B (PCR) (Not Detectd) RSV (PCR) (Not Detectd) SARS-CoV-2 (PCR) (Not Detectd) 07/04/23 Range/Units 21:15 WBC (3.8-10.6) k/uL RBC (3.80-5.40) m/uL Hgb (11.4-16.0) gm/dL Hct (34.0-46.0) % MCV (80.0-100.0) fL MCH (25.0-35.0) pg MCHC (31.0-37.0) g/dL RDW (11.5-15.5) % Plt Count (150-450) k/uL MPV Sodium (137-145) mmol/L Potassium (3.5-5.1) mmol/L Chloride (98-107) mmol/L Carbon Dioxide (22-30) mmol/L Anion Gap mmol/L BUN (7-17) mg/dL Creatinine (0.52-1.04) mg/dL Est GFR (CKD-EPI)AfAm (>60 ml/min/1.73 sqM) Est GFR (CKD-EPI)NonAf (>60 ml/min/1.73 sqM) Glucose (74-99) mg/dL Calcium (8.4-10.2) mg/dL Total Bilirubin (0.2-1.3) mg/dL AST (14-36) U/L ALT (4-34) U/L Alkaline Phosphatase (38-126) U/L Total Protein (6.3-8.2) g/dL Albumin (3.5-5.0) g/dL HCG, Quant mIU/mL Urine Color Urine Appearance (Clear) Urine pH (5.0-8.0) Ur Specific Chalmers (1.001-1.035) Urine Protein (Negative) Urine Glucose (UA) (Negative) Urine Ketones (Negative) Urine Blood (Negative) Urine Nitrite (Negative) Urine Bilirubin (Negative) Urine Urobilinogen (<2.0) mg/dL Ur Leukocyte Esterase (Negative) Urine RBC (0-5) /hpf Urine WBC (0-5) /hpf Ur Squamous Epith Cells (0-4) /hpf Urine Bacteria (None) /hpf Urine Mucus (None) /hpf Influenza Type A (PCR) Not Detected (Not Detectd) Influenza Type B (PCR) Not Detected (Not Detectd) RSV (PCR) Not Detected (Not Detectd) SARS-CoV-2 (PCR) Not Detected (Not Detectd) Disposition <Sharon Craft - Last Filed: 07/04/23 18:47> Is patient prescribed a controlled substance at d/c from ED?: No Time of Disposition: 23:52 <Khushboo Banks - Last Filed: 07/05/23 01:05> Clinical Impression: Nausea and vomiting during Disposition: HOME SELF-CARE Condition: Fair Instructions (If sedation given, give patient instructions): Nausea and Vomiting in (ED) Additional Instructions: Follow-up with PCP and LABORATORY MACHINIST. Report back to ER with any new or worsening symptoms. Prescriptions: Ondansetron Odt [Zofran Odt] 4 mg PO Q8HR PRN #20 tab PRN Reason: Nausea Referrals: Michoacano Brito MD [Primary Care Provider] - 1-2 days Ammy Sunshine DO [Doctor of Osteopathic Medicine] - 1-2 days
[2023-07-04] MEDS: ONDANSETRON 4 MG/2 ML VIAL IVP STA (19:44)
[2023-07-04] MEDS: SODIUM CHLORIDE 0.9% 2,000 ML IV ONE (19:45)
[2023-07-04 20:16] LABS: HCT 39.7 % (34.0-46.0); HGB 13.5 gm/dL (11.4-16.0); MCH 30.8 pg (25.0-35.0); MCV 90.5 fL (80.0-100.0); Mean Platelet Volume 7.7; Platelet Count 259 k/uL (150-450); RBC 4.39 m/uL (3.80-5.40); RDW 12.5 % (11.5-15.5); WBC 17.3 k/uL (3.8-10.6)
[2023-07-04 20:39] LABS: ALT 16 U/L (4-34); African American GFR (CKD) >90 (>60 ml/min/1.73 sqM); Albumin 4.4 g/dL (3.5-5.0); Anion Gap 10 mmol/L; Blood Urea Nitrogen 9 mg/dL (7-17); Calcium 9.4 mg/dL (8.4-10.2); Carbon Dioxide 18 mmol/L (22-30); Chloride 107 mmol/L (98-107); Glucose 95 mg/dL (74-99); Non-African American GFR(CKD) >90 (>60 ml/min/1.73 sqM); Sodium 135 mmol/L (137-145); Total Bilirubin 0.9 mg/dL (0.2-1.3); Total Protein 7.7 g/dL (6.3-8.2)
[2023-07-04 20:45] LABS: AST 33 U/L (14-36); Alkaline Phosphatase 66 U/L (38-126); Potassium 4.2 mmol/L (3.5-5.1)
[2023-07-04 21:40] LABS: HCG,Quantitative Serum 39577.8 mIU/mL
[2023-07-04 22:06] LABS: Appearance,Urine Clear (Clear); Bacteria,Urine Rare /hpf; Bilirubin,Urine Negative (Negative); Blood,Urine Negative (Negative); Color,Urine Yellow; Glucose,Urine (UA) Negative (Negative); Ketones,Urine 4+ (Negative); Leukocyte Esterase,Urine Negative (Negative); Mucus,Urine Moderate /hpf; Nitrite,Urine Negative (Negative); PH, Urine 5.5 (5.0-8.0); Protein,Urine 1+ (Negative); RBC,Urine 1 /hpf (0-5); Specific Gravity,Urine 1.032 (1.001-1.035); Squamous Epithelial Cell,Urine 2 /hpf (0-4); Urobilinogen,Urine <2.0 mg/dL (<2.0); WBC,Urine 3 /hpf (0-5)
[2023-07-04 22:48] VITALS: RESP 18
[2023-07-04 23:51] VITALS: BP 110/72; PULSE 120; TEMP 98.4
[2023-07-05] MEDS: ONDANSETRON 4 MG ODT STARTER PACK 2 TAB BTL PO STA (00:01)
== END 2023-07-05 00:04 | disposition home or self-care (01) ==
LOC: EC 18:29
DX: O21.9 Vomiting of pregnancy, unspecified (principal); O26.892 Other specified pregnancy related conditions, second trimester; R00.0 Tachycardia, unspecified; Z20.822 Contact with and (suspected) exposure to COVID-19; Z3A.16 16 weeks gestation of pregnancy; Z88.1 Allergy status to other antibiotic agents; Z88.2 Allergy status to sulfonamides
CPT/HCPCS: 36415; 93005; 80053; 85027; 81001; 84702; 87636; 99284; 96374; 96361 ×3; J2405

== ENCOUNTER → 2023-07-23 | Outpatient (CLI) | payer BC ==
--- NOTE | 2023-07-23 22:29 | US ---
EXAMINATION TYPE: US OB anatomy transabd DATE OF EXAM: 07/23/2023 COMPARISON: NONE CLINICAL INDICATION: Female, 28 years old with history of O36.62X0 MATERNAL CARE FOR EXCESS FLACO WTH, SE; Anatomy TECHNIQUE: Transabdominal (TA) EXAM MEASUREMENTS: GESTATIONAL AGE / DATING Physician Established: (19 weeks/2 days) EDC: 12/15/2023 Dates by LMP: (19 weeks/2 days) EDC: 12/15/2023 Dates by First Scan:No previous this is first scan at this facility Dates by Current Scan for: (19 weeks/6 days) EDC: 12/11/2023 SURVEY IUP: Single PLACENTA: Anterior PREVIA: No previa CATHY: 16.3 cm Normal CERVICAL LENGTH (transabdominal: norm > 3.0cm): 4.3 cm BIOMETRY PRESENTATION: Variable LIE: Transverse lie with head maternal R BPD: 4.6 cm 19 weeks / 6 days HC: 17.5 cm 20 weeks / 0 days AC: 15.8 cm 20 weeks / 6 days FL: 3.1 cm 19 weeks / 3 days ESTIMATED WEIGHT IN GRAMS: 339.4 grams ESTIMATED WEIGHT IN LBS/OZ: 0 lbs. 12 oz. WEIGHT PERCENTAGE BASED ON ESTABLISHED DATE: 91.8 % HC/AC: 1.1 Normal FL/AC: 19.42 Normal HEART RATE: 152 bpm RHYTHM: Normal ANATOMY SEEN (within normal limits): * Lateral Vent (< 1 cm) 0.6 cm * Cisterna Magna (< 1.1 cm) 0.5 cm * Nuchal Fold (< 0.6 cm) 0.4 cm * Cerebellum (varies with age) 1.9 cm Choroid Plexus (bilateral) Midline Falx Cavus Septi Pellucidi Stomach Situs Nose / Lips Diaphragm Kidneys (bilateral) Bladder Cord Insert Three Vessel Cord Longitudinal Spine Transverse Spine Arms (bilateral) Legs (bilateral) ANATOMY SEEN (does not appear within normal limits): ANATOMY NOT SEEN: 4 chamber heart, LVOT, RVOT IMPRESSION: Single live intrauterine gestation ultrasound age 19 weeks 6 days.
== END | disposition home or self-care (01) ==
LOC: RADUSWWP 14:01
PROVIDERS: ATTEND Obstetrics & Gynecology
DX: O36.62X1 Maternal care for excessive fetal growth, second trimester, fetus 1 (principal); Z3A.20 20 weeks gestation of pregnancy
CPT/HCPCS: 76811

== ENCOUNTER → 2023-08-04 | Outpatient (CLI) | payer OTHER ==
--- NOTE | 2023-08-04 17:30 | US ---
EXAMINATION TYPE: US OB Call Back DATE OF EXAM: 08/04/2023 COMPARISON: 07/23/2023 CLINICAL INDICATION: Female, 28 years old with history of ANATOMY CHECK; Missed RVOT, LVOT, and 4 Nicole mber GESTATIONAL AGE / DATING Dates by Initial Survey Scan: (21 weeks/0 days) EDC: 12/15/2023 HEART RATE: 158 bpm RHYTHM: Normal ANATOMY SEEN (second anatomic survey look): Four Chamber Heart: Outflow tracts:? LVOT/RVOT ANATOMY STILL NOT SEEN (requiring an additional callback appt): Missed anatomy seen on this exam IMPRESSION: 1. Supplemental imaging of anatomy appears normal. 2. Single intrauterine gestation estimated at 21 weeks 0 days gestation based on initial survey scan. Cardiac activity at this time was 158 bpm.
== END | disposition home or self-care (01) ==
LOC: RADUSWWP 15:23
PROVIDERS: ATTEND Obstetrics & Gynecology
DX: Z34.80 Encounter for supervision of other normal pregnancy, unspecified trimester (principal); Z3A.21 21 weeks gestation of pregnancy

== ENCOUNTER 2023-10-05 11:46 | Observation (INO) | payer BC, OTHER ==
--- NOTE | 2023-10-05 13:09 | ED ---
General Adult HPI - General Chief complaint: Arrhythmia/Palpitations Stated complaint: Palpitations, facial numbness, 30 weeks preg Time Seen by Provider: 10/05/23 12:30 Source: patient, RN notes reviewed, old records reviewed Mode of arrival: ambulatory Limitations: no limitations - History of Present Illness Initial comments: This is a 28-year-old female who presents to the emergency department she is 30 weeks . Patient comes in because she started having heart palpitations. Patient states this happened a couple years ago but she has not had any since. Patient states while she was at work her heart started racing and she measured it at 160 beats a minute. Patient states she also became very short of breath and lightheaded. Patient states she can feel her heart racing now but is not as bad as it was. Patient denies any chest pain. Patient has any swelling to the legs or calf tenderness. Patient denies abdominal pain patient has nausea vomiting. - Related Data Home Medications Medication Instructions Recorded Confirmed Vit No.179/Iron/Folic 1 tab PO HS 12/26/21 10/05/23 [ Tablet] Sodium Chloride [[place]] 1 spray EA NOSTRIL BID 10/05/23 10/05/23 Unknown Allergy Medication 1 dose PO DAILY 10/05/23 10/05/23 Allergies Allergy/AdvReac Type Severity Reaction Status Date / Time Sulfa (Sulfonamide Allergy Rash/Hives Verified 10/05/23 13:15 Antibiotics) sulfamethoxazole Allergy Rash/Hives Verified 10/05/23 13:15 [From Bactrim] trimethoprim [From Bactrim] Allergy Rash/Hives Verified 10/05/23 13:15 Review of Systems ROS Statement: Those systems with pertinent positive or pertinent negative responses have been documented in the HPI. ROS Other: All systems not noted in ROS Statement are negative. Past Medical History Past Medical History: GERD/Reflux, Syncope, Thyroid Disorder Additional Past Medical History / Comment(s): Tachycardia, palpitations, hypothyroid but lab tests normal and no longer on medication for this History of Any Multi-Drug Resistant Organisms: MRSA Date of last positivie culture/infection: 2009 MDRO Source:: buttock Past Surgical History: No Surgical Hx Reported Additional Past Surgical History / Comment(s): wisdom teeth extractions, TTT Past Anesthesia/Blood Transfusion Reactions: No Reported Reaction Past Psychological History: No Psychological Hx Reported Smoking Status: Never smoker Past Alcohol Use History: Rare Past Drug Use History: None Reported - Past Family History Mother Family Medical History: Hyperlipidemia, Osteoarthritis (OA) Additional Family Medical History / Comment(s): Anxiety, depression Father Family Medical History: Hypertension General Exam - General Exam Comments Initial Comments: GENERAL: Patient is well-developed and well-nourished. Patient is nontoxic and well- hydrated and is in mild distress. ENT: Neck is soft and supple. No significant lymphadenopathy is noted. Oropharynx is clear. Moist mucous membranes. Neck has full range of motion without eliciting any pain. EYES: The sclera were anicteric and conjunctiva were pink and moist. Extraocular movements were intact and pupils were equal round and reactive to light. Eyelids were unremarkable. PULMONARY: Unlabored respirations. Good breath sounds bilaterally. No audible rales rhonchi or wheezing was noted. CARDIOVASCULAR: Is tachycardic at about 140 beats a minute ABDOMEN: Soft and nontender with normal bowel sounds. SKIN: Skin is clear with no lesions or rashes and otherwise unremarkable. NEUROLOGIC: Patient is alert and oriented x3. Cranial nerves II through XII are grossly intact. Motor and sensory are also intact. Normal speech, volume and content. Symmetrical smile. MUSCULOSKELETAL: Normal extremities with adequate strength and full range of motion. No lower extremity swelling or edema. No calf tenderness. LYMPHATICS: No significant lymphadenopathy is noted PSYCHIATRIC: Normal psychiatric evaluation. Limitations: no limitations Course Vital Signs 10/05/23 10/05/23 10/05/23 11:58 13:05 14:38 Temperature 98.6 F 99.6 F Pulse Rate 128 H 122 H Pulse Rate [ 133 H Principal Consultant ] Respiratory 22 18 Rate Blood Pressure 119/76 133/78 O2 Sat by Pulse 98 98 Oximetry 10/05/23 17:31 Temperature Pulse Rate 105 H Pulse Rate [ Principal Consultant ] Respiratory 19 Rate Blood Pressure 134/87 O2 Sat by Pulse 99 Oximetry Medical Decision Making - Medical Decision Making EKG is interpreted by myself. EKG shows sinus tachycardia at a rate of 137 bpm CO interval 173 QRS is 74 QT interval is 284 QTc is 364. Patient's EKG shows no ST segment elevation or depression. Was pt. sent in by a medical professional or institution (, PA, DANCE PROFESSOR, urgent care, hospital, or care home...) When possible be specific @ -No Did you speak to anyone other than the patient for history (EMS, parent, family, police, friend...)? What history was obtained from this source @ -No Did you review nursing and triage notes (agree or disagree)? Why? @ -I reviewed and agree with nursing and triage notes Were old charts reviewed (outside hosp., previous admission, EMS record, old EKG, old radiological studies, urgent care reports/EKG's, care home records)? Report findings @ -No old charts were reviewed Differential Diagnosis (chest pain, altered mental status, abdominal pain women, abdominal pain men, vaginal bleeding, weakness, fever, dyspnea, syncope, headache, dizziness, GI bleed, back pain, seizure, CVA, palpatations, mental health, musculoskeletal)? @ -Differential Palpitations Ventricular arrhythmias, atrial arrhythmias, myocardial infarction, anemia, thyrotoxicosis, electrolyte imbalance, hypokalemia, pulmonary embolism, pulmonary disease, drugs, alcohol, anxiety, stress.... This is not meant to be an all-inclusive list. EKG interpreted by me (3pts min.). @ -As above X-rays interpreted by me (1pt min.). @ -None done CT interpreted by me (1pt min.). @ -CT of the chest showed no pulmonary embolism U/S interpreted by me (1pt. min.). @ -None done What testing was considered but not performed or refused? (CT, X-rays, U/S, labs)? Why? @ -None What meds were considered but not given or refused? Why? @ -None Did you discuss the management of the patient with other professionals (professionals i.e. , PA, DANCE PROFESSOR, lab, RT, psych nurse, social media assistant, photogrammetry airplane pilot, teacher, sheriff officer, director of casework)? Give summary @ -[facility] admit the patient wrote admitting orders Was smoking cessation discussed for >3mins.? @ -No Was critical care preformed (if so, how long)? @ -No Were there social determinants of health that impacted care today? How? (Homelessness, low income, unemployed, alcoholism, drug addiction, transportation, low edu. Level, literacy, decrease access to med. care, correction, rehab)? @ -No Was there de-escalation of care discussed even if they declined (Discuss DNR or withdrawal of care, Hospice)? DNR status @ -No What co-morbidities impacted this encounter? (DM, HTN, Smoking, COPD, CAD, Cancer, CVA, ARF, Chemo, Hep., AIDS, mental health diagnosis, sleep apnea, morbid obesity)? @ -None Was patient admitted / discharged? Hospital course, mention meds given and route, prescriptions, significant lab abnormalities, going to OR and other pertinent info. @ -I went back in the room to reevaluate the patient lab work was within normal range with a mildly elevated white count which is typical for . Patient's CT scan showed no PE however when I saw the patient lying in bed resting her heart rate was 123 beats a minute and jumped up to about 140 with just conversation with me. Patient states she could still feel her heart racing. At this point time I thought it would be best to have cardiology evaluated. I am still waiting for thyroid studies as well. Patient denied drug use but 1 was ordered anyhow. Patient will be admitted to [facility] with cardiology consult Undiagnosed new problem with uncertain prognosis? @ -No Drug Therapy requiring intensive monitoring for toxicity (Heparin, Nitro, Insulin, Cardizem)? @ -No Were any procedures done? @ -No Diagnosis/symptom? @ -Sinus tachycardia Acute, or Chronic, or Acute on Chronic? @ -Acute Uncomplicated (without systemic symptoms) or Complicated (systemic symptoms)? @ -Complicated Side effects of treatment? @ -No Exacerbation, Progression, or Severe Exacerbation? @ -No Poses a threat to life or bodily function? How? (Chest pain, [place], [place], pneumonia, PE, COPD, DKA, ARF, appy, cholecystitis, CVA, Diverticulitis, Homicidal, Suicidal, threat to staff... and all critical care pts) @ -Yes this could lead to poor perfusion and endorgan dysfunction Diagnosis/symptom? @ -Third trimester Acute, or Chronic, or Acute on Chronic? @ -Default Uncomplicated (without systemic symptoms) or Complicated (systemic symptoms)? @ -Default Side effects of treatment? @ -None Exacerbation, Progression, or Severe Exacerbation] @ -No Poses a threat to life or bodily function? @ -No Repeat EKG was done and interpreted by myself showed sinus tachycardia 126 bpm parables 131 QRS is 82 QT interval 398 QTc is 372. Patient's EKG shows no ST segment elevation or depression. - Lab Data Result diagrams: 10/05/23 12:50 10/05/23 12:50 Lab Results 10/05/23 10/05/23 10/05/23 Range/Units 12:50 12:50 12:50 WBC 14.5 H (3.8-10.6) k/uL RBC 3.72 L (3.80-5.40) m/uL Hgb 11.3 L (11.4-16.0) gm/dL Hct 34.1 (34.0-46.0) % MCV 91.7 (80.0-100.0) fL MCH 30.3 (25.0-35.0) pg MCHC 33.0 (31.0-37.0) g/dL RDW 13.2 (11.5-15.5) % Plt Count 267 (150-450) k/uL MPV 8.5 Neutrophils % 81 % Lymphocytes % 13 % Monocytes % 5 % Eosinophils % 0 % Basophils % 0 % Neutrophils # 11.7 H (1.3-7.7) k/uL Lymphocytes # 1.9 (1.0-4.8) k/uL Monocytes # 0.7 (0-1.0) k/uL Eosinophils # 0.1 (0-0.7) k/uL Basophils # 0.0 (0-0.2) k/uL PT 9.9 L (10.0-12.5) sec INR 0.9 (<1.2) APTT 23.3 (22.0-30.0) sec D-Dimer 1.57 H (<0.60) mg/L FEU Sodium 137 (137-145) mmol/L Potassium 3.8 (3.5-5.1) mmol/L Chloride 112 H (98-107) mmol/L Carbon Dioxide 18 L (22-30) mmol/L Anion Gap 7 mmol/L BUN 3 L (7-17) mg/dL Creatinine 0.33 L (0.52-1.04) mg/dL Est GFR (CKD-EPI)AfAm >90 (>60 ml/min/1.73 sqM) Est GFR (CKD-EPI)NonAf >90 (>60 ml/min/1.73 sqM) Glucose 104 H (74-99) mg/dL Calcium 9.2 (8.4-10.2) mg/dL Magnesium 1.8 (1.6-2.3) mg/dL Total Bilirubin 0.4 (0.2-1.3) mg/dL AST 19 (14-36) U/L ALT 14 (4-34) U/L Alkaline Phosphatase 96 (38-126) U/L Troponin I (0.000-0.034) ng/mL Total Protein 6.8 (6.3-8.2) g/dL Albumin 3.8 (3.5-5.0) g/dL TSH (0.465-4.680) mIU/L Free T4 (0.78-2.19) ng/dL Urine Opiates Screen (NotDetected) Ur Oxycodone Screen (NotDetected) Urine Methadone Screen (NotDetected) Ur Barbiturates Screen (NotDetected) U Tricyclic Antidepress (NotDetected) Ur Phencyclidine Scrn (NotDetected) Ur Amphetamines Screen (NotDetected) U Methamphetamines Scrn (NotDetected) U Benzodiazepines Scrn (NotDetected) Urine Cocaine Screen (NotDetected) U Marijuana (THC) Screen (NotDetected) 10/05/23 10/05/23 10/05/23 Range/Units 12:50 12:50 17:29 WBC (3.8-10.6) k/uL RBC (3.80-5.40) m/uL Hgb (11.4-16.0) gm/dL Hct (34.0-46.0) % MCV (80.0-100.0) fL MCH (25.0-35.0) pg MCHC (31.0-37.0) g/dL RDW (11.5-15.5) % Plt Count (150-450) k/uL MPV Neutrophils % % Lymphocytes % % Monocytes % % Eosinophils % % Basophils % % Neutrophils # (1.3-7.7) k/uL Lymphocytes # (1.0-4.8) k/uL Monocytes # (0-1.0) k/uL Eosinophils # (0-0.7) k/uL Basophils # (0-0.2) k/uL PT (10.0-12.5) sec INR (<1.2) APTT (22.0-30.0) sec D-Dimer (<0.60) mg/L FEU Sodium (137-145) mmol/L Potassium (3.5-5.1) mmol/L Chloride (98-107) mmol/L Carbon Dioxide (22-30) mmol/L Anion Gap mmol/L BUN (7-17) mg/dL Creatinine (0.52-1.04) mg/dL Est GFR (CKD-EPI)AfAm (>60 ml/min/1.73 sqM) Est GFR (CKD-EPI)NonAf (>60 ml/min/1.73 sqM) Glucose (74-99) mg/dL Calcium (8.4-10.2) mg/dL Magnesium (1.6-2.3) mg/dL Total Bilirubin (0.2-1.3) mg/dL AST (14-36) U/L ALT (4-34) U/L Alkaline Phosphatase (38-126) U/L Troponin I <0.012 (0.000-0.034) ng/mL Total Protein (6.3-8.2) g/dL Albumin (3.5-5.0) g/dL TSH 0.860 (0.465-4.680) mIU/L Free T4 0.88 (0.78-2.19) ng/dL Urine Opiates Screen Not Detected (NotDetected) Ur Oxycodone Screen Not Detected (NotDetected) Urine Methadone Screen Not Detected (NotDetected) Ur Barbiturates Screen Not Detected (NotDetected) U Tricyclic Antidepress Not Detected (NotDetected) Ur Phencyclidine Scrn Not Detected (NotDetected) Ur Amphetamines Screen Not Detected (NotDetected) U Methamphetamines Scrn Not Detected (NotDetected) U Benzodiazepines Scrn Not Detected (NotDetected) Urine Cocaine Screen Not Detected (NotDetected) U Marijuana (THC) Screen Not Detected (NotDetected) Disposition Clinical Impression: Sinus tachycardia Disposition: ADMITTED IP TO THIS [facility] Time of Disposition: 17:34
[2023-10-05 13:29] LABS: ALT 14 U/L (4-34); AST 19 U/L (14-36); African American GFR (CKD) >90 (>60 ml/min/1.73 sqM); Albumin 3.8 g/dL (3.5-5.0); Alkaline Phosphatase 96 U/L (38-126); Anion Gap 7 mmol/L; Blood Urea Nitrogen 3 mg/dL (7-17); Calcium 9.2 mg/dL (8.4-10.2); Carbon Dioxide 18 mmol/L (22-30); Chloride 112 mmol/L (98-107); Glucose 104 mg/dL (74-99); Magnesium 1.8 mg/dL (1.6-2.3); Non-African American GFR(CKD) >90 (>60 ml/min/1.73 sqM); Potassium 3.8 mmol/L (3.5-5.1); Sodium 137 mmol/L (137-145); Total Bilirubin 0.4 mg/dL (0.2-1.3); Total Protein 6.8 g/dL (6.3-8.2)
[2023-10-05 13:33] LABS: Basophils % (A) 0 %; Eosinophils # (A) 0.1 k/uL (0-0.7); Eosinophils % (A) 0 %; HCT 34.1 % (34.0-46.0); HGB 11.3 gm/dL (11.4-16.0); Lymphocytes # (A) 1.9 k/uL (1.0-4.8); Lymphocytes % (A) 13 %; MCH 30.3 pg (25.0-35.0); MCV 91.7 fL (80.0-100.0); Mean Platelet Volume 8.5; Monocytes # (A) 0.7 k/uL (0-1.0); Monocytes % (A) 5 %; Neutrophils # (A) 11.7 k/uL (1.3-7.7); Neutrophils % (A) 81 %; Platelet Count 267 k/uL (150-450); RBC 3.72 m/uL (3.80-5.40); RDW 13.2 % (11.5-15.5); WBC 14.5 k/uL (3.8-10.6)
[2023-10-05 13:34] LABS: INR 0.9 (<1.2); Partial Thromboplastin Time 23.3 sec (22.0-30.0); Prothrombin Time 9.9 sec (10.0-12.5)
[2023-10-05] MEDS: SODIUM CHLORIDE 0.9% 1,000 ML IV ONE (15:06)
--- NOTE | 2023-10-05 16:20 | CT ---
EXAMINATION TYPE: CT chest angio for PE CT DLP: 388.8 mGycm, Automated exposure control for dose reduction was used. DATE OF EXAM: 10/05/2023 3:33 PM COMPARISON: Chest radiograph from same day. Multiple CTs of the chest with most recent on . CLINICAL INDICATION:Female, 28 years old with history of Palpitations, elevated D-dimer; Palpitations , elevated D-dimer. 30wks . TECHNIQUE/CONTRAST: CTA scan of the thorax is performed with IV Contrast, patient injected with 100 ml mL of Isovue 370, MIP images are created and reviewed these are created on a separate workstation.. FINDINGS: Pulmonary Artery: There is no evidence for a filling defect within the pulmonary vasculature to sugge st acute pulmonary embolism. The pulmonary artery is of normal size. Lungs/Pleura: No evidence of focal consolidation, pleural effusion or pneumothorax. Airway: Large airways are patent. Heart: Heart is within normal limits for size. Vasculature: No evidence of aortic aneurysm. Mediastinum: No gross evidence of adenopathy. Musculoskeletal: No acute osseous abnormalities Soft Tissues: Unremarkable. Lower neck: No significant findings. Upper Abdomen: No significant findings. IMPRESSION: 1. No evidence of pulmonary embolism. 2. Superior portion of uterus imaged.
[2023-10-05] MEDS ORDERED: NITROGLYCERIN SL TABS 0.4 MG TAB SUBLINGUAL PRN (17:35)
[2023-10-05 17:47] LABS: Amphetamine Screen,Urine Not Detected (NotDetected); Barbiturate Screen,Urine Not Detected (NotDetected); Benzodiazepines Screen,Urine Not Detected (NotDetected); Cocaine Screen,Urine Not Detected (NotDetected); Methadone Screen, Urine Not Detected (NotDetected); Opiate Screen,Urine Not Detected (NotDetected); Oxycodone Screen, Urine Not Detected (NotDetected); Phencyclidine Screen,Urine Not Detected (NotDetected); Tricyclic Antidepressant,Urine Not Detected (NotDetected); Urn Cannabinoid Scrn Not Detected (NotDetected)
[2023-10-05 19:30] LABS: T4, Free (Free Thyroxine) 0.88 ng/dL (0.78-2.19)
--- NOTE | 2023-10-06 08:41 | P.OBCN ---
History of Present Illness Consult date: 10/06/23 Reason for consult: other (30 weeks intrauterine , sinus tachycardia with shortness of breath) History of present illness: The patient is a 28-year-old 2 para 1-0-0-1 at approximately 30 weeks intrauterine based upon last menstrual period dating and confirmed by second trimester ultrasound. She initially presented to triage with complaints of significant heart palpitations with shortness of breath while at work at which time she was found with a heart rate of approximately 160 bpm. She was cleared from an obstetrical standpoint on labor and delivery and sent to the emergency room for further workup. Laboratory workup in the ER has failed to demonstrate any significant findings aside from sinus tachycardia. The patient denies any other localizing symptoms to include leg pain or swelling or other signs or symptoms of either DVT or PE. She reports good movement and no specific concerns or complaints. She was seen in the office last week and has another appointment scheduled in approximately 1 week from now. The decision was made through the emergency department to admit her for further workup through cardiology with primary management through internal medicine. Obstetrical history: 2 para 1-0-0-1 with current statistics listed in history of present illness. Her has thus far been uncomplicated by report. EDC of 12/15/2023 was established by last menstrual period confirmed by second trimester ultrasound. Laboratory workup demonstrates a blood type of a positive with a negative antibody screen. Rubella status is immune. The remainder of the laboratory workup was within normal limits. 1 hour Glucola was normal. Gynecologic history: Unremarkable with no history of any infections to include STDs. Review of Systems Review of systems is confined to history of present illness. Past Medical History Past Medical History: GERD/Reflux, Syncope, Thyroid Disorder Additional Past Medical History / Comment(s): Tachycardia, palpitations, hypothyroid but lab tests normal and no longer on medication for this History of Any Multi-Drug Resistant Organisms: MRSA Year Discovered:: 2009 MDRO Source:: buttock Past Surgical History: No Surgical Hx Reported Additional Past Surgical History / Comment(s): wisdom teeth extractions, TTT Past Anesthesia/Blood Transfusion Reactions: No Reported Reaction Past Psychological History: No Psychological Hx Reported Smoking Status: Never smoker Past Alcohol Use History: Rare Past Drug Use History: None Reported - Past Family History Mother Family Medical History: Hyperlipidemia, Osteoarthritis (OA) Additional Family Medical History / Comment(s): Anxiety, depression Father Family Medical History: Hypertension Medications and Allergies Home Medications Medication Instructions Recorded Confirmed Type Vit No.179/Iron/Folic 1 tab PO HS 12/26/21 10/05/23 History [ Tablet] Sodium Chloride [[place]] 1 spray EA NOSTRIL BID 10/05/23 10/05/23 History Unknown Allergy Medication 1 dose PO DAILY 10/05/23 10/05/23 History Allergies Allergy/AdvReac Type Severity Reaction Status Date / Time Sulfa (Sulfonamide Allergy Rash/Hives Verified 10/05/23 13:15 Antibiotics) sulfamethoxazole Allergy Rash/Hives Verified 10/05/23 13:15 [From Bactrim] trimethoprim [From Bactrim] Allergy Rash/Hives Verified 10/05/23 13:15 Exam Vital Signs Temp Pulse Pulse Resp BP Pulse Ox 10/06/23 04:00 97.9 F 97 18 127/89 100 10/06/23 01:26 105 H 18 121/75 97 10/06/23 00:09 95 22 132/80 98 10/05/23 20:27 98.9 F 130 H 18 136/77 97 10/05/23 17:31 105 H 19 134/87 99 10/05/23 14:38 99.6 F 122 H 18 133/78 98 10/05/23 13:05 133 H 10/05/23 11:58 98.6 F 128 H 22 119/76 98 Examination is limited. The patient is a well-developed, well-nourished white female in no acute distress. Her abdomen is gravid, nondistended, soft, nonte nder, and without any palpable masses aside from the uterine fundus which is appropriate for gestational age. Her extremities are without any cyanosis, clubbing, or edema and are nontender to palpation bilaterally. Results Result Diagrams: 10/05/23 12:50 10/05/23 12:50 Abnormal Lab Results - Last 24 Hours (Table) 10/05/23 10/05/23 10/05/23 Range/Units 12:50 12:50 12:50 WBC 14.5 H (3.8-10.6) k/uL RBC 3.72 L (3.80-5.40) m/uL Hgb 11.3 L (11.4-16.0) gm/dL Neutrophils # 11.7 H (1.3-7.7) k/uL PT 9.9 L (10.0-12.5) sec D-Dimer 1.57 H (<0.60) mg/L FEU Chloride 112 H (98-107) mmol/L Carbon Dioxide 18 L (22-30) mmol/L BUN 3 L (7-17) mg/dL Creatinine 0.33 L (0.52-1.04) mg/dL Glucose 104 H (74-99) mg/dL Assessment and Plan (1) 30 weeks gestation of Current Visit: Yes Status: Acute Code(s): Z3A.30 - 30 WEEKS GESTATION OF SNOMED Code(s): 14096004 (2) Sinus tachycardia Current Visit: Yes Status: Acute Code(s): R00.0 - TACHYCARDIA, UNSPECIFIED SNOMED Code(s): 46496880 Plan: The patient is to be admitted to internal medicine for further cardiology workup, likely echocardiogram pending. From an obstetrical standpoint, no significant interventions are necessary. At this point, I have ordered a nonstress test once per shift but will change this to once daily as there are no concerns at this time. We will continue to follow at a distance and anticipate her discharge once cleared by cardiology.
[2023-10-06] MEDS ORDERED: ASPIRIN 325 MG TAB PO SCH (09:00)
--- NOTE | 2023-10-06 10:37 | P.CRDCN ---
History of Present Illness Consult date: 10/06/23 Reason for Consult (text): Sinus tachycardia [id number] History of present illness: History of present illness: This is a 28-year-old female patient of Dr. Edna Barney with past medical history of sinus tachycardia, at 30 weeks. We have been asked to evaluate the patient for sinus tachycardia running 140-160 bpm. Patient states that she felt her heart was racing yesterday and had a little shortness of breath. She denies any lightheadedness, dizziness, syncopal episodes. She has had the same sensation in the past and frequently. Patient has had a workup in the office including a 24-hour Holter which revealed a sinus rhythm with episodes of inappropriate sinus tachycardia. EKG sinus tachycardia 126 bpm, #2 sinus rhythm 87 bpm CTA chest: No evidence of pulmonary embolism. Is superior portion of uterus image. WBC 14.5, hemoglobin 9.3. D-dimer 1.57. Sodium 137, potassium 3.8, CO2 18, BUN 3 and creatinine 0.33. Troponin negative x 3. TSH 0.86 and free T40.88. Urine drug screen was negative. Home cardiac medications: None Echocardiogram performed in the office on 02/22/2019 reveals normal LV size and function. Trace mitral regurgitation. Treadmill exercise stress test performed in the office on 02/10/2019 revealed poor exercise tolerance. No symptoms typical of angina. Dysrhythmias in the form of rare PVCs. Normal electrocardiographic response to exercise with no evidence of stress-induced ischemia. Review Of Systems: At the time of my exam: CONSTITUTIONAL: Denies fever or chills. HEENT: Denies blurred vision, vision changes, or eye pain. Denies hemoptysis CARDIOVASCULAR: Denies chest pain. Denies orthopnea. Denies PND. Denies palpitations RESPIRATORY: Denies shortness of breath. GASTROINTESTINAL: Denies abdominal pain. Denies nausea or vomiting. HEMATOLOGIC: Denies bleeding disorders. GENITOURINARY: Denies any blood in urine. SKIN: Denies pruitis. Denies rash. Physical examination: Gen: This is a 28-year-old female in no acute distress VS: reviewed, blood pressure 134/87, heart rate 111, pulse ox 97% on room air. HEENT: Head is atraumatic, normocephalic. Pupils equal, round. Sclerae is anicteric. NECK: Supple. No JVD. LUNGS: Clear to auscultation. No wheezes or rhonchi. No intercostal retractions. HEART: Regular rate and rhythm. No murmur. ABDOMEN: Soft No tenderness. EXTREMITIES: No pedal edema. No calf tenderness. NEUROLOGICAL: Patient is awake, alert and oriented x3. Assessment: Sinus tachycardia at 30 weeks Plan: Would not advise any medications to control heart rate at this time secondary to Obtain 2-D echocardiogram and Doppler study to assess cardiac structure and function If echocardiogram is unremarkable, patient is cleared for discharge. Thank you kindly for this consultation. Nurse practitioner note has been reviewed, I agree with documented findings and plan of care. Patient was seen and examined. Past Medical History Past Medical History: GERD/Reflux, Syncope, Thyroid Disorder Additional Past Medical History / Comment(s): Tachycardia, palpitations, hypothyroid but lab tests normal and no longer on medication for this History of Any Multi-Drug Resistant Organisms: MRSA Date of last positivie culture/infection: 2009 MDRO Source:: buttock Past Surgical History: No Surgical Hx Reported Additional Past Surgical History / Comment(s): wisdom teeth extractions, TTT Past Anesthesia/Blood Transfusion Reactions: No Reported Reaction Past Psychological History: No Psychological Hx Reported Smoking Status: Never smoker Past Alcohol Use History: Rare Past Drug Use History: None Reported - Past Family History Mother Family Medical History: Hyperlipidemia, Osteoarthritis (OA) Additional Family Medical History / Comment(s): Anxiety, depression Father Family Medical History: Hypertension Medications and Allergies Home Medications Medication Instructions Recorded Confirmed Type Vit No.179/Iron/Folic 1 tab PO HS 12/26/21 10/05/23 History [ Tablet] Sodium Chloride [[place]] 1 spray EA NOSTRIL BID 10/05/23 10/05/23 History Unknown Allergy Medication 1 dose PO DAILY 10/05/23 10/05/23 History Allergies Allergy/AdvReac Type Severity Reaction Status Date / Time Sulfa (Sulfonamide Allergy Rash/Hives Verified 10/05/23 13:15 Antibiotics) sulfamethoxazole Allergy Rash/Hives Verified 10/05/23 13:15 [From Bactrim] trimethoprim [From Bactrim] Allergy Rash/Hives Verified 10/05/23 13:15 Physical Exam Vitals: Vital Signs Temp Pulse Pulse Resp BP Pulse Ox 10/06/23 08:44 111 H 18 134/87 97 10/06/23 04:00 97.9 F 97 18 127/89 100 10/06/23 01:26 105 H 18 121/75 97 10/06/23 00:09 95 22 132/80 98 10/05/23 20:27 98.9 F 130 H 18 136/77 97 10/05/23 17:31 105 H 19 134/87 99 10/05/23 14:38 99.6 F 122 H 18 133/78 98 10/05/23 13:05 133 H 10/05/23 11:58 98.6 F 128 H 22 119/76 98 Results 10/05/23 12:50 10/05/23 12:50 Cardiac Enzymes 10/05/23 10/05/23 10/05/23 Range/Units 12:50 12:50 18:29 AST 19 (14-36) U/L Troponin I <0.012 <0.012 (0.000-0.034) ng/mL 10/05/23 Range/Units 21:37 AST (14-36) U/L Troponin I <0.012 (0.000-0.034) ng/mL Coagulation 10/05/23 Range/Units 12:50 PT 9.9 L (10.0-12.5) sec APTT 23.3 (22.0-30.0) sec CBC 10/05/23 Range/Units 12:50 WBC 14.5 H (3.8-10.6) k/uL RBC 3.72 L (3.80-5.40) m/uL Hgb 11.3 L (11.4-16.0) gm/dL Hct 34.1 (34.0-46.0) % Plt Count 267 (150-450) k/uL Comprehensive Metabolic Panel 10/05/23 Range/Units 12:50 Sodium 137 (137-145) mmol/L Potassium 3.8 (3.5-5.1) mmol/L Chloride 112 H (98-107) mmol/L Carbon Dioxide 18 L (22-30) mmol/L BUN 3 L (7-17) mg/dL Creatinine 0.33 L (0.52-1.04) mg/dL Glucose 104 H (74-99) mg/dL Calcium 9.2 (8.4-10.2) mg/dL AST 19 (14-36) U/L ALT 14 (4-34) U/L Alkaline Phosphatase 96 (38-126) U/L Total Protein 6.8 (6.3-8.2) g/dL Albumin 3.8 (3.5-5.0) g/dL Current Medications Generic Name Dose Route Start Last Admin Trade Name Freq PRN Reason Stop Dose Admin Aspirin 325 mg 10/06/23 09:00 Aspirin 325 Mg Tab PO DAILY TONY Nitroglycerin 0.4 mg 10/05/23 17:35 Nitroglycerin Sl Tabs 0.4 Mg Tab SUBLINGUAL Q5M PRN Chest Pain 10/05/23 12:50 10/05/23 12:50
--- NOTE | 2023-10-06 15:49 | P.HPIM ---
History of Present Illness H&P Date: 10/06/23 Chief Complaint: Heart racing This is a pleasant 28-year-old, who is 30 weeks with her second child. It is a boy. 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 Patient about 3 years ago was seen by Dr. Edna Barney from cardiology for increased heart rate. Did undergo an echocardiogram and a stress test was unremarkable. Yesterday she felt her heart beating fast. Shaking signal palpitations. Heart rate was up to 160. Decided come into the ER. Initial EKG showed sinus tachycardia. This morning doing better. Prior history of hypothyroid. 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 Non-smoker. . Physical examination: VITAL SIGNS: 97.9, 110, 20, 121/92, 97% room air GENERAL: BMI 37.4 up in a chair, comfortable. EYES: Pupils equal. Conjunctiva jovanny l. HEENT: External appearance of nose and ears normal, oral cavity grossly normal. NECK: JVD not raised; masses not palpable. HEART: First and second heart sounds are normal; no edema. LUNGS: Respiratory rate normal; clear to auscultation. ABDOMEN: Soft, nontender, liver spleen not palpable, no masses palpable. Some distention. PSYCH: Alert and oriented x3; mood and affect jovanny l. MUSCULOSKELETAL:No Clubbing/cyanosis;muscles-grossly intact NEUROLOGICAL: Cranial nerves grossly intact; no facial asymmetry, power and sensation grossly intact. LYMPHATICS: No lymph nodes palpable in the axilla and neck INVESTIGATIONS, reviewed in the clinical context: October 04, 2024: White count 14.5 hemoglobin 11.3 platelets 267 sodium 137 potassium 3.8 BUN 3 creatinine 0.33 Troponin I less than 0.012 x 3 TSH 0.860 Free T40.88 EKG tracing personally reviewed by me-sinus tachycardia Chest CTA: Negative for PE Assessment plan -Paroxysmal sinus tachycardia. This was worked up in the past by Dr. Barney. Stress test echocardiogram 3 years ago was unremarkable. Cardiology consulted. They have ordered a 2D echo. I spoke to the pharmacy. Will try propranolol 20 mg every 12 as needed -30 weeks second child Being followed by Dr. Jong Rolle was discussed with the patient. 2D echo ordered by cardiology. Distended patient negative patient can be discharged. Past Medical History Past Medical History: GERD/Reflux, Syncope, Thyroid Disorder Additional Past Medical History / Comment(s): Tachycardia, palpitations, hypothyroid but lab tests normal and no longer on medication for this History of Any Multi-Drug Resistant Organisms: MRSA Date of last positivie culture/infection: 2009 MDRO Source:: buttock Past Surgical History: No Surgical Hx Reported Additional Past Surgical History / Comment(s): wisdom teeth extractions, TTT Past Anesthesia/Blood Transfusion Reactions: No Reported Reaction Past Psychological History: No Psychological Hx Reported Smoking Status: Never smoker Past Alcohol Use History: Rare Past Drug Use History: None Reported - Past Family History Mother Family Medical History: Hyperlipidemia, Osteoarthritis (OA) Additional Family Medical History / Comment(s): Anxiety, depression Father Family Medical History: Hypertension Medications and Allergies Home Medications Medication Instructions Recorded Confirmed Type Vit No.179/Iron/Folic 1 tab PO HS 12/26/21 10/05/23 History [ Tablet] Sodium Chloride [[place]] 1 spray EA NOSTRIL BID 10/05/23 10/05/23 History Unknown Allergy Medication 1 dose PO DAILY 10/05/23 10/05/23 History Allergies Allergy/AdvReac Type Severity Reaction Status Date / Time Sulfa (Sulfonamide Allergy Rash/Hives Verified 10/05/23 13:15 Antibiotics) sulfamethoxazole Allergy Rash/Hives Verified 10/05/23 13:15 [From Bactrim] trimethoprim [From Bactrim] Allergy Rash/Hives Verified 10/05/23 13:15 Physical Exam Vitals: Vital Signs Temp Pulse Pulse Resp BP Pulse Ox 10/06/23 08:44 111 H 18 134/87 97 10/06/23 04:00 97.9 F 97 18 127/89 100 10/06/23 01:26 105 H 18 121/75 97 10/06/23 00:09 95 22 132/80 98 10/05/23 20:27 98.9 F 130 H 18 136/77 97 10/05/23 17:31 105 H 19 134/87 99 10/05/23 14:38 99.6 F 122 H 18 133/78 98 10/05/23 13:05 133 H 10/05/23 11:58 98.6 F 128 H 22 119/76 98 Results CBC & Chem 7: 10/05/23 12:50 10/05/23 12:50 Labs: Abnormal Lab Results - Last 24 Hours (Table) 10/05/23 10/05/23 10/05/23 Range/Units 12:50 12:50 12:50 WBC 14.5 H (3.8-10.6) k/uL RBC 3.72 L (3.80-5.40) m/uL Hgb 11.3 L (11.4-16.0) gm/dL Neutrophils # 11.7 H (1.3-7.7) k/uL PT 9.9 L (10.0-12.5) sec D-Dimer 1.57 H (<0.60) mg/L FEU Chloride 112 H (98-107) mmol/L Carbon Dioxide 18 L (22-30) mmol/L BUN 3 L (7-17) mg/dL Creatinine 0.33 L (0.52-1.04) mg/dL Glucose 104 H (74-99) mg/dL
[2023-10-06 16:45] LABS: Chol/HDL Ratio 5.92 Ratio; LDL Cholesterol,Calculated 128.2 mg/dL (0.0-131.0)
[2023-10-06 18:31] VITALS: RESP 18
[2023-10-06 20:02] VITALS: BP 132/80; PULSE 98; TEMP 98.3
== END 2023-10-06 20:17 | disposition home or self-care (01) ==
LOC: EC 11:46 → 6NMEDSUR 17:35 → 3SCARD 20:48
PROVIDERS: ADMIT Hospitalist; ATTEND Hospitalist
DX: O99.413 Diseases of the circulatory system complicating pregnancy, third trimester (principal); I47.11 Inappropriate sinus tachycardia, so stated; I34.0 Nonrheumatic mitral (valve) insufficiency; O99.283 Endocrine, nutritional and metabolic diseases complicating pregnancy, third trimester; E03.9 Hypothyroidism, unspecified; Z88.1 Allergy status to other antibiotic agents; Z88.2 Allergy status to sulfonamides
CPT/HCPCS: 96360; 96361 ×2; 99285; 36415; 93005 ×2; 85379; 84439; 80061; 80053; 84443 ×2; 83735; 84484; 85025; 85610; 85730; 80306; 71275; G0378 ×3; Q9967

== ENCOUNTER 2023-10-08 15:00 | Emergency (ER) | payer BC ==
[2023-10-08 15:18] VITALS: TEMP 98.3
--- NOTE | 2023-10-08 16:00 | ED ---
Recheck HPI - General Chief Complaint: Shortness of Breath Stated Complaint: SOB,30 Weeks Preg Time Seen by Provider: 10/08/23 15:40 Source: patient, RN notes reviewed, old records reviewed Mode of arrival: ambulatory Limitations: no limitations - History of Present Illness Initial Comments: This is a 28-year-old female to the ER for evaluation. Patient is having a reevaluation of dyspnea in . Recent inpatient hospitalization for this dyspnea she was discharged home and was complaining of shortness of breath especially with exertion. Patient is otherwise no new complaints MD Complaint: other -: days(s) Symptoms Since Prior Visit: no new symptoms Associated Symptoms: none Treatments Prior to Arrival: other (0) - Related Data Home Medications Medication Instructions Recorded Confirmed Vit No.179/Iron/Folic 1 tab PO HS 12/26/21 10/05/23 [ Tablet] Sodium Chloride [[place]] 1 spray EA NOSTRIL BID 10/05/23 10/05/23 Unknown Allergy Medication 1 dose PO DAILY 10/05/23 10/05/23 Previous Rx's Medication Instructions Recorded Propranolol [Inderal] 20 mg PO BID PRN #30 tab 10/07/23 Allergies Allergy/AdvReac Type Severity Reaction Status Date / Time Sulfa (Sulfonamide Allergy Rash/Hives Verified 10/08/23 15:18 Antibiotics) sulfamethoxazole Allergy Rash/Hives Verified 10/08/23 15:18 [From Bactrim] trimethoprim [From Bactrim] Allergy Rash/Hives Verified 10/08/23 15:18 Review of Systems ROS Statement: Those systems with pertinent positive or pertinent negative responses have been documented in the HPI. ROS Other: All systems not noted in ROS Statement are negative. Past Medical History Past Medical History: GERD/Reflux, Syncope, Thyroid Disorder Additional Past Medical History / Comment(s): Tachycardia, palpitations, hypothyroid but lab tests normal and no longer on medication for this History of Any Multi-Drug Resistant Organisms: MRSA Date of last positivie culture/infection: 2009 MDRO Source:: buttock Past Surgical History: No Surgical Hx Reported Additional Past Surgical History / Comment(s): wisdom teeth extractions, TTT Past Anesthesia/Blood Transfusion Reactions: No Reported Reaction Past Psychological History: No Psychological Hx Reported Smoking Status: Never smoker Past Alcohol Use History: Rare Past Drug Use History: None Reported - Past Family History Mother Family Medical History: Hyperlipidemia, Osteoarthritis (OA) Additional Family Medical History / Comment(s): Anxiety, depression Father Family Medical History: Hypertension General Exam Limitations: no limitations General appearance: alert, in no apparent distress, anxious Head exam: Present: atraumatic, normocephalic, normal inspection Eye exam: Present: normal appearance, PERRL, EOMI. Absent: scleral icterus, conjunctival injection, periorbital swelling ENT exam: Present: normal exam, mucous membranes moist Neck exam: Present: normal inspection. Absent: tenderness, meningismus, lymphadenopathy Respiratory exam: Present: normal lung sounds bilaterally. Absent: respiratory distress, wheezes, rales, rhonchi, stridor Cardiovascular Exam: Present: regular rate, normal rhythm, normal heart sounds. Absent: systolic murmur, diastolic murmur, rubs, gallop, clicks GI/Abdominal exam: Present: soft, normal bowel sounds. Absent: distended, tenderness, guarding, rebound, rigid Extremities exam: Present: normal inspection, full ROM, normal capillary refill. Absent: tenderness, pedal edema, joint swelling, calf tenderness Back exam: Present: normal inspection Neurological exam: Present: alert, oriented X3, CN II-XII intact Psychiatric exam: Present: normal affect, normal mood Skin exam: Present: warm, dry, intact, normal color. Absent: rash Course Vital Signs 10/08/23 10/08/23 15:16 17:00 Temperature 98.3 F Pulse Rate 127 H 102 H Respiratory 20 18 Rate Blood Pressure 143/82 118/72 O2 Sat by Pulse 99 98 Oximetry - Reevaluation(s) Reevaluation #1: Medical record is reviewed Reevaluation #2: Patient symptoms unchanged Reevaluation #3: Patient informed of results and questions answered Reevaluation #4: Was pt. sent in by a medical professional or institution (, PA, HAND TIRE TRIMMER, urgent care, hospital, or prison...) When possible be specific @ -no Did you speak to anyone other than the patient for history (EMS, parent, family, police, friend...)? What history was obtained from this source @ -no Did you review nursing and triage notes (agree or disagree)? Why? @ -agree Are old charts reviewed (outside hosp., previous admission, EMS record, old EKG, old radiological studies, urgent care reports/EKG's, prison records)? Report findings @ -yes Differential Diagnosis (chest pain, altered mental status, abdominal pain women, abdominal pain men, vaginal bleeding, weakness, fever, dyspnea, syncope, headache, dizziness, GI bleed, back pain, seizure, CVA, palpatations, mental health, musculoskeletal)? @ -prior EKG interpreted by me (3pts min.). @ -no X-rays interpreted by me (1pt min.). @ -no CT interpreted by me (1pt min.). @ -no U/S interpreted by me (1pt. min.). @ -no What testing was considered but not performed or refused? (CT, X-rays, U/S, labs)? Why? @ -none What meds were considered but not given or refused? Why? @ -none Did you discuss the management of the patient with other professionals (professionals i.e. , PA, HAND TIRE TRIMMER, lab, RT, psych nurse, social security specialist, product tester fiberglass, teacher, global chief experience officer, hospice case manager)? Give summary @ -no Was smoking cessation discussed for >3mins.? @ -no Was critical care preformed (if so, how long)? @ -no Were there social determinants of health that impacted care today? How? (Homelessness, low income, unemployed, alcoholism, drug addiction, transportation, low edu. Level, literacy, decrease access to med. care, fpc, rehab)? @ -none Was there de-escalation of care discussed even if they declined (Discuss DNR or withdrawal of care, Hospice)? DNR status @ -no What co-morbidities impacted this encounter? (DM, HTN, Smoking, COPD, CAD, Cancer, CVA, ARF, Chemo, Hep., AIDS, mental health diagnosis, sleep apnea, morbid obesity)? @ -none Was patient admitted / discharged? Hospital course, mention meds given and route, prescriptions, significant lab abnormalities, going to OR and other pertinent info. @ - 28 female with dyspnea in . Patient is in no acute distress and has no new complaints. Patient is normal pulse oxygenation and can be discharged home Discharge Undiagnosed new problem with uncertain prognosis? @ -no Drug Therapy requiring intensive monitoring for toxicity (Heparin, Nitro, Insulin, Cardizem)? @ -no Were any procedures done? @ -no Diagnosis/symptom? @ -Dyspnea in Acute, or Chronic, or Acute on Chronic? @ -Acute Uncomplicated (without systemic symptoms) or Complicated (systemic symptoms)? @ -Complicated Side effects of treatment? @ -no Exacerbation, Progression, or Severe Exacerbation? @ -exacerbation Poses a threat to life or bodily function? How? (Chest pain, [place], NC, pneumonia, PE, COPD, DKA, ARF, appy, cholecystitis, CVA, Diverticulitis, Homicidal, Suicidal, threat to staff... and all critical care pts) @ -yes dyspnea in dyspnea in Reevaluation #5: Differential Dyspnea: Coronary syndrome, arrhythmia, tamponade, asthma, COPD, pulmonary embolism, pneumonia, pneumothorax, pulmonary effusion, anaphylaxis, diabetic ketoacidosis, flailed chest, pulmonary contusion, diaphragmatic rupture, anemia, neuromuscula r, this is not meant to be an all-inclusive list. Medical Decision Making - Medical Decision Making 28 female with dyspnea in . Patient is in no acute distress and has no new complaints. Patient is normal pulse oxygenation and can be discharged home - EKG Data -: EKG Interpreted by Me (EKG is sinus tachycardia 104 IL 128 QRS 79 QTc 382) Disposition Clinical Impression: Sinus tachycardia, 30 weeks gestation of , Dyspnea Disposition: HOME SELF-CARE Instructions (If sedation given, give patient instructions): Dyspnea (ED) Is patient prescribed a controlled substance at d/c from ED?: No Referrals: Michoacano Brito MD [Primary Care Provider] - 1-2 days Time of Disposition: 16:40
[2023-10-08 17:07] VITALS: BP 118/72; PULSE 102; RESP 18
[2023-10-08] MEDS: SODIUM CHLORIDE 0.9% 1,000 ML IV STA ×2 (17:09)
== END 2023-10-08 17:10 | disposition home or self-care (01) ==
LOC: EC 15:00
DX: O99.413 Diseases of the circulatory system complicating pregnancy, third trimester (principal); R00.0 Tachycardia, unspecified; O99.513 Diseases of the respiratory system complicating pregnancy, third trimester; R06.00 Dyspnea, unspecified; Z88.2 Allergy status to sulfonamides; Z88.1 Allergy status to other antibiotic agents; Z3A.30 30 weeks gestation of pregnancy
CPT/HCPCS: 93005; 99284

== ENCOUNTER 2023-11-21 18:16 | Emergency (ER) | payer BC ==
[2023-11-21 18:26] VITALS: RESP 18; TEMP 97.9
--- NOTE | 2023-11-21 18:59 | ED ---
ENT HPI - General Chief complaint: ENT Stated complaint: 36 wk preg,severe bloody nose Time Seen by Provider: 11/21/23 18:57 Source: patient, RN notes reviewed Mode of arrival: ambulatory Limitations: no limitations - History of Present Illness Initial comments: 28-year-old female approximately 36 weeks gestation presenting to the ER with a chief complaint of epistaxis. Patient reports she was diagnosed with a pyogenic granuloma by Dr. Metz and scheduled for surgical intervention after . She states for the psat couple of days she has been experiencing frequent nose bleeds. She states they typically start on the right side and soon become bilateral with posterior pharynx drainage. She denies any difficulty breathing, chest pain or blood thinner use. Denies any abdominal pain/cramping, vaginal bleeding, or urinary complaints. - Related Data Home Medications Medication Instructions Recorded Confirmed Vit No.179/Iron/Folic 1 tab PO HS 12/26/21 10/05/23 [ Tablet] Sodium Chloride [[place]] 1 spray EA NOSTRIL BID 10/05/23 10/05/23 Unknown Allergy Medication 1 dose PO DAILY 10/05/23 10/05/23 Previous Rx's Medication Instructions Recorded Propranolol [Inderal] 20 mg PO BID PRN #30 tab 10/07/23 Allergies Allergy/AdvReac Type Severity Reaction Status Date / Time Sulfa (Sulfonamide Allergy Rash/Hives Verified 11/21/23 18:26 Antibiotics) sulfamethoxazole Allergy Rash/Hives Verified 11/21/23 18:26 [From Bactrim] trimethoprim [From Bactrim] Allergy Rash/Hives Verified 11/21/23 18:26 Review of Systems ROS Statement: Those systems with pertinent positive or pertinent negative responses have been documented in the HPI. ROS Other: All systems not noted in ROS Statement are negative. Past Medical History Past Medical History: GERD/Reflux, Syncope, Thyroid Disorder Additional Past Medical History / Comment(s): Tachycardia, palpitations, hypot hyroid but lab tests normal and no longer on medication for this History of Any Multi-Drug Resistant Organisms: MRSA Date of last positivie culture/infection: 2009 MDRO Source:: buttock Past Surgical History: No Surgical Hx Reported Additional Past Surgical History / Comment(s): wisdom teeth extractions, TTT Past Anesthesia/Blood Transfusion Reactions: No Reported Reaction Past Psychological History: No Psychological Hx Reported Smoking Status: Never smoker Past Alcohol Use History: Rare Past Drug Use History: None Reported - Past Family History Mother Family Medical History: Hyperlipidemia, Osteoarthritis (OA) Additional Family Medical History / Comment(s): Anxiety, depression Father Family Medical History: Hypertension General Exam Limitations: no limitations General appearance: alert, in no apparent distress Eye exam: Present: normal appearance, PERRL, EOMI. Absent: scleral icterus, conjunctival injection, periorbital swelling ENT exam: Present: normal exam, normal oropharynx, mucous membranes moist, other (Right nostril nearly occluded. No active bleeding. No nasal bone tenderness. Left nostril patent.) Neck exam: Present: normal inspection. Absent: tenderness, meningismus, lymphadenopathy Respiratory exam: Present: normal lung sounds bilaterally. Absent: respiratory distress, wheezes, rales, rhonchi, stridor Cardiovascular Exam: Present: normal rhythm, tachycardia, normal heart sounds GI/Abdominal exam: Present: other (Gravid abdomen) Skin exam: Present: warm, dry, intact, normal color. Absent: rash Course Vital Signs 11/21/23 11/21/23 18:24 20:59 Temperature 97.9 F Pulse Rate 133 H 134 H Respiratory 18 18 Rate Blood Pressure 137/83 134/80 O2 Sat by Pulse 100 98 Oximetry Medical Decision Making - Medical Decision Making Was pt. sent in by a medical professional or institution (ÓSCAR Orozco, DIE TESTER, urgent care, hospital, or half-way...) When possible be specific @ -No Did you speak to anyone other than the patient for history (EMS, parent, family, police, friend...)? What history was obtained from this source @ -No Did you review nursing and triage notes (agree or disagree)? Why? @ -I reviewed and agree with nursing and triage notes Were old charts reviewed (outside hosp., previous admission, EMS record, old EKG, old radiological studies, urgent care reports/EKG's, half-way records)? Report findings @ -No old charts were reviewed Differential Diagnosis (chest pain, altered mental status, abdominal pain women, abdominal pain men, vaginal bleeding, weakness, fever, dyspnea, syncope, headache, dizziness, GI bleed, back pain, seizure, CVA, palpatations, mental health, musculoskeletal)? @ -Epistaxis, nasal bone fracture, septal hematoma, foreign body... this list is not meant to be all-inclusive. EKG interpreted by me (3pts min.). @ -As above X-rays interpreted by me (1pt min.). @ -None done CT interpreted by me (1pt min.). @ -None done U/S interpreted by me (1pt. min.). @ -None done What testing was considered but not performed or refused? (CT, X-rays, U/S, labs)? Why? @ -None What meds were considered but not given or refused? Why? @ -None Did you discuss the management of the patient with other professionals (professionals i.e. DrTeressa, PA, DIE TESTER, lab, RT, psych nurse, hospital social worker, product mgmt dev manager, teacher, community reinvestment act officer, rehabilitation caseworker)? Give summary @ -No Was smoking cessation discussed for >3mins.? @ -No Was critical care preformed (if so, how long)? @ -No Were there social determinants of health that impacted care today? How? (Homelessness, low income, unemployed, alcoholism, drug addiction, t ransportation, low edu. Level, literacy, decrease access to med. care, alf, rehab)? @ -No Was there de-escalation of care discussed even if they declined (Discuss DNR or withdrawal of care, Hospice)? DNR status @ -No What co-morbidities impacted this encounter? (DM, HTN, Smoking, COPD, CAD, Cance r, CVA, ARF, Chemo, Hep., AIDS, mental health diagnosis, sleep apnea, morbid obesity)? @ - Was patient admitted / discharged? Hospital course, mention meds given and route, prescriptions, significant lab abnormalities, going to OR and other pertinent info. @ -Discharge. 28-year-old female presented to the ER with a chief complaint of epistaxis. Patient was seen by Dr. Olguin recently and diagnosed with a pyogenic granuloma. Surgical intervention is not scheduled until after childbirth. History and physical exam completed. Vitals stable. Exam remarkable for a nearly occluded right nostril from lateral aspect of nose. No evidence of septal hematoma. No active bleeding. Patient in no signs of acute distress and nontoxic-appearing. Laboratory studies will be obtained to rule out anemia. Hemoglobin stable at 10.3 (Hgb 11.3 on 10-05-2023). Otherwise labs unimpressive. Upon reevaluation, patient resting comfortably in exam room. Patient reports no repeat bleeding. I advised close follow-up with Dr. Olguin. Strict return parameters discussed. Patient discharged stable condition. Patient verbally expressed understanding agree with care plan. Case discussed with ED attending, Dr. Cevallos. Undiagnosed new problem with uncertain prognosis? @ -No Drug Therapy requiring intensive monitoring for toxicity (Heparin, Nitro, Insulin, Cardizem)? @ -No Were any procedures done? @ -No Diagnosis/symptom? @ -Epistaxis Acute, or Chronic, or Acute on Chronic? @ -Acute Uncomplicated (without systemic symptoms) or Complicated (systemic symptoms)? @ -Uncomplicated Side effects of treatment? @ -No Exacerbation, Progression, or Severe Exacerbation? @ -No Poses a threat to life or bodily function? How? (Chest pain, [place], MT, pneumonia, PE, COPD, DKA, ARF, appy, cholecystitis, CVA, Diverticulitis, Homicidal, Suicidal, threat to staff... and all critical care pts) @ -No - Lab Data Result diagrams: 11/21/23 19:02 11/21/23 19:02 Lab Results 11/21/23 11/21/23 11/21/23 Range/Units 19:02 19:02 19:02 WBC 13.4 H (3.8-10.6) k/uL RBC 3.40 L (3.80-5.40) m/uL Hgb 10.3 L (11.4-16.0) gm/dL Hct 30.7 L (34.0-46.0) % MCV 90.4 (80.0-100.0) fL MCH 30.4 (25.0-35.0) pg MCHC 33.7 (31.0-37.0) g/dL RDW 14.2 (11.5-15.5) % Plt Count 318 (150-450) k/uL MPV 8.5 Neutrophils % 76 % Lymphocytes % 16 % Monocytes % 6 % Eosinophils % 1 % Basophils % 0 % Neutrophils # 10.3 H (1.3-7.7) k/uL Lymphocytes # 2.2 (1.0-4.8) k/uL Monocytes # 0.8 (0-1.0) k/uL Eosinophils # 0.1 (0-0.7) k/uL Basophils # 0.0 (0-0.2) k/uL Hypochromasia Slight PT 9.6 L (10.0-12.5) sec INR 0.8 (<1.2) APTT 21.9 L (22.0-30.0) sec Sodium 137 (137-145) mmol/L Potassium 3.7 (3.5-5.1) mmol/L Chloride 109 H (98-107) mmol/L Carbon Dioxide 19 L (22-30) mmol/L Anion Gap 9 mmol/L BUN 5 L (7-17) mg/dL Creatinine 0.40 L (0.52-1.04) mg/dL Est GFR (CKD-EPI)AfAm >90 (>60 ml/min/1.73 sqM) Est GFR (CKD-EPI)NonAf >90 (>60 ml/min/1.73 sqM) Glucose 95 (74-99) mg/dL Calcium 8.9 (8.4-10.2) mg/dL Total Bilirubin 0.4 (0.2-1.3) mg/dL AST 23 (14-36) U/L ALT 14 (4-34) U/L Alkaline Phosphatase 154 H (38-126) U/L Total Protein 6.4 (6.3-8.2) g/dL Albumin 3.6 (3.5-5.0) g/dL - EKG Data -: EKG Interpreted by [facility] EKG Comments: EKG taken at 18: 46 showing sinus tachycardia with no acute ST segment or T wave abnormalities. Normal axis. Ventricular rate 127, AL interval 142, QRS duration 74, QT/QTc 291/366. Disposition Clinical Impression: Epistaxis Disposition: HOME SELF-CARE Condition: Stable Instructions (If sedation given, give patient instructions): Nosebleed (ED) Additional Instructions: Follow-up with Dr. Metz. Return to the ER for any new or worsening symptoms. Is patient prescribed a controlled substance at d/c from ED?: No Referrals: Michoacano Brito MD [Primary Care Provider] - 1-2 days Enio Metz MD [STAFF PHYSICIAN] - 1-2 days Time of Disposition: 20:29
[2023-11-21 19:18] LABS: Basophils % (A) 0 %; Eosinophils # (A) 0.1 k/uL (0-0.7); Eosinophils % (A) 1 %; HCT 30.7 % (34.0-46.0); HGB 10.3 gm/dL (11.4-16.0); Hypochromasia Slight; Lymphocytes # (A) 2.2 k/uL (1.0-4.8); Lymphocytes % (A) 16 %; MCH 30.4 pg (25.0-35.0); MCHC 33.7 g/dL (31.0-37.0); MCV 90.4 fL (80.0-100.0); Mean Platelet Volume 8.5; Monocytes # (A) 0.8 k/uL (0-1.0); Monocytes % (A) 6 %; Neutrophils # (A) 10.3 k/uL (1.3-7.7); Neutrophils % (A) 76 %; Platelet Count 318 k/uL (150-450); RDW 14.2 % (11.5-15.5); WBC 13.4 k/uL (3.8-10.6)
[2023-11-21 19:28] LABS: ALT 14 U/L (4-34); AST 23 U/L (14-36); African American GFR (CKD) >90 (>60 ml/min/1.73 sqM); Albumin 3.6 g/dL (3.5-5.0); Alkaline Phosphatase 154 U/L (38-126); Anion Gap 9 mmol/L; Blood Urea Nitrogen 5 mg/dL (7-17); Calcium 8.9 mg/dL (8.4-10.2); Carbon Dioxide 19 mmol/L (22-30); Chloride 109 mmol/L (98-107); Glucose 95 mg/dL (74-99); Non-African American GFR(CKD) >90 (>60 ml/min/1.73 sqM); Potassium 3.7 mmol/L (3.5-5.1); Sodium 137 mmol/L (137-145); Total Bilirubin 0.4 mg/dL (0.2-1.3); Total Protein 6.4 g/dL (6.3-8.2)
[2023-11-21 19:38] LABS: INR 0.8 (<1.2); Prothrombin Time 9.6 sec (10.0-12.5)
[2023-11-21 19:57] LABS: Partial Thromboplastin Time 21.9 sec (22.0-30.0)
[2023-11-21 21:01] VITALS: BP 134/80; PULSE 134
== END 2023-11-21 21:10 | disposition home or self-care (01) ==
LOC: EC 18:16
DX: O99.413 Diseases of the circulatory system complicating pregnancy, third trimester (principal); R04.0 Epistaxis; Z88.2 Allergy status to sulfonamides; Z88.1 Allergy status to other antibiotic agents; Z3A.36 36 weeks gestation of pregnancy
CPT/HCPCS: 36415; 80053; 85025; 85610; 85730; 93005; 99283

== ENCOUNTER 2023-11-28 12:26 | Emergency (ER) | payer BC ==
[2023-11-28 12:32] VITALS: RESP 18
[2023-11-28] MEDS: OXYMETAZOLINE 0.05% NASL SPRAY 1 SPRAY BOTTLE NASAL STA (13:28)
[2023-11-28 13:51] LABS: Basophils % (A) 0 %; Eosinophils # (A) 0.1 k/uL (0-0.7); Eosinophils % (A) 0 %; HCT 29.6 % (34.0-46.0); HGB 9.7 gm/dL (11.4-16.0); Hypochromasia Slight; Lymphocytes # (A) 1.9 k/uL (1.0-4.8); Lymphocytes % (A) 14 %; MCH 29.8 pg (25.0-35.0); MCHC 32.6 g/dL (31.0-37.0); MCV 91.5 fL (80.0-100.0); Mean Platelet Volume 8.5; Monocytes # (A) 0.7 k/uL (0-1.0); Monocytes % (A) 5 %; Neutrophils # (A) 11.4 k/uL (1.3-7.7); Neutrophils % (A) 80 %; Platelet Count 365 k/uL (150-450); RBC 3.24 m/uL (3.80-5.40); RDW 14.4 % (11.5-15.5); WBC 14.1 k/uL (3.8-10.6)
[2023-11-28 14:00] LABS: ALT 13 U/L (4-34); AST 24 U/L (14-36); African American GFR (CKD) >90 (>60 ml/min/1.73 sqM); Albumin 3.3 g/dL (3.5-5.0); Alkaline Phosphatase 147 U/L (38-126); Anion Gap 6 mmol/L; Blood Urea Nitrogen 5 mg/dL (7-17); Calcium 8.8 mg/dL (8.4-10.2); Carbon Dioxide 17 mmol/L (22-30); Chloride 113 mmol/L (98-107); Glucose 93 mg/dL (74-99); Non-African American GFR(CKD) >90 (>60 ml/min/1.73 sqM); Potassium 3.9 mmol/L (3.5-5.1); Sodium 136 mmol/L (137-145); Total Bilirubin 0.4 mg/dL (0.2-1.3); Total Protein 6.1 g/dL (6.3-8.2)
[2023-11-28 14:08] LABS: INR 0.9 (<1.2); Partial Thromboplastin Time 22.5 sec (22.0-30.0); Prothrombin Time 9.9 sec (10.0-12.5)
[2023-11-28] MEDS ORDERED: PHENYLEPHRINE 0.25% NASAL SPRA 1 SPRAY/ML NASAL STA (14:20)
[2023-11-28] MEDS ORDERED: TRANEXAMIC ACID 2,000 MG in SODIUM CHLORIDE 0.9% 100 ML IRRIGATION ONE (14:41)
--- NOTE | 2023-11-28 15:16 | ED ---
ENT HPI - General Chief complaint: ENT Stated complaint: 37 weeks , nose bleeding Time Seen by Provider: 11/28/23 13:25 Source: patient, RN notes reviewed Mode of arrival: ambulatory Limitations: no limitations - History of Present Illness Initial comments: This is a 28-year-old female who presents to the emergency department for a nosebleed. Patient is 37 weeks and and has a pyogenic granuloma in the nose. Follows with Dr. Metz and there is plan for surgical intervention after she delivers. States that the bleeding started again about an hour prior to arrival. States that she is coughing up blood clots as a result. Denies any pelvic pain or vaginal bleeding. Reports regular movement. MD complaint: epistaxis - Related Data Home Medications Medication Instructions Recorded Confirmed Vit No.179/Iron/Folic 1 tab PO HS 12/26/21 11/28/23 [ Tablet] Sodium Chloride [[place]] 1 spray EA NOSTRIL BID 10/05/23 11/28/23 Loratadine [Claritin] 10 mg PO DAILY 11/28/23 11/28/23 Allergies Allergy/AdvReac Type Severity Reaction Status Date / Time Sulfa (Sulfonamide Allergy Rash/Hives Verified 11/28/23 12:32 Antibiotics) sulfamethoxazole Allergy Rash/Hives Verified 11/28/23 12:32 [From Bactrim] trimethoprim [From Bactrim] Allergy Rash/Hives Verified 11/28/23 12:32 Review of Systems ROS Statement: Those systems with pertinent positive or pertinent negative responses have been documented in the HPI. ROS Other: All systems not noted in ROS Statement are negative. Past Medical History Past Medical History: GERD/Reflux, Syncope, Thyroid Disorder Additional Past Medical History / Comment(s): Tachycardia, palpitations, hypothyroid but lab tests normal and no longer on medication for this History of Any Multi-Drug Resistant Organisms: MRSA Date of last positivie culture/infection: 2009 MDRO Source:: buttock Past Surgical History: No Surgical Hx Reported Additional Past Surgical History / Comment(s): wisdom teeth extractions, TTT Past Anesthesia/Blood Transfusion Reactions: No Reported Reaction Past Psychological History: No Psychological Hx Reported Smoking Status: Never smoker Past Alcohol Use History: Rare Past Drug Use History: None Reported - Past Family History Mother Family Medical History: Hyperlipidemia, Osteoarthritis (OA) Additional Family Medical History / Comment(s): Anxiety, depression Father Family Medical History: Hypertension General Exam Limitations: no limitations General appearance: alert, in no apparent distress Head exam: Present: atraumatic, normocephalic, normal inspection ENT exam: Present: other (Active bleeding from the bilateral nares.) Respiratory exam: Present: normal lung sounds bilaterally. Absent: respiratory distress, wheezes, rales, rhonchi, stridor Cardiovascular Exam: Present: regular rate, normal rhythm, normal heart sounds. Absent: systolic murmur, diastolic murmur, rubs, gallop, clicks Neurological exam: Present: alert, oriented X3, CN II-XII intact Psychiatric exam: Present: normal affect, normal mood Skin exam: Present: warm, dry, intact, normal color. Absent: rash Course Vital Signs 11/28/23 11/28/23 11/28/23 12:28 15:11 16:14 Temperature 98.2 F Pulse Rate 124 H 137 H 133 H Respiratory 18 18 18 Rate Blood Pressure 123/75 100/63 122/82 O2 Sat by Pulse 100 99 100 Oximetry 11/28/23 11/28/23 16:15 16:18 Temperature 97.4 F L Pulse Rate 130 H 114 H Respiratory 18 18 Rate Blood Pressure 122/82 122/81 O2 Sat by Pulse 100 100 Oximetry Medical Decision Making - Medical Decision Making This is a 28 year old female who presents to the emergency department for a nosebleed. Was pt. sent in by a medical professional or institution? @ -No Did you speak to anyone other than the patient for history? @ -No Did you review nursing and triage notes? @ -Yes, and I agree, it is accurate with regards to the patient's symptoms. Were old charts reviewed? @ -No Differential Diagnosis? @ -Differential Epistaxis: Injury, coagulopathy, granuloma, allergic rhinitis, is not meant to be an all- inclusive list. EKG interpreted by me (3pts min.)? @ -Not obtained X-rays interpreted by me (1pt min.)? @ -Not obtained CT interpreted by me (1pt min.)? @ -Not obtained U/S interpreted by me (1pt. min.)? @ -Not obtained What testing was considered but not performed? (CT, X-rays, U/S, labs)? Why? @ -None What meds were considered but not given? Why? @ -None Did you discuss the management of the patient with other professionals? @ -No Did you reconcile home meds? @ -No Was smoking cessation discussed for >3mins.? @ -No Was critical care preformed (if so, how long)? @ -No Were there social determinants of health that impacted care today? How? (Homelessness, low income, unemployed, alcoholism, drug addiction, transporta tion, low edu. Level, literacy, decrease access to med. care, fci, rehab)? @ -No Was there de-escalation of care discussed even if they declined? (Discuss DNR or withdrawal of care, Hospice)? @ -No What co-morbidities impacted this encounter? (DM, HTN, Smoking, COPD, CAD, Cancer, CVA, Hep., AIDS, mental health diagnosis, sleep apnea, morbid obesity)? @ -, pyogenic granuloma Was patient admitted / discharged? @ -Lab work demonstrates a hemoglobin of 9.7, which is decreased when compared with 10.3 1 week ago. Oxymetazoline nasal spray was applied and her nose was clamped for approximately 20 minutes. She continued to have bleeding that did end up resolving on its own without additional intervention. Patient started to feel somewhat lightheaded and woozy and had a syncopal episode. OB nurses came down to perform an NST and noted 3-minute decelerations. She proceeded to have a second syncopal episode as well. Given the syncopal episodes with decelerations, OB nurses spoke with on-call MECHANICAL MANUFACTURING ENGINEER, Dr. Forde. Decision was made to send the patient up to the MECHANICAL MANUFACTURING ENGINEER floor for urgent delivery. Patient was discharged from the emergency department in stable condition with resolution of epistaxis and taken immediately upstairs to family [facility]. Case discussed with ED attending, Dr. Baez. Undiagnosed new problem with uncertain prognosis? @ -None Drug Therapy requiring intensive monitoring for toxicity (Heparin, Nitro, Insulin, Cardizem)? @ -None Were any procedures done? @ -None Diagnosis/symptom? @ -Epistaxis, decelerations Acute, or Chronic, or Acute on Chronic? @ -Acute Uncomplicated (without systemic symptoms) or Complicated (systemic symptoms)? @ -Complicated Side effects of treatment? @ -None Exacerbation, Progression, or Severe Exacerbation] @ -Not applicable Poses a threat to life or bodily function? @ -The epistaxis is not life-threatening at this time. The decelerations do pose a threat to the life of mother and baby. - Lab Data Result diagrams: 11/28/23 13:42 11/28/23 13:42 Lab Results 11/28/23 11/28/23 11/28/23 Range/Units 13:42 13:42 13:42 WBC 14.1 H (3.8-10.6) k/uL RBC 3.24 L (3.80-5.40) m/uL Hgb 9.7 L (11.4-16.0) gm/dL Hct 29.6 L (34.0-46.0) % MCV 91.5 (80.0-100.0) fL MCH 29.8 (25.0-35.0) pg MCHC 32.6 (31.0-37.0) g/dL RDW 14.4 (11.5-15.5) % Plt Count 365 (150-450) k/uL MPV 8.5 Neutrophils % 80 % Lymphocytes % 14 % Monocytes % 5 % Eosinophils % 0 % Basophils % 0 % Neutrophils # 11.4 H (1.3-7.7) k/uL Lymphocytes # 1.9 (1.0-4.8) k/uL Monocytes # 0.7 (0-1.0) k/uL Eosinophils # 0.1 (0-0.7) k/uL Basophils # 0.0 (0-0.2) k/uL Hypochromasia Slight PT 9.9 L (10.0-12.5) sec INR 0.9 (<1.2) APTT 22.5 (22.0-30.0) sec Sodium 136 L (137-145) mmol/L Potassium 3.9 (3.5-5.1) mmol/L Chloride 113 H (98-107) mmol/L Carbon Dioxide 17 L (22-30) mmol/L Anion Gap 6 mmol/L BUN 5 L (7-17) mg/dL Creatinine 0.35 L (0.52-1.04) mg/dL Est GFR (CKD-EPI)AfAm >90 (>60 ml/min/1.73 sqM) Est GFR (CKD-EPI)NonAf >90 (>60 ml/min/1.73 sqM) Glucose 93 (74-99) mg/dL POC Glucose (mg/dL) (70-110) mg/dL POC Glu Building Maintenance Mechanic ID Calcium 8.8 (8.4-10.2) mg/dL Total Bilirubin 0.4 (0.2-1.3) mg/dL AST 24 (14-36) U/L ALT 13 (4-34) U/L Alkaline Phosphatase 147 H (38-126) U/L Total Protein 6.1 L (6.3-8.2) g/dL Albumin 3.3 L (3.5-5.0) g/dL 11/28/23 Range/Units 16:07 WBC (3.8-10.6) k/uL RBC (3.80-5.40) m/uL Hgb (11.4-16.0) gm/dL Hct (34.0-46.0) % MCV (80.0-100.0) fL MCH (25.0-35.0) pg MCHC (31.0-37.0) g/dL RDW (11.5-15.5) % Plt Count (150-450) k/uL MPV Neutrophils % % Lymphocytes % % Monocytes % % Eosinophils % % Basophils % % Neutrophils # (1.3-7.7) k/uL Lymphocytes # (1.0-4.8) k/uL Monocytes # (0-1.0) k/uL Eosinophils # (0-0.7) k/uL Basophils # (0-0.2) k/uL Hypochromasia PT (10.0-12.5) sec INR (<1.2) APTT (22.0-30.0) sec Sodium (137-145) mmol/L Potassium (3.5-5.1) mmol/L Chloride (98-107) mmol/L Carbon Dioxide (22-30) mmol/L Anion Gap mmol/L BUN (7-17) mg/dL Creatinine (0.52-1.04) mg/dL Est GFR (CKD-EPI)AfAm (>60 ml/min/1.73 sqM) Est GFR (CKD-EPI)NonAf (>60 ml/min/1.73 sqM) Glucose (74-99) mg/dL POC Glucose (mg/dL) 93 (70-110) mg/dL POC Glu Building Maintenance Mechanic ID Debi Mata Calcium (8.4-10.2) mg/dL Total Bilirubin (0.2-1.3) mg/dL AST (14-36) U/L ALT (4-34) U/L Alkaline Phosphatase (38-126) U/L Total Protein (6.3-8.2) g/dL Albumin (3.5-5.0) g/dL Disposition Clinical Impression: Epistaxis, Syncope, heart deceleration Disposition: HOME SELF-CARE Instructions (If sedation given, give patient instructions): Nosebleed (ED) Is patient prescribed a controlled substance at d/c from ED?: No Referrals: Michoacano Brito MD [Primary Care Provider] - 1-2 days Time of Disposition: 16:14
[2023-11-28 16:09] LABS: Glucose,Whole Blood 93 mg/dL (70-110)
[2023-11-28 16:17] VITALS: TEMP 97.4
[2023-11-28] MEDS: TRANEXAMIC ACID 1,000 MG/10 ML VIAL MISCELLANE ONE (16:18)
[2023-11-28 16:19] VITALS: BP 122/81; PULSE 114
== END 2023-11-28 16:23 | disposition home or self-care (01) ==
LOC: EC 12:26
DX: O36.8330 Maternal care for abnormalities of the fetal heart rate or rhythm, third trimester, not applicable or unspecified (principal); O99.891 Other specified diseases and conditions complicating pregnancy; R04.0 Epistaxis; O99.513 Diseases of the respiratory system complicating pregnancy, third trimester; R55 Syncope and collapse; Z88.2 Allergy status to sulfonamides; Z88.1 Allergy status to other antibiotic agents; Z3A.37 37 weeks gestation of pregnancy
CPT/HCPCS: 36415; 80053; 85025; 85610; 85730; 99283

== ENCOUNTER 2023-11-28 16:30 | Inpatient (IN) | payer BC ==
[2023-11-28] MEDS: CITRIC ACID-SODIUM CITRATE 15 ML CUP PO ONE (16:45)
[2023-11-28] MEDS ORDERED: CARBOPROST TROMETHAMINE 250 MCG/ML 1 ML AMP IM PRN (16:48)
[2023-11-28] MEDS ORDERED: TRANEXAMIC 1,000 MG/100ML-NACL 1,000 MG in EMPTY BAG 1 BAG IV PRN (16:48)
[2023-11-28] MEDS ORDERED: miSOPROStoL 200 MCG TAB PO PRN (16:48)
[2023-11-28] MEDS ORDERED: OXYTOCIN 10 UNIT/ML 1 ML VIAL IM PRN (16:48)
[2023-11-28] MEDS ORDERED: METHYLERGONOVINE 0.2 MG/ML 1 ML AMP IM PRN (16:48)
[2023-11-28] MEDS ORDERED: MORPHINE SULFATE (PF) 0.3 MG/0.3 ML SYR ONE (16:51)
[2023-11-28] MEDS ORDERED: DEXAMETHASONE SOD PHOSPHATE 4 MG/ML 1 ML VIAL ONE (16:51)
[2023-11-28] MEDS ORDERED: OXYTOCIN 30 UNITS/500 ML NS BAG IV ONE (16:51)
[2023-11-28] MEDS ORDERED: ONDANSETRON 4 MG/2 ML VIAL ONE (16:51)
[2023-11-28] MEDS ORDERED: NALBUPHINE 10 MG/ML (10 ML MDV) ONE (16:51)
[2023-11-28] MEDS ORDERED: fentaNYL (PF) 50 MCG/ML 2 ML AMP ONE (16:51)
[2023-11-28] MEDS ORDERED: PHENYLEPHRINE-0.9% NACL SYG 1,000 MCG/10 ML SYRINGE ONE (16:51)
[2023-11-28] MEDS ORDERED: OXYTOCIN 30 UNITS/500 ML NS 30 UNIT in SALINE 1 500ML.BAG IV SCH (17:00)
--- NOTE | 2023-11-28 17:41 | P.HPOB ---
History of Present Illness H&P Date: 11/28/23 Chief Complaint: IUP at 37-3/7 weeks, nonreassuring status, epistaxis This is a 28-year-old 2 para 1 at 37-3/7 weeks that presents to the emergency department with epistaxis. Patient has a known nasal granuloma and has been seeing ENT, patient has had multiple episodes of bleeding. Patient has had 2 + episodes of syncope in the ER, hemoglobin in the ED 9.7 down from 10.3 on a prior visit last week. Patient does note good movement. Patient states has been complicated by tachycardia which she has seen cardiology, in addition to nasal granuloma for which she is seeing ENT as stated above. Patient does note good movement. She denies contractions. OB was consulted for Doppler of heart tones, given her gestational age nonstress test was performed. 3-minute deceleration to the 60s was appreciated with return to baseline. Following that a late deceleration was appreciated. Decision was made at this time to transfer care to labor and delivery for urgent section. On blood work this patient has a blood type of a positive, rubella status immune, RPR is nonreactive, hepatitis B surface engine is negative, HIV negative, group beta strep culture is negative. She did decline her Tdap. She passed her 1 hour GDS, 97 PILATES COORDINATOR history #1 December/2021 viable male 7 pounds 13 ounces, spontaneous vaginal delivery #2 current Review of Systems Constitutional: Reports fatigue, Denies chills, Denies fever Ears, nose, mouth and throat: Reports as per HPI, Denies headache Cardiovascular: Reports leg edema, Reports lightheadedness Respiratory: Denies dyspnea Gastrointestinal: Reports nausea, Reports vomiting Genitourinary: Reports Past Medical History Past Medical History: GERD/Reflux, Syncope, Thyroid Disorder Additional Past Medical History / Comment(s): Tachycardia, palpitations, hypothyroid but lab tests normal and no longer on medication for this History of Any Multi-Drug Resistant Organisms: MRSA Date of last positivie culture/infection: 2009 MDRO Source:: buttock Past Surgical History: No Surgical Hx Reported Additional Past Surgical History / Comment(s): wisdom teeth extractions, TTT Past Anesthesia/Blood Transfusion Reactions: No Reported Reaction Past Psychological History: No Psychological Hx Reported Smoking Status: Never smoker Past Alcohol Use History: Rare Past Drug Use History: None Reported - Past Family History Mother Family Medical History: Hyperlipidemia, Osteoarthritis (OA) Additional Family Medical History / Comment(s): Anxiety, depression Father Family Medical History: Hypertension Medications and Allergies Home Medications Medication Instructions Recorded Confirmed Type Vit No.179/Iron/Folic 1 tab PO HS 12/26/21 10/05/23 History [ Tablet] Sodium Chloride [[place]] 1 spray EA NOSTRIL BID 10/05/23 10/05/23 History Unknown Allergy Medication 1 dose PO DAILY 10/05/23 10/05/23 History Propranolol [Inderal] 20 mg PO BID PRN #30 tab 10/07/23 Rx Allergies Allergy/AdvReac Type Severity Reaction Status Date / Time Sulfa (Sulfonamide Allergy Rash/Hives Verified 11/28/23 12:32 Antibiotics) sulfamethoxazole Allergy Rash/Hives Verified 11/28/23 12:32 [From Bactrim] trimethoprim [From Bactrim] Allergy Rash/Hives Verified 11/28/23 12:32 Exam Osteopathic Statement: *. No significant issues noted on an osteopathic structural exam other than those noted in the History and Physical/Consult. Targeted physical exam is performed this date General this is all female with dried blood over her nares, face, chest, gown, patient appears stable, breathing is noted to be nonlabored, abdomen is noted to be gravid, heart tones are noted to be cat 2 Assessment and Plan (1) 37 or more weeks gestation of Current Visit: Yes Status: Acute Code(s): BYQ2641 - SNOMED Code(s): 75320125 (2) Epistaxis Current Visit: No Status: Acute Code(s): R04.0 - EPISTAXIS SNOMED Code(s): 288910256 (3) heart deceleration Current Visit: No Status: Acute Code(s): PPB3005 - SNOMED Code(s): 649899782 (4) Sinus tachycardia Current Visit: No Status: Acute Code(s): R00.0 - TACHYCARDIA, UNSPECIFIED SNOMED Code(s): 26597205 (5) Syncope Current Visit: No Status: Acute Code(s): R55 - SYNCOPE AND COLLAPSE SNOMED Code(s): 055494710
--- NOTE | 2023-11-28 17:44 | P.OP ---
Date of Procedure: 11/28/23 Preoperative Diagnosis: IUP at 37 3/7 weeks, epistaxis. Nonreassuring status Postoperative Diagnosis: Same, plus port wine amniotic fluid noted after delivery of the infant Procedure(s) Performed: Primary low-transverse section Anesthesia: spinal Surgeon: Angelia Forde Tank Builder Helper #1: Leigh Hawkins Estimated Blood Loss (ml): 244 IV fluids (ml): 1,000 Urine output (ml): 200 (Clear yellow) Pathology: other Condition: stable Disposition: observation Indications for Procedure: 28-year-old G2, P1 at 37-3/7 weeks presents to the ER with complaints of epistaxis, patient has been dealing with this throughout the . 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 Patient has noted nausea and vomiting secondary to the bleeding. NST was performed in the emergency department, 3-minute deceleration to the 60s was appreciated. Upon further monitoring patient had a contraction where a late deceleration was appreciated. Patient was counseled on status and need for urgent delivery. Patient stated understanding informed consent was obtained from patient and patient's mom. Operative Findings: Viable male delivered at 1709, weight of 8 pounds 2 ounces, Apgars of 8 and 9 at 1 and 5 minutes respectively. Description of Procedure: The patient was prepped and draped in the usual fashion after spinal anesthesia was administered by the anesthesia department. A Pfannenstiel incision was made and extended of the abdominal cavity without difficulty. A 2 cm incision was made in the transverse plane of the lower uterine segment to enter the uterus at which time clear fluid was noted. The incision was extended in both directions bluntly. The head was encountered within the field and delivered up and through the incision where the nose and mouth were thoroughly suctioned. Port wine fluid was noted during delivery of the . Remainder of the was delivered onto the surgical field where the cord was doubly clamped, cut, and the infant was passed for resuscitative measures with weight and Apgars as noted above. The placenta was delivered manually, intact, and was grossly normal with a grossly normal three-vessel cord. The uterus was exteriorized and the interior cavity of the uterus swept of any remaining placental and membranous fragments with a laparotomy sponge. The margins of the incision were grasped with Alvares clamps and the incision closed in 2 layers. First layer was a running locking layer of 0 Vicryl from margin to margin followed by a second layer of imbricating 0 Vicryl from margin to margin. Any small points of bleeding were then made hemostatic with the Bovie. Once hemostasis was achieved, the posterior cul-de-sac was suctioned with a guard and the uterine and ovarian findings are as noted above. The uterus was replaced within the abdominal cavity and the gutters swept of any remaining blood fluid or clot. The incision was again reexamined and hemostasis was noted to be excellent. Any small point of bleeding were made hemostatic with the Bovie. Once hemostasis was achieved the parietal peritoneum was loosely reapproximated. The layer of muscles were examined and made hemostatic with the Bovie. Attention was then turned to the fascia which was closed with 2 running stitches of 0 Vicryl proceeding from the lateral margins to the midpoint. The subcutaneous tissues were irrigated, made hemostatic with the Bovie, and reapproximated with a running stitch of 30 Vicryl. The skin was reapproximated with 4-0 Vicryl. E stimated blood loss for the case was approximately 244 mL. All sponge instrument and needle counts are correct. There were no complications. The patient tolerated the procedure well and proceeded to the recovery room in stable condition. Both mother and infant are resting comfortably in recovery.
[2023-11-28] MEDS ORDERED: PROPRANOLOL 20 MG TAB PO PRN (17:45)
[2023-11-28 17:49] LABS: Basophils % (A) 0 %; Eosinophils % (A) 0 %; HCT 25.9 % (34.0-46.0); HGB 8.3 gm/dL (11.4-16.0); Hypochromasia Moderate; Lymphocytes # (A) 1.9 k/uL (1.0-4.8); Lymphocytes % (A) 11 %; MCH 29.8 pg (25.0-35.0); MCHC 32.1 g/dL (31.0-37.0); MCV 92.8 fL (80.0-100.0); Mean Platelet Volume 8.6; Monocytes # (A) 0.5 k/uL (0-1.0); Monocytes % (A) 3 %; Neutrophils # (A) 15.1 k/uL (1.3-7.7); Neutrophils % (A) 86 %; Platelet Count 335 k/uL (150-450); RBC 2.79 m/uL (3.80-5.40); RDW 14.5 % (11.5-15.5); WBC 17.6 k/uL (3.8-10.6)
[2023-11-28] MEDS ORDERED: SIMETHICONE 80 MG CHEWABLE PO PRN (19:02)
[2023-11-28] MEDS ORDERED: METOCLOPRAMIDE 5 MG/ML 2 ML VIAL IVP PRN (19:02)
[2023-11-28] MEDS ORDERED: ZOLPIDEM 5 MG TAB PO PRN (19:02)
[2023-11-28] MEDS ORDERED: ONDANSETRON 4 MG/2 ML VIAL IVP PRN (19:02)
[2023-11-28] MEDS ORDERED: diphenhydrAMINE 25 MG CAP PO PRN (19:02)
[2023-11-28] MEDS ORDERED: diphenhydrAMINE 50 MG CAP PO PRN (19:02)
[2023-11-28] MEDS ORDERED: NALOXONE 0.4 MG/ML 1 ML VIAL IV PRN (19:02)
[2023-11-28] MEDS ORDERED: diphenhydrAMINE 50 MG/ML 1 ML VIAL IVP PRN ×2 (19:02)
[2023-11-28] MEDS: FAMOTIDINE 20 MG/2 ML VIAL IV STA (19:03)
[2023-11-28] MEDS: ACETAMINOPHEN IV (For NPO) 1,000 MG in EMPTY BAG 1 BAG IVPB SCH (19:13)
[2023-11-28] MEDS: LACTATED RINGERS 1,000 ML IV SCH ×2 (19:13→19:58)
[2023-11-28] MEDS: SENNOSIDES-DOCUSATE SODIUM 1 EACH TAB PO SCH (19:14)
[2023-11-28] MEDS: SODIUM CHLORIDE 0.65% NASAL SPRAY 44 ML BTL INTRANASAL SCH (19:43)
[2023-11-28] MEDS: ACETAMINOPHEN TAB 500 MG TAB PO SCH (20:01)
[2023-11-29] MEDS: PRENATAL VIT-IRON-FOLIC ACID 1 EACH TABLET PO SCH (00:06)
[2023-11-29] MEDS: IBUPROFEN 600 MG TAB PO SCH (00:06)
[2023-11-29] MEDS: IBUPROFEN IV 800 MG in SODIUM CHLORIDE 0.9% 250 ML IV SCH (00:34)
[2023-11-29 06:50] LABS: Basophils % (A) 0 %; Eosinophils % (A) 0 %; HCT 24.9 % (34.0-46.0); HGB 7.9 gm/dL (11.4-16.0); Hypochromasia Moderate; Lymphocytes # (A) 2.4 k/uL (1.0-4.8); Lymphocytes % (A) 11 %; MCH 29.8 pg (25.0-35.0); MCHC 31.9 g/dL (31.0-37.0); MCV 93.6 fL (80.0-100.0); Mean Platelet Volume 9.6; Monocytes # (A) 1.3 k/uL (0-1.0); Monocytes % (A) 6 %; Neutrophils # (A) 17.3 k/uL (1.3-7.7); Neutrophils % (A) 82 %; Platelet Count 354 k/uL (150-450); RBC 2.66 m/uL (3.80-5.40); RDW 14.4 % (11.5-15.5); WBC 21.2 k/uL (3.8-10.6)
--- NOTE | 2023-11-29 10:38 | P.PNOBGPC ---
Subjective - Subjective Principal diagnosis: S/P 1*LTCS POD #1 Interval history: Patient seen and examined. Denies nausea, vomiting, chest pain, shortness of breath or calf pain. Patient reports: Reports appetite normal, Reports voiding normally, Reports pain well controlled, Reports ambulating normally : doing well Objective - Vital Signs Latest vital signs: Vital Signs Temp Pulse Resp BP Pulse Ox 11/29/23 08:00 98.9 F 64 16 118/74 99 11/29/23 04:31 98.6 F 81 18 125/52 11/28/23 21:41 98.7 F 78 16 124/56 11/28/23 19:41 76 16 119/56 100 11/28/23 19:26 96.6 F L 89 16 112/57 100 11/28/23 19:11 97.7 F 99 16 108/59 100 11/28/23 18:56 91 17 109/61 100 11/28/23 18:41 86 17 110/60 99 11/28/23 18:26 87 17 120/72 100 11/28/23 18:21 134 H 18 132/88 91 L 11/28/23 18:11 76 17 115/66 100 11/28/23 17:56 95 17 100 11/28/23 17:36 96.6 F L 100 17 118/59 100 Intake and Output 11/28/23 11/29/23 11/29/23 22:59 06:59 14:59 Intake Total 2500 450 Output Total 1754 250 Balance 746 450 -250 Intake: IV 1000 Oral 1500 450 Output: Urine 400 250 Emesis 800 Output, Quantitative 554 Blood Loss Other: Voiding Method Indwelling Catheter # Voids 1 Weight 89.811 kg - Exam Lungs: bilateral: normal Chest: Normal S1, Normal S2 Extremities: Present: normal Abdomen: Present: normal appearance, soft. Absent: distention, tenderness Incision: Present: normal, dry, intact Uterus: Present: normal, firm - Labs Labs: Abnormal Lab Results - Last 24 Hours (Table) 11/28/23 11/29/23 Range/Units 17:00 06:29 WBC 17.6 H 21.2 H (3.8-10.6) k/uL RBC 2.79 L 2.66 L (3.80-5.40) m/uL Hgb 8.3 L 7.9 L (11.4-16.0) gm/dL Hct 25.9 L 24.9 L (34.0-46.0) % Neutrophils # 15.1 H 17.3 H (1.3-7.7) k/uL Monocytes # 1.3 H (0-1.0) k/uL Assessment and Plan (1) Status post primary low transverse section Current Visit: Yes Status: Acute Code(s): Z98.891 - HISTORY OF UTERINE SCAR FROM PREVIOUS SURGERY SNOMED Code(s): 802737277 Plan: 1. cont postoperative care
--- NOTE | 2023-11-29 11:35 | P.PN ---
Progress Note - Text Progress Note Date: 11/29/23 post op day one status post C/S under spinal anesthesia , intrathecal morphine given for post op analgesia , pateints doing well , pain well ,controlled , no headache , vital signs stable , there is no anesthesia related complications
[2023-11-30 08:36] VITALS: RESP 16
--- NOTE | 2023-11-30 12:46 | P.DS ---
Providers Date of admission: 11/28/23 16:30 Expected date of discharge: 11/30/23 Attending physician: Ammy Sunshine Primary care physician: Stated None - Discharge Diagnosis(es) (1) Status post primary low transverse section Current Visit: Yes Status: Acute Hospital Course: Presented with an acute nose bleed from nasal polyp that she has been dealing with. She had a drop in hemoglobin some syncopal episodes and category 2 heart tones. So primary section was done. Postoperative course has been uneventful. She denies nausea, vomiting, chest pain, shortness of breath or calf pain. Her hemoglobin is 7.9. She denies dizziness or headache upon standing. Incision is clean, dry, intact. Patient will be discharged home pos toperative day #2 in stable condition to follow-up with me in 2 weeks and to follow-up with Dr. Zhu as soon as possible. Plan - Discharge Summary New Discharge Prescriptions: No Action Vit No.179/Iron/Folic [ Tablet] 1 tab PO HS Sodium Chloride [[employer] Villare[employer] Naches] 1 spray EA NOSTRIL BID Loratadine [Claritin] 10 mg PO DAILY Discharge Medication List Vit No.179/Iron/Folic [ Tablet] 1 tab PO HS 12/26/21 [History] Sodium Chloride [J.[employer]. Villareal Naches] 1 spray EA NOSTRIL BID 10/05/23 [History] Loratadine [Claritin] 10 mg PO DAILY 11/28/23 [History] Follow up Appointment(s)/Referral(s): Ammy Sunshine DO [Doctor of Osteopathic Medicine] - 12/10/23 12:00 pm (Post Appointment 01-10-2024 at 1:30pm) Discharge Disposition: HOME SELF-CARE
[2023-11-30 17:05] VITALS: BP 120/81; PULSE 95; TEMP 99.2
--- NOTE | 2023-12-01 13:16 | CDI ---
Documentation Clarification Form Date: 12/01/2023 12:53:00 PM From: Corinne Hooper Admit Date: 11/28/2023 04:30:00 PM Patient Name: Camila Aranda Visit Number: [id number] Discharge Date: 11/30/2023 05:40:00 PM ATTENTION: The Clinical Documentation Specialists (CDI) and [facility] Coding Staff appreciate your assistance in clarifying documentation. Please respond to the clarification below the line at the bottom and electronically sign. The CDI & [facility] Coding staff will review the response and follow-up if needed. Please note: Queries are made part of the Legal Health Record. If you have any questions, please contact the author of this message via ITS. Doctor/Provider: Ammy Sunshine Your patient has a hemoglobin/hematocrit level of 8.3/25.9 on 11/28/23 Please clarify if there is an additional diagnosis and/or clinical significance related to these lab values. Per your discharge summary 11/30/23 the patient presented with an acute nose bleed from a nasal polyp that she has been dealing with. She had a drop in hemoglobin with syncopal episodes and category 2 heart tones. So primary section was done History/Risk Factors: patient is a 28 year old 2 para 1. She is 37 weeks . She has a history of a nasal granuloma, GERD, syncope, hypothyroidism, tachycardia, and palpitations. Clinical indicators: per Dr Neal History and Physical 11/28/23 patient presented to the emergency department with epistaxis. 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 She has had multiple episodes of bleeding. She had 2+ episodes in the ER, hemoglobin in the ED 9.7 down from 10.3 on prior visit a week ago. Doppler was performed with a 3 minute deceleration to the 60s was appreciated with return to baseline. Following that a late deceleration was appreciated. Decision was made to proceed with an urgent section. HGB 11/27 8.3, 11/28 7.9 HCT 11/27 25.9, 11/28 24.9 Treatment: patient agreed to proceed with urgent section, / iron supplement on d.c Is there an additional diagnosis and/or clinical significance related to the above lab result/information secondary to the epistaxis due to nasal granuloma: [x ] Acute blood loss anemia [ ] Acute on chronic blood loss anemia [ ] Chronic blood loss anemia [ ] No additional diagnosis/Not clinically significant [ ] Unable to determine [ ] Other, please specify MTDD
== END 2023-11-30 17:40 | disposition home or self-care (01) | DRG 787 ==
LOC: 4FBP 16:30
PROVIDERS: ADMIT Obstetrics & Gynecology Obstetrics; ATTEND Obstetrics & Gynecology
PROC: 10D00Z1 Extraction of Products of Conception, Low, Open Approach (ICD-10-PCS; principal; 2023-11-28 17:00)
DX: O76 Abnormality in fetal heart rate and rhythm complicating labor and delivery (principal); D62 Acute posthemorrhagic anemia; O99.62 Diseases of the digestive system complicating childbirth; K21.9 Gastro-esophageal reflux disease without esophagitis; O99.284 Endocrine, nutritional and metabolic diseases complicating childbirth; E03.9 Hypothyroidism, unspecified; O41.8X30 Other specified disorders of amniotic fluid and membranes, third trimester, not applicable or unspecified; O99.892 Other specified diseases and conditions complicating childbirth; O99.02 Anemia complicating childbirth; R00.0 Tachycardia, unspecified; R04.0 Epistaxis; J33.9 Nasal polyp, unspecified; Z28.310 Unvaccinated for COVID-19; Z88.2 Allergy status to sulfonamides; Z86.14 Personal history of Methicillin resistant Staphylococcus aureus infection; Z79.899 Other long term (current) drug therapy; Z3A.37 37 weeks gestation of pregnancy; Z37.0 Single live birth
CPT/HCPCS: 85025; 86850; 86900; 86901; 88307

== ENCOUNTER 2024-02-09 06:19 | Day surgery (SDC) | payer BC ==
[2024-02-03 12:04] VITALS: BMI 33.0
[~2024-02-09 06:19] MED LIST changes: -BEBTELOVIMAB (EUA) 175 MG/2 ML VIAL IV ONE; +HYDROmorphone 0.5 MG/0.5 ML SYRINGE IVP PRN; +LIDOCAINE 1% (10MG/ML) FOR IV START INTRADERMA PRN; +MIDAZOLAM 2 MG/2 ML VIAL IV PRN; -SODIUM CHLORIDE 0.9% 500 ML 500 ML in EMPTY BAG 1 BAG IV PRN; +fentaNYL (PF) 50 MCG/ML 2 ML AMP IVP PRN
[2024-02-09] MEDS: OXYMETAZOLINE 0.05% NASL SPRAY 1 SPRAY BOTTLE EA NOSTRIL PRN (06:49)
[2024-02-09] MEDS: LACTATED RINGERS 1,000 ML IV SCH (07:02)
[2024-02-09] MEDS: IV FLUID CONTINUATION 1,000 ML IV ONE (07:03)
[2024-02-09] MEDS: ONDANSETRON 4 MG/2 ML VIAL IVP ONE (07:06)
[2024-02-09] MEDS: DEXAMETHASONE SOD PHOSPHATE 4 MG/ML 1 ML VIAL IV ONE (07:07)
[2024-02-09] MEDS: FAMOTIDINE 20 MG/2 ML VIAL IV PRN (07:08)
[2024-02-09] MEDS ORDERED: LIDOCAINE 4% LTA KIT (4 ML) TOPICAL ONE (07:19)
[2024-02-09] MEDS ORDERED: MIDAZOLAM 2 MG/2 ML VIAL ONE (07:19)
[2024-02-09] MEDS ORDERED: PROPOFOL 10 MG/ML 20 ML VIAL IV ONE (07:19)
[2024-02-09] MEDS ORDERED: PHENYLEPHRINE 10 MG/ML VIAL ONE (07:19)
[2024-02-09] MEDS ORDERED: fentaNYL (PF) 50 MCG/ML 2 ML AMP ONE (07:19)
[2024-02-09] MEDS ORDERED: SUCCINYLCHOLINE CHLORIDE 200 MG/10 ML VIAL IV ONE (07:19)
[2024-02-09] MEDS ORDERED: LIDOCAINE 1% INJ 10MG/ML (20 ML MDV) ONE (07:19)
[2024-02-09] MEDS: LIDOCAINE 1%-EPI 1:100,000 20 ML VIAL SUBMUCOSAL ONE ×2 (07:38)
--- NOTE | 2024-02-09 07:56 | P.OP ---
Date of Procedure: 02/09/24 Preoperative Diagnosis: right nasal septal lesion with recurrent epistaxis Postoperative Diagnosis: same Procedure(s) Performed: right nasal endoscopy with excision of right nasal septal lesion and selective cauterization Anesthesia: [id number] Surgeon: Enio Metz Estimated Blood Loss (ml): 1 Pathology: other (right nasal septal lesion) Condition: stable Disposition: PACU Indications for Procedure: this 29-year-old white female has recurrent epistaxis. She was noted to have a right nasal septal lesion previously.she did not have this removed during her but now has delivered her baby Operative Findings: pedunculated vascular appearing lesion arising from the right anterior superior nasal septum approximate 12 mm Description of Procedure: the patient was brought in the operative suite and placed in a supine position. The patient underwent induction of general anesthesia with oral endotracheal intubation without difficulty. The patient was prepped and draped in usual aseptic fashion. 1% lidocaine with 1-100,000 epinephrine was infused submucosally at the base of the lesion and was left to work for 7 minutes vasoconstrictive effect. The lesion was excised from the underlying nasal septum down to the perichondrium grossly entirely. The base of the resection was cauterized with suction cautery at a setting of 12. Excellent hemostasis was noted. A small pledget of standard nasal pore nasal dressing was placed over the wound. The hemostasis remained good. The patient was then allowed to emerge from general anesthesia having tolerated procedure well was extubated in the operating suite and transferred to postop recovery area in satisfactory condition.
[2024-02-09 08:20] VITALS: TEMP 96.9
[2024-02-09 08:37] VITALS: RESP 18
[2024-02-09 09:29] VITALS: BP 128/73; PULSE 83
== END 2024-02-09 09:36 | disposition home or self-care (01) ==
LOC: OR 06:19
PROVIDERS: ATTEND Otolaryngology
CPT/HCPCS: 88305; 88307

== ENCOUNTER 2024-09-18 15:20 | Emergency (ER) | payer BC ==
--- NOTE | 2024-09-18 15:52 | ED ---
General Adult HPI - General Source: patient, RN notes reviewed Mode of arrival: ambulatory Limitations: no limitations <Shobha Willis - Last Filed: 09/18/24 15:50> - General Source: patient, family, RN notes reviewed, old records reviewed <Son Cevallos - Last Filed: 09/18/24 18:07> - General Chief complaint: Shortness of Breath Stated complaint: Cough,SOB Time Seen by Provider: 09/18/24 15:38 - History of Present Illness Initial comments: Quick [id number] female with no reported medical conditions presenting to the emergency room with referral from urgent care to rule out pulmonary embolism. Patient states that she has been having a cough for the past 3 days. She has been experiencing pain in her ribs and begin experience difficulty breathing today. She denies history of DVT, PE, recent travel, recent surgeries, contraceptive use, swelling in her calves/pain. (Shobha Willis) 29-year-old female presents emergency department complaining of cough, congestion, chest tightness, ongoing since Wednesday. Does have a history of chronic thrush and she has noticed that as well. Workup started in triage as a quick note. I evaluated the patient after she was placed in a room. Was referred here to rule out PE from urgent care. Has no other acute complaints at this time. Presents for further evaluation. I evaluated her after workup was completed. (Son Cevallos) - Related Data Home Medications Medication Instructions Recorded Confirmed Vit No.179/Iron/Folic 1 tab PO HS 12/26/21 02/03/24 [ Tablet] Cetirizine HCl [Zyrtec] 10 mg PO DAILY 02/03/24 02/03/24 Previous Rx's Medication Instructions Recorded Albuterol Inhaler [Ventolin Hfa 1 - 2 puff INHALATION Q6H PRN #1 09/18/24 Inhaler] each Azithromycin [Zithromax] 250 mg PO DAILY 4 Days #4 tab 09/18/24 Nystatin 100,000 Unit/ml Susp 4 ml PO QID 7 Days #100 ml 09/18/24 [Mycostatin Oral Susp] Allergies Allergy/AdvReac Type Severity Reaction Status Date / Time Sulfa (Sulfonamide Allergy Rash/Hives Verified 09/18/24 15:27 Antibiotics) sulfamethoxazole Allergy Rash/Hives Verified 09/18/24 15:27 [From Bactrim] trimethoprim [From Bactrim] Allergy Rash/Hives Verified 09/18/24 15:27 Review of Systems ROS Other: All systems not noted in ROS Statement are negative. <Shobha Willis - Last Filed: 09/18/24 15:50> ROS Other: All systems not noted in ROS Statement are negative. <Son Cevallos - Last Filed: 09/18/24 18:07> ROS Statement: Those systems with pertinent positive or pertinent negative responses have been documented in the HPI. Review of Systems: CONST: Denies fever EYES: Denies blurry vision ENT: Endorses nasal congestion C/V: Denies Chest pain RESP: Endorses cough GI: Denies abdominal pain : Denies dysuria SKIN: Denies rash. MSK: Denies joint pain. NEURO: Denies headache (Son Cevallos) Past Medical History Past Medical History: GERD/Reflux, Hyperlipidemia, Syncope, Thyroid Disorder Additional Past Medical History / Comment(s): Tachycardia, palpitations, hx hypothyroid - labs normal now and no longer on medication, hx migraines. History of Any Multi-Drug Resistant Organisms: MRSA Date of last positivie culture/infection: 2009 MDRO Source:: buttock Past Surgical History: Section Additional Past Surgical History / Comment(s): [place] teeth extractions. Past Anesthesia/Blood Transfusion Reactions: No Reported Reaction Past Psychological History: Anxiety Smoking Status: Never smoker Past Alcohol Use History: None Reported Past Drug Use History: None Reported - Past Family History Mother Family Medical History: Hyperlipidemia, Osteoarthritis (OA) Additional Family Medical History / Comment(s): Anxiety, depression. Father Family Medical History: Hypertension <Shobha Willis - Last Filed: 09/18/24 15:50> General Exam Limitations: no limitations <Shobha Willis - Last Filed: 09/18/24 15:50> <Son Cevallos - Last Filed: 09/18/24 18:07> - General Exam Comments Initial Comments: Visual Physical Exam Vital signs reviewed General: Well-appearing, nontoxic, no acute distress. Head: Normocephalic, atraumatic Eyes: PERRLA, EOMI ENT: Airway patent Chest: Nonlabored breathing Skin: No visual rash, normal skin tone Neuro: Alert and oriented 3 Musculoskeletal: No gross abnormalities (Shobha Willis) General: Appears in no acute distress. HEAD: Normal with no signs of head trauma. EYES: EOMI. ENT: Hearing grossly intact. Patient has oral thrush. RESPIRATORY: Central wheezing. No significant peripheral wheezing. No hypoxia. No increased work of breathing. C/V: Regular rate and rhythm. S1 and S2 auscultated, no edema, peripheral pulses 2+ and intact throughout ABD: Abd is soft, nontender, nondistended EXT: No obvious deformity. SKIN: No rashes or lesions observed on exposed skin. NEURO: Alert and oriented x 4. (Son Cevallos) Course Vital Signs 09/18/24 15:23 Temperature 98.0 F Pulse Rate 110 H Respiratory 22 Rate Blood Pressure 145/102 O2 Sat by Pulse 100 Oximetry Medical Decision Making <Shobha Willis - Last Filed: 09/18/24 15:50> - Lab Data Result diagrams: 09/18/24 16:36 09/18/24 16:36 - EKG Data -: EKG Interpreted by Me <Son Cevallos - Last Filed: 09/18/24 18:07> - Medical Decision Making I completed the quick note portion of this chart signed Shobha Willis PA-C (Shobha Willis) Was pt. sent in by a medical professional or institution (ÓSCAR Orozco, PRINTING PRESS MACHINIST, urgent c are, hospital, or custodial...) When possible be specific @ -Sent by urgent care for further evaluation. Sent to rule out PE. Did you speak to anyone other than the patient for history (EMS, parent, family, police, friend...)? What history was obtained from this source @ -No Did you review nursing and triage notes (agree or disagree)? Why? @ -I reviewed and agree with nursing and triage notes Were old charts reviewed (outside hosp., previous admission, EMS record, old EKG, old radiological studies, urgent care reports/EKG's, custodial records)? Report findings @ -No old charts were reviewed Differential Diagnosis (chest pain, altered mental status, abdominal pain women, abdominal pain men, vaginal bleeding, weakness, fever, dyspnea, syncope, headache, dizziness, GI bleed, back pain, seizure, CVA, palpatations, mental health, musculoskeletal)? @ -COVID, flu, RSV, pneumonia. This list is not all inclusive. EKG interpreted by me (3pts min.). @ -As above X-rays interpreted by me (1pt min.). @ -Chest x-ray reveals no obvious acute cardiopulmonary process. CT interpreted by me (1pt min.). @ -None done U/S interpreted by me (1pt. min.). @ -None done What testing was considered but not performed or refused? (CT, X-rays, U/S, labs)? Why? @ -None What meds were considered but not given or refused? Why? @ -None Did you discuss the management of the patient with other professionals (professionals i.e. , PA, PRINTING PRESS MACHINIST, lab, RT, psych nurse, social sciences lecturer, upkeep worker, teacher, geospatial program management officer, watch case polisher)? Give summary @ -No Was smoking cessation discussed for >3mins.? @ -No Was critical care preformed (if so, how long)? @ -No Were there social determinants of health that impacted care today? How? (Homelessness, low income, unemployed, alcoholism, drug addiction, transportation, low edu. Level, literacy, decrease access to med. care, intermediate, rehab)? @ -No Was there de-escalation of care discussed even if they declined (Discuss DNR or withdrawal of care, Hospice)? DNR status @ -No What co-morbidities impacted this encounter? (DM, HTN, Smoking, COPD, CAD, Canc er, CVA, ARF, Chemo, Hep., AIDS, mental health diagnosis, sleep apnea, morbid obesity)? @ -None Was patient admitted / discharged? Hospital course, mention meds given and route, prescriptions, significant lab abnormalities, going to OR and other pertinent info. @ -Patient has chronic oral thrush. Presents for URI symptoms. Sent by urgent care to rule out PE. When I evaluate the patient, workup has been completed. Chest x-ray shows no obvious acute cardiopulmonary process. EKG unremarkable. Laboratory studies remarkable for D-dimer that is within normal limits. Troponin is undetectable. Viral swabs negative. Remainder the labs unremarkable. PE has been ruled out with normal D-dimer. Vital signs are within acceptable limits. I updated the patient on the results of her workup. No further workup required at this time. Seems she has tracheobronchitis. She will be empirically administered antibiotics as well as a dose of IV steroid. Will discharge home with azithromycin for tracheobronchitis as well as an albuterol inhaler. She was in agreement this plan. Strict return precautions discussed. Patient also given a prescription for nystatin for her oral thrush which is chronic for the patient. I instructed the patient to follow up with their PCP in the next 1-3 days. I explained that the patient should return to the emergency department if they experience any worsening symptoms. Strict return precautions were discussed with the patient. The patient expressed understanding of these instructions. I answered all questions that the patient had. The patient was discharged home in good condition with their prescriptions and follow up information. Undiagnosed new problem with uncertain prognosis? @ -No Drug Therapy requiring intensive monitoring for toxicity (Heparin, Nitro, Insulin, Cardizem)? @ -No Were any procedures done? @ -No Diagnosis/symptom? @ -Tracheobronchitis, oral thrush Acute, or Chronic, or Acute on Chronic? @ -Acute, chronic Uncomplicated (without systemic symptoms) or Complicated (systemic symptoms)? @ -Uncomplicated Side effects of treatment? @ -No Exacerbation, Progression, or Severe Exacerbation? @ -No Poses a threat to life or bodily function? How? (Chest pain, [place], [place], pneumonia, PE, COPD, DKA, ARF, appy, cholecystitis, CVA, Diverticulitis, Homicidal, Suicidal, threat to staff... and all critical care pts) @ -Unlikely at this time (Son Cevallos) - Lab Data Lab Results 09/18/24 09/18/24 09/18/24 Range/Units 16:36 16:36 16:36 WBC 7.69 (4.50-10.00) 10*3/uL RBC 4.65 (4.10-5.20) 10*6/uL Hgb 14.8 (12.0-15.0) g/dL Hct 42.3 (37.2-46.3) % MCV 91.0 (80.0-97.0) fL MCH 31.8 (27.0-32.0) pg MCHC 35.0 (32.0-37.0) g/dL Plt Count 265 (140-440) 10*3/uL MPV 9.7 (9.5-12.2) fL Immature Gran % (Auto) 0.1 % Neutrophils % 63.6 % Lymphocytes % 25.5 % Monocytes % 9.4 % Eosinophils % 1.0 % Basophils % 0.4 % Immature Gran # 0.01 (0.00-0.04) 10*3/uL Neutrophils # 4.89 (1.80-7.70) 10*3/uL Lymphocytes # 1.96 (0.90-5.00) 10*3/uL Monocytes # 0.72 (0.20-1.00) 10*3/uL Eosinophils # 0.08 (0.04-0.35) 10*3/uL Basophils # 0.03 (0.00-0.10) 10*3/uL PT 10.3 (10.0-12.5) sec INR 0.9 (<1.2) APTT 24.5 (22.0-30.0) sec D-Dimer 0.43 (<0.60) mg/L FEU Sodium (137-145) mmol/L Potassium (3.5-5.1) mmol/L Chloride (98-107) mmol/L Carbon Dioxide (22-30) mmol/L Anion Gap mmol/L BUN (7-17) mg/dL Creatinine (0.52-1.04) mg/dL Est GFR (CKD-EPI)AfAm (>60 ml/min/1.73 sqM) Est GFR (CKD-EPI)NonAf (>60 ml/min/1.73 sqM) Glucose (74-99) mg/dL Calcium (8.4-10.2) mg/dL Total Bilirubin (0.2-1.3) mg/dL AST (14-36) U/L ALT (4-34) U/L Alkaline Phosphatase (38-126) U/L Troponin I (0.000-0.034) ng/mL Total Protein (6.3-8.2) g/dL Albumin (3.5-5.0) g/dL Urine Color Colorless Urine Appearance Clear (Clear) Urine pH 7.0 (5.0-8.0) Ur Specific [place] 1.002 (1.001-1.035) Urine Protein Negative (Negative) Urine Glucose (UA) Negative (Negative) Urine Ketones Negative (Negative) Urine Blood Negative (Negative) Urine Nitrite Negative (Negative) Urine Bilirubin Negative (Negative) Urine Urobilinogen <2.0 (<2.0) mg/dL Ur Leukocyte Esterase Trace H (Negative) Urine RBC 1 (0-5) /hpf Urine WBC 13 H (0-5) /hpf Ur Squamous Epith Cells 1 (0-4) /hpf Urine HCG, Qual (Not Detectd) Influenza Type A (PCR) (Not Detectd) Influenza Type B (PCR) (Not Detectd) RSV (PCR) (Not Detectd) SARS-CoV-2 (PCR) (Not Detectd) 09/18/24 09/18/24 09/18/24 Range/Units 16:36 16:36 16:36 WBC (4.50-10.00) 10*3/uL RBC (4.10-5.20) 10*6/uL Hgb (12.0-15.0) g/dL Hct (37.2-46.3) % MCV (80.0-97.0) fL MCH (27.0-32.0) pg MCHC (32.0-37.0) g/dL Plt Count (140-440) 10*3/uL MPV (9.5-12.2) fL Immature Gran % (Auto) % Neutrophils % % Lymphocytes % % Monocytes % % Eosinophils % % Basophils % % Immature Gran # (0.00-0.04) 10*3/uL Neutrophils # (1.80-7.70) 10*3/uL Lymphocytes # (0.90-5.00) 10*3/uL Monocytes # (0.20-1.00) 10*3/uL Eosinophils # (0.04-0.35) 10*3/uL Basophils # (0.00-0.10) 10*3/uL PT (10.0-12.5) sec INR (<1.2) APTT (22.0-30.0) sec D-Dimer (<0.60) mg/L FEU Sodium 138 (137-145) mmol/L Potassium 3.7 (3.5-5.1) mmol/L Chloride 105 (98-107) mmol/L Carbon Dioxide 21 L (22-30) mmol/L Anion Gap 12 mmol/L BUN 11 (7-17) mg/dL Creatinine 0.64 (0.52-1.04) mg/dL Est GFR (CKD-EPI)AfAm >90 (>60 ml/min/1.73 sqM) Est GFR (CKD-EPI)NonAf >90 (>60 ml/min/1.73 sqM) Glucose 90 (74-99) mg/dL Calcium 10.4 H (8.4-10.2) mg/dL Total Bilirubin 0.4 (0.2-1.3) mg/dL AST 44 H (14-36) U/L ALT 53 H (4-34) U/L Alkaline Phosphatase 93 (38-126) U/L Troponin I <0.012 (0.000-0.034) ng/mL Total Protein 7.8 (6.3-8.2) g/dL Albumin 4.7 (3.5-5.0) g/dL Urine Color Urine Appearance (Clear) Urine pH (5.0-8.0) Ur Specific [place] (1.001-1.035) Urine Protein (Negative) Urine Glucose (UA) (Negative) Urine Ketones (Negative) Urine Blood (Negative) Urine Nitrite (Negative) Urine Bilirubin (Negative) Urine Urobilinogen (<2.0) mg/dL Ur Leukocyte Esterase (Negative) Urine RBC (0-5) /hpf Urine WBC (0-5) /hpf Ur Squamous Epith Cells (0-4) /hpf Urine HCG, Qual Not Detected (Not Detectd) Influenza Type A (PCR) (Not Detectd) Influenza Type B (PCR) (Not Detectd) RSV (PCR) (Not Detectd) SARS-CoV-2 (PCR) (Not Detectd) 09/18/24 Range/Units 16:36 WBC (4.50-10.00) 10*3/uL RBC (4.10-5.20) 10*6/uL Hgb (12.0-15.0) g/dL Hct (37.2-46.3) % MCV (80.0-97.0) fL MCH (27.0-32.0) pg MCHC (32.0-37.0) g/dL Plt Count (140-440) 10*3/uL MPV (9.5-12.2) fL Immature Gran % (Auto) % Neutrophils % % Lymphocytes % % Monocytes % % Eosinophils % % Basophils % % Immature Gran # (0.00-0.04) 10*3/uL Neutrophils # (1.80-7.70) 10*3/uL Lymphocytes # (0.90-5.00) 10*3/uL Monocytes # (0.20-1.00) 10*3/uL Eosinophils # (0.04-0.35) 10*3/uL Basophils # (0.00-0.10) 10*3/uL PT (10.0-12.5) sec INR (<1.2) APTT (22.0-30.0) sec D-Dimer (<0.60) mg/L FEU Sodium (137-145) mmol/L Potassium (3.5-5.1) mmol/L Chloride (98-107) mmol/L Carbon Dioxide (22-30) mmol/L Anion Gap mmol/L BUN (7-17) mg/dL Creatinine (0.52-1.04) mg/dL Est GFR (CKD-EPI)AfAm (>60 ml/min/1.73 sqM) Est GFR (CKD-EPI)NonAf (>60 ml/min/1.73 sqM) Glucose (74-99) mg/dL Calcium (8.4-10.2) mg/dL Total Bilirubin (0.2-1.3) mg/dL AST (14-36) U/L ALT (4-34) U/L Alkaline Phosphatase (38-126) U/L Troponin I (0.000-0.034) ng/mL Total Protein (6.3-8.2) g/dL Albumin (3.5-5.0) g/dL Urine Color Urine Appearance (Clear) Urine pH (5.0-8.0) Ur Specific [place] (1.001-1.035) Urine Protein (Negative) Urine Glucose (UA) (Negative) Urine Ketones (Negative) Urine Blood (Negative) Urine Nitrite (Negative) Urine Bilirubin (Negative) Urine Urobilinogen (<2.0) mg/dL Ur Leukocyte Esterase (Negative) Urine RBC (0-5) /hpf Urine WBC (0-5) /hpf Ur Squamous Epith Cells (0-4) /hpf Urine HCG, Qual (Not Detectd) Influenza Type A (PCR) Not Detected (Not Detectd) Influenza Type B (PCR) Not Detected (Not Detectd) RSV (PCR) Not Detected (Not Detectd) SARS-CoV-2 (PCR) Not Detected (Not Detectd) - EKG Data EKG Comments: 12-lead Electrocardiogram Interpretation Note EKG was reviewed and interpreted by myself. 12-lead ECG performed at 1625 is interpreted by me as revealing normal sinus rhythm at a rate of 97 beats per minute. [place] is normal. LA interval is 142 ms, QRS duration 78 ms, QTc is 392 ms.. There were no ST or T wave abnormalities to suggest myocardial ischemia or injury. R wave progression across the precordium was delayed y. By my interpretation this EKG is non-diagnostic for acute ischemia. (Son Cevallos) Disposition <Shobha Willis - Last Filed: 09/18/24 15:50> Is patient prescribed a controlled substance at d/c from ED?: No Time of Disposition: 17:56 <Son Cevallos - Last Filed: 09/18/24 18:07> Clinical Impression: Tracheobronchitis, Thrush, oral Disposition: HOME SELF-CARE Condition: Good Instructions (If sedation given, give patient instructions): Oral Candidiasis (ED), Acute Bronchitis (ED) Prescriptions: Nystatin 100,000 Unit/ml Susp [Mycostatin Oral Susp] 4 ml PO QID 7 Days #100 ml Albuterol Inhaler [Ventolin Hfa Inhaler] 1 - 2 puff INHALATION Q6H PRN #1 each PRN Reason: Dyspnea Azithromycin [Zithromax] 250 mg PO DAILY 4 Days #4 tab Referrals: Michoacano Brito MD [Primary Care Provider] - 1-2 days
--- NOTE | 2024-09-18 16:03 | XR ---
EXAMINATION TYPE: XR chest 2V DATE OF EXAM: 09/18/2024 CLINICAL INDICATION: Female, 29 years old with history of cough, AMAN, TECHNIQUE: Frontal and lateral views of the chest are obtained. COMPARISON: Chest x-ray May 24, 2019 FINDINGS: There is no focal air space opacity, pleural effusion, or pneumothorax seen. The cardiac silhouette size is stable and within normal limits. The osseous structures are intact. IMPRESSION: No acute cardiopulmonary process. [facility], , 09/18/2024 4:01 PM
[2024-09-18 16:46] LABS: Basophils # (A) 0.03 10*3/uL (0.00-0.10); Basophils % (A) 0.4 %; Eosinophils # (A) 0.08 10*3/uL (0.04-0.35); HCT 42.3 % (37.2-46.3); HGB 14.8 g/dL (12.0-15.0); Lymphocytes # (A) 1.96 10*3/uL (0.90-5.00); Lymphocytes % (A) 25.5 %; MCH 31.8 pg (27.0-32.0); Mean Platelet Volume 9.7 fL (9.5-12.2); Monocytes # (A) 0.72 10*3/uL (0.20-1.00); Monocytes % (A) 9.4 %; Neutrophils # (A) 4.89 10*3/uL (1.80-7.70); Neutrophils % (A) 63.6 %; Platelet Count 265 10*3/uL (140-440); RBC 4.65 10*6/uL (4.10-5.20); RDW 11.9 % (11.5-14.5); WBC 7.69 10*3/uL (4.50-10.00)
[2024-09-18 16:50] LABS: Appearance,Urine Clear (Clear); Bilirubin,Urine Negative (Negative); Blood,Urine Negative (Negative); Color,Urine Colorless; Glucose,Urine (UA) Negative (Negative); Ketones,Urine Negative (Negative); Leukocyte Esterase,Urine Trace (Negative); Nitrite,Urine Negative (Negative); Protein,Urine Negative (Negative); RBC,Urine 1 /hpf (0-5); Specific Gravity,Urine 1.002 (1.001-1.035); Squamous Epithelial Cell,Urine 1 /hpf (0-4); Urobilinogen,Urine <2.0 mg/dL (<2.0); WBC,Urine 13 /hpf (0-5)
[2024-09-18 16:59] LABS: ALT 53 U/L (4-34); AST 44 U/L (14-36); African American GFR (CKD) >90 (>60 ml/min/1.73 sqM); Albumin 4.7 g/dL (3.5-5.0); Alkaline Phosphatase 93 U/L (38-126); Anion Gap 12 mmol/L; Blood Urea Nitrogen 11 mg/dL (7-17); Calcium 10.4 mg/dL (8.4-10.2); Carbon Dioxide 21 mmol/L (22-30); Chloride 105 mmol/L (98-107); Glucose 90 mg/dL (74-99); Non-African American GFR(CKD) >90 (>60 ml/min/1.73 sqM); Potassium 3.7 mmol/L (3.5-5.1); Sodium 138 mmol/L (137-145); Total Bilirubin 0.4 mg/dL (0.2-1.3); Total Protein 7.8 g/dL (6.3-8.2)
[2024-09-18 17:06] LABS: INR 0.9 (<1.2); Partial Thromboplastin Time 24.5 sec (22.0-30.0); Prothrombin Time 10.3 sec (10.0-12.5)
[2024-09-18 17:27] LABS: Influenza A Not Detected (Not Detectd); Influenza B Not Detected (Not Detectd); RSV Not Detected (Not Detectd)
[2024-09-18] MEDS: AZITHROMYCIN 500 MG TAB PO STA (18:37)
[2024-09-18] MEDS: DEXAMETHASONE SOD PHOSPHATE 4 MG/ML 1 ML VIAL IVP STA (18:37)
[2024-09-18 18:58] VITALS: BP 137/90; PULSE 92; RESP 16; TEMP 98.2
== END 2024-09-18 18:50 | disposition home or self-care (01) ==
LOC: EC 15:20
DX: J40 Bronchitis, not specified as acute or chronic (principal); B37.0 Candidal stomatitis; Z88.2 Allergy status to sulfonamides
CPT/HCPCS: 36415; 93005; 85379; 80053; 84484; 85025; 85610; 85730; 81001; 81025; 87636; 71046; 99285; 96374; J1100